=== PATIENT | female | born 1945 | race Caucasian/White ===

== ENCOUNTER 2019-12-31 14:57 | Emergency (ER) | payer OTHER ==
[2019-12-31 15:18] VITALS: BP 114/71; PULSE 73; TEMP 98.2; BMI 26.2
[2019-12-31] MEDS ORDERED: MAG HYDROX/AL HYDROX/SIMETH 30 ML UNIT-DOSE CUP PO ONE (15:51)
[2019-12-31] MEDS ORDERED: FAMOTIDINE 20 MG/50 ML IVPB 20 MG/50 ML MG IVPB ONE ×2 (15:51→16:06)
[2019-12-31] MEDS ORDERED: MAG HYDROX/AL HYDROX/SIMETH 30 ML UNIT-DOSE CUP ONE (16:06)
[2019-12-31 17:10] LABS: BASO % 0.2 % (0-2.0); EOS % 0.7 % (0-4.5); HEMATOCRIT 36.9 % (32.4-45.2); LYMPH % 34.3 % (8-40); MCH 27.1 pg (25.7-33.7); MCHC 32.4 g/dl (32.0-36.0); MEAN CELL VOLUME 83.6 fl (80-96); MEAN PLT VOLUME 8.2 fl (7.5-11.1); MONO % 8.8 % (3.8-10.2); PLATELET COUNT 232 K/MM3 (134-434); RBC 4.42 M/mm3 (3.60-5.2); RDW 13.8 % (11.6-15.6); WHITE BLOOD COUNT 9.6 K/mm3 (4.0-10.0)
[2019-12-31 17:47] LABS: ALBUMIN 3.8 g/dl (3.4-5.0); ALK PHOS 85 U/L (45-117); ANION GAP 8 MMOL/L (8-16); BILIRUBIN,TOTAL 0.5 mg/dL (0.2-1); BLOOD UREA NITROGEN 16.9 mg/dL (7-18); CALCIUM 8.9 mg/dL (8.5-10.1); CHLORIDE 105 mmol/L (98-107); CO2 28 mmol/L (21-32); CREATININE 1.1 mg/dL (0.55-1.3); GLUCOSE,RANDOM 91 mg/dL (74-106); LIPASE 315 U/L (73-393); POTASSIUM 3.8 mmol/L (3.5-5.1); SGOT/AST 19 U/L (15-37); SGPT/ALT 21 U/L (13-61); SODIUM 141 mmol/L (136-145); TOT PROT 7.2 g/dl (6.4-8.2)
[2019-12-31 19:26] LABS: ARTERIAL BLD GAS O2 SATURATION 95.5 mmHg (95-98); ARTERIAL BLOOD GAS PO2 75.3 mmHg (80-100); ARTERIAL BLOOD GAS pH 7.427 (7.350-7.450)
[2019-12-31 19:27] LABS: ALLENS TEST POSITIVE
[2019-12-31 22:47] LABS: URINE APPEARANCE Clear; URINE BILIRUBIN Negative (NEGATIVE); URINE COLOR Yellow; URINE GLUCOSE (UA) Negative (NEGATIVE); URINE KETONE Negative (NEGATIVE); URINE LEUK ESTERASE Negative (NEGATIVE); URINE NITRITE Negative (NEGATIVE); URINE PROTEIN Negative (NEGATIVE); URINE UROBILINOGEN 0.2 mg/dL (0.2-1.0)
[2019-12-31 22:58] LABS: EPI CELLS 10.2 /uL (0-25.1); HYALINE CASTS 0.77 /uL (0-3.1); URINE BACTERIA 38.1 /uL (0-1359); URINE RBC 15.6 /uL (0-23.9); URINE WBC 27.6 /uL (0-25.8)
== END 2019-12-31 23:18 | disposition home or self-care (01) ==
LOC: JER 14:57
PROC: 3E033GC Introduction of Other Therapeutic Substance into Peripheral Vein, Percutaneous Approach (ICD-10-PCS; principal; 2019-12-31)
DX: K21.9 Gastro-esophageal reflux disease without esophagitis (principal)
CPT/HCPCS: 36415; 36600; 71045-TC-FY; 74177-TC; 76705-TC; 80053; 81003; 82803; 83690; 84484; 85025; 87077; 87086; 93005; 93010; 99285-25; Q9967

== ENCOUNTER 2020-02-21 12:35 | Emergency (ER) | payer OTHER ==
[2020-02-21 12:48] VITALS: TEMP 98.2; BMI 26.3
--- NOTE | 2020-02-21 12:48 | PDOC ---
History of Present Illness - General Stated Complaint: ABDOMINAL PAIN - History of Present Illness Initial Comments: 02/21/20 12:53 74yo F with PMH of HTN, HLD, DM, CVA with residual left sided weakness, arthritis coming from [facility] who presents with 3 days of worsening epigastric abdominal pressure like pain worse after eating, nonradiating and associated with nausea. The patient reports that she has had ulcers in the past that normally are not as severe as her current pain. She denies F/C/vomiting/diarrhea/Constipation/dysuria/discharge/chest pain. She endorses nausea, increase frequency, and epigastric pain. ROS GENERAL/CONSTITUTIONAL: No fever or chills. No weakness. HEAD, EYES, EARS, NOSE AND THROAT: No change in vision. No ear pain or dischar ge. No sore throat. CARDIOVASCULAR: No chest pain or shortness of breath RESPIRATORY: No cough, wheezing, or hemoptysis. GASTROINTESTINAL: + nausea, No vomiting, diarrhea or constipation. GENITOURINARY: No dysuria, +frequency MUSCULOSKELETAL: No joint or muscle swelling or pain. No neck or back pain. SKIN: No rash NEUROLOGIC: No headache, vertigo, loss of consciousness, or change in strength/sensation. ENDOCRINE: No increased thirst. No abnormal weight change HEMATOLOGIC/LYMPHATIC: No anemia, easy bleeding, or history of blood clots. ALLERGIC/IMMUNOLOGIC: No hives or skin allergy. PE vital sign:WML GENERAL: Awake, alert, and fully oriented, in no acute distress HEAD: No signs of trauma, normocephalic, atraumatic EYES: EOMI, sclera anicteric, conjunctiva clear ENT: oropharynx clear without exudates. Moist mucosa NECK: Normal ROM, supple LUNGS: No distress, speaks full sentences, clear to auscultation bilaterally HEART: Regular rate and rhythm, normal S1 and S2, no murmurs, rubs or gallops, peripheral pulses normal and equal bilaterally. ABDOMEN: Soft, + epigastric ttp. negative ackerman, No guarding, no rebound. No masses EXTREMITIES : Normal inspection, Normal range of motion, no edema. No clubbing or cyanosis. NEUROLOGICAL: Cranial nerves II through XII grossly intact. Normal speech, no focal sensorimotor deficits SKIN: Warm, Dry, normal turgor, no rashes or lesions noted Assessment and Plan 74yo F with PMH of HTN, HLD, DM, CVA with residual left sided weakness, ar thritis coming from [facility] who presents with 3 days of worsening epigastric abdominal pressure like pain worse after eating, nonradiating and associated with nausea. Consider peptic ulcer vs GERD vs cholelithaisis vs pancreatitis - cbc,cmp, ekg, cxr, trop, lactate -U/S -UA Given GI cocktail 02/21/20 13:25 02/21/20 13:31 02/21/20 16:28 Lab came back showed unremarkable result. UA is negative for UTI. U/S showed no gallstone. CT scan was unremarkable for acute emergent GI problems. Possible hepatic stenosis. 02/21/20 16:46 Patient felt improvement after medication. Patient is safe to discharge home with prescription of pepsid, maalox. Encourage to follow up with PCP and GI. Past History - Medical History Allergies/Adverse Reactions: Allergies Allergy/AdvReac Type Severity Reaction Status Date / Time No Known Allergies Allergy Verified 02/21/20 15:52 Home Medications: Ambulatory Orders Acetaminophen 650 mg PO QID PRN 12/31/19 Ascorbic Acid [Vitamin C] 500 mg PO DAILY 12/31/19 Atorvastatin Ca [Lipitor] 80 mg PO HS 12/31/19 Cholecalciferol (Vitamin D3) [Vitamin D3 -] 50,000 unit PO WEEKLY 12/31/19 Cranberry 500 mg PO DAILY 12/31/19 Docusate Sodium [Colace] 200 mg PO HS 12/31/19 Donepezil HCl [Aricept] 10 mg PO DAILY 12/31/19 Famotidine [Pepcid -] 40 mg PO BID #14 tablet 12/31/19 Ferrous Sulfate [Feosol] 325 mg PO DAILY 12/31/19 Hctz 25Mg/Triamterene [Dyazide 25/37.5 -] 12.5 mg PO DAILY 12/31/19 Hydrochlorothiazide [Hctz -] 12.5 mg PO DAILY 12/31/19 Lisinopril 10 mg PO DAILY 12/31/19 Mag Hydrox/Al Hydrox/Simeth [Mylanta Suspension -] 30 ml PO Q6H #1 bottle 12/31/19 Melatonin 5 mg PO HS 12/31/19 Omeprazole 20 mg PO DAILY 12/31/19 Paroxetine HCl 40 mg PO DAILY 12/31/19 Quetiapine Fumarate [Seroquel -] 50 mg PO HS 12/31/19 Zolpidem Tartrate 10 mg PO BID 12/31/19 Calcium Carbonate/Simethicone [Maalox Advanced Tab Chew] 1 each PO PRN 10 Days #10 tab.chew 02/21/20 Famotidine [Pepcid] 20 mg PO PRN 10 Days #10 tablet 02/21/20 CVA: Yes (5YRS AGO) COPD: No Diabetes: Yes HTN: Yes Hypercholesterolemia: Yes Psychiatric Problems: Yes (DEPRESSION/ANXIETY) - Immunization History Immunization Up to Date: Yes - Psycho-Social/Smoking History Smoking History: Never smoked Have you smoked in the past 12 months: No ED Treatment Course - LABORATORY CBC & Chemistry Diagram: 02/21/20 13:41 02/21/20 13:41 Discharge - Discharge Information Problems reviewed: Yes Clinical Impression/Diagnosis: Peptic ulcer Condition: Good Disposition: HOME - Additional Discharge Information Prescriptions: Calcium Carbonate/Simethicone [Maalox Advanced Tab Chew] 1 each PO PRN 10 Days #10 tab.chew Famotidine [Pepcid] 20 mg PO PRN 10 Days #10 tablet - Follow up/Referral Referrals: Johnson Campo MD [Staff Physician] - - Patient Discharge Instructions Patient Printed Discharge Instructions: DI for Peptic Ulcer Additional Instructions: You were seen in the ED for complaints of upper abdominal pain. In the ED you were evaluated with labwork, ultrasound, CAT scan. Your results showed no abnormality. There does not appear to be an acute need for immediate hospitalization. You are advised to follow up with your Primary Care Physician within 1 week. You were given a referral to GI doctor, please follow up within 1 week. You were given a prescription for pepcid, and maalox, (antacid medication ) Return to the ED immediately if you experience worsening nausea, vomiting, abdominal pain, blood in stool, lightheadedness or any other concerning symptoms. - Post Discharge Activity
[2020-02-21] MEDS ORDERED: MAG HYDROX/AL HYDROX/SIMETH 30 ML UNIT-DOSE CUP PO ONE (12:49)
[2020-02-21] MEDS ORDERED: FAMOTIDINE 20 MG/50 ML IVPB 20 MG/50 ML MG IVPB ONE ×2 (12:49→14:01)
[2020-02-21] MEDS ORDERED: SODIUM CHLORIDE 0.9% 500 ML INFUS.BAG IV ONE (13:18)
[2020-02-21] MEDS ORDERED: ACETAMINOPHEN 325 MG TABLET (FP) PO ONE (13:43)
[2020-02-21 13:58] LABS: BASO % 0.3 % (0-2.0); EOS % 0.2 % (0-4.5); HEMATOCRIT 40.6 % (32.4-45.2); HEMOGLOBIN 13.2 GM/dL (10.7-15.3); LYMPH % 30.9 % (8-40); MCH 27.1 pg (25.7-33.7); MCHC 32.6 g/dl (32.0-36.0); MEAN CELL VOLUME 83.2 fl (80-96); MEAN PLT VOLUME 8.3 fl (7.5-11.1); MONO % 6.4 % (3.8-10.2); NEUT % 62.2 % (42.8-82.8); PLATELET COUNT 236 K/MM3 (134-434); RBC 4.88 M/mm3 (3.60-5.2); RDW 13.5 % (11.6-15.6); WHITE BLOOD COUNT 10.3 K/mm3 (4.0-10.0)
[2020-02-21] MEDS ORDERED: MAG HYDROX/AL HYDROX/SIMETH 30 ML UNIT-DOSE CUP ONE (14:01)
[2020-02-21] MEDS ORDERED: ACETAMINOPHEN 325 MG TABLET (FP) ONE (14:02)
[2020-02-21 14:17] LABS: ALBUMIN 4.1 g/dl (3.4-5.0); BILIRUBIN,TOTAL 0.6 mg/dL (0.2-1); BLOOD UREA NITROGEN 24.9 mg/dL (7-18); CALCIUM 10.1 mg/dL (8.5-10.1); CREATININE 1.2 mg/dL (0.55-1.3); POTASSIUM 3.7 mmol/L (3.5-5.1); TOT PROT 7.7 g/dl (6.4-8.2)
[2020-02-21 16:10] LABS: PH,URINE 8.5 (5.0-8.0); URINE APPEARANCE CLEAR; URINE BILIRUBIN NEGATIVE (NEGATIVE); URINE COLOR YELLOW; URINE GLUCOSE (UA) NEGATIVE (NEGATIVE); URINE KETONE TRACE (NEGATIVE); URINE LEUK ESTERASE NEGATIVE (NEGATIVE); URINE NITRITE NEGATIVE (NEGATIVE); URINE PROTEIN NEGATIVE (NEGATIVE)
[2020-02-21] MEDS ORDERED: LIDOCAINE VISCOUS 2% ORAL/TOP 20 ML UNIT-DOSE CUP MM ONE (16:29)
[2020-02-21] MEDS ORDERED: SUCRALFATE 1 GM TABLET (FP) PO ONE (16:30)
[2020-02-21] MEDS ORDERED: LIDOCAINE VISCOUS 2% ORAL/TOP 20 ML UNIT-DOSE CUP ONE (16:33)
[2020-02-21] MEDS ORDERED: SUCRALFATE 1 GM TABLET (FP) ONE (16:33)
[2020-02-21 16:48] VITALS: BP 143/91; PULSE 85
--- NOTE | 2020-02-21 16:56 | PDOC ---
Documentation entered by Muna Brown SCRIBE, acting as scribe for Jhonatan Connors MD. Jhonatan Connors MD: This documentation has been prepared by the Kevin harman Brenda, SCRIBE, under my direction and personally reviewed by me in its entirety. I confirm that the documentation accurately reflects all work, treatment, procedures, and medical decision making performed by me. Attending Attestation - Resident Resident Name: Khris Whitlock - ED Attending Attestation I have performed the following: I have examined & evaluated the patient, The case was reviewed & discussed with the resident, I agree w/resident's findings & plan, Exceptions are as noted - HPI HPI: 02/21/20 17:04 74yo F with PMH of HTN, HLD, DM, CVA with residual left sided weakness, arthritis coming from [facility] who presents with 3 days of worsening epigastric abdominal pressure like pain worse after eating, nonradiating and associated with nausea. - Physicial Exam PE: 02/21/20 17:06 Vitals: Triage Vital signs reviewed ultrasound General Appearance: No acute distress, well nourished well developed, Head: Atraumatic, Cardiac: Regular rate and rhythym, no murmurs, no rubs, no gallops, Lungs: Clear to auscultation bilateral, good air movement bilaterally, Abdomen: Soft, non distended, normal bowel sounds, non tender to palpation Extremities: Full range of motion to all extremities, no cyanosis, clubbing, or edema Psych: Normal mood, normal affect - Medical Decision Making 02/21/20 17:06 74yo F with PMH of HTN, HLD, DM, CVA with residual left sided weakness, arthritis coming from [facility] who presents with 3 days of worsening epigastric abdominal pressure like pain worse after eating, nonradiating and associated with nausea. No significant pain on abdominal exam but patient still complaining of persistent pain labs within normal limits ultrasound within normal limits CAT scan demonstrates no acute pathology patient feels better after GI cocktail Will recommend GI follow-up Findings, need for follow-up and strict return instructions discussed with patient. Discharge - Discharge Information Problems reviewed: Yes Clinical Impression/Diagnosis: Peptic ulcer Condition: Good Disposition: HOME - Additional Discharge Information Prescriptions: Calcium Carbonate/Simethicone [Maalox Advanced Tab Chew] 1 each PO PRN 10 Days #10 tab.chew Famotidine [Pepcid] 20 mg PO PRN 10 Days #10 tablet - Follow up/Referral Referrals: Johnson Campo MD [Staff Physician] - - Patient Discharge Instructions Patient Printed Discharge Instructions: DI for Peptic Ulcer Additional Instructions: You were seen in the ED for complaints of upper abdominal pain. In the ED you were evaluated with labwork, ultrasound, CAT scan. Your results showed no abnormality. There does not appear to be an acute need for immediate hospitalization. You are advised to follow up with your Primary Care Physician within 1 week. You were given a referral to GI doctor, please follow up within 1 week. You were given a prescription for pepcid, and maalox, (antacid medication ) Return to the ED immediately if you experience worsening nausea, vomiting, abdominal pain, blood in stool, lightheadedness or any other concerning symptoms. - Post Discharge Activity
[2020-02-21] MEDS ORDERED: SUCRALFATE 1 GM TABLET (FP) PO SCH (22:00)
--- NOTE | 2020-02-22 09:23 | EKG ---
Test Reason : Blood Pressure : / mmHG Vent. Rate : 080 BPM Atrial Rate : 080 BPM P-R Int : 184 ms QRS Dur : 084 ms QT Int : 424 ms P-R-T Axes : 028 -11 011 degrees QTc Int : 489 ms POOR DATA QUALITY, INTERPRETATION MAY BE ADVERSELY AFFECTED NORMAL SINUS RHYTHM WITH SINUS ARRHYTHMIA NORMAL ECG WHEN COMPARED WITH ECG OF 31-DEC-2019 16:41, NO SIGNIFICANT CHANGE WAS FOUND Confirmed by Larry Tijerina MD ([id number]) on 02/22/2020 9:23:11 AM Referred By: Confirmed By:Larry Tijerina MD
== END 2020-02-21 18:39 | disposition home or self-care (01) ==
LOC: JER 12:35
PROC: 3E033GC Introduction of Other Therapeutic Substance into Peripheral Vein, Percutaneous Approach (ICD-10-PCS; principal; 2020-02-21)
DX: K27.9 Peptic ulcer, site unspecified, unspecified as acute or chronic, without hemorrhage or perforation (principal)
CPT/HCPCS: 36415; 71046-TC-FY; 74177-TC; 76705-TC; 80053; 81003; 83605; 83690; 84484; 85025; 87086; 93005; 93010; 99285-25; Q9967

== ENCOUNTER 2020-04-04 11:03 | Day surgery (SDC) | payer OTHER ==
--- OUTSIDE RECORDS SUMMARY | 2020-03-21 09:32 | XMS ---
:1945 Author Organization [facility] Care Team Providers Name Role Phone Dano Dallas Unavailable Unavailable MD Kee Robb Unavailable Unavailable Mahdi NEVAEH Dos Santos Unavailable Unavailable Mahdi NEVAEH Dos Santos Unavailable Unavailable Mahdi NEVAEH Dos Santos Unavailable Unavailable Mahdi NEVAEH Dos Santos Unavailable Unavailable Mahdi NEVAEH Dos Santos Unavailable Unavailable Mahdi NEVAEH Dos Santos Unavailable Unavailable Mahdi NEVAEH Dos Santos Unavailable Unavailable MD Brennon Jack Unavailable Unavailable Bora Bourgeois Unavailable Unavailable Lufrano, Larisa Unavailable Unavailable Lufrano, Larisa Unavailable Unavailable Lufrano, Larisa Unavailable Unavailable Lufrano, Larisa Unavailable Unavailable Lufrano, Larisa Unavailable Unavailable Lufrano, Larisa Unavailable Unavailable Lufrano, Larisa Unavailable Unavailable Jez Tariq MD Unavailable Unavailable Amber Tariq MD Unavailable Unavailable Amber Tariq MD Unavailable Unavailable Amber Tariq MD Unavailable Unavailable MD Levon Unavailable Unavailable MD Levon Unavailable Unavailable MD Levon Unavailable Unavailable MD Levon Unavailable Unavailable MD Levon Unavailable Unavailable MD Levon Unavailable Unavailable MD Levon Unavailable Unavailable Unavailable Unavailable Re-disclosure Warning The records that you are about to access may contain information from federally- assisted alcohol or drug abuse programs. If such information is present, then the following federally mandated warning applies: This information has been disclosed to you from records protected by federal confidentiality rules (42 CFR part 2). The federal rules prohibit you from making any further disclosure of this information unless further disclosure is expressly permitted by the written consent of the person to whom it pertains or as otherwise permitted by 42 CFR part 2. A general authorization for the release of medical or other information is NOT sufficient for this purpose. The Federal rules restrict any use of the information to criminally investigate or prosecute any alcohol or drug abuse patient.The records that you are about to access may contain highly sensitive health information, the redisclosure of which is protected by Article 27-F of the [facility] Public Health law. If you continue you may haveaccess to information: Regarding HIV / AIDS; Provided by facilities licensed or operated by the [facility] Office of Mental Health; or Provided by the [facility] Office for People With Developmental Disabilities. If such information is present, then the following [facility] mandated warning applies: This information has been disclosed to you from confidential records which are protected by state law. State law prohibits you from making any further disclosure of this information without the specific written consent of the person to whom it pertains, or as otherwise permitted by law. Any unauthorized further disclosure in violation of state law may result in a fine or snf sentence or both. A general authorization for the release of medical or other information is NOT sufficient authorization for further disclosure. Advance Directives Directive Description Teacher Dancing Patient Financial Services Specialist Status Observation Data Description Source(s ) [facility] CPR S IGMACARE for Nursing and [facility] Re[facility]ita latrice n) [facility] CPR S IGMACARE for Nursing and ([facility] An [facility] Rehabilita latrice n) [facility] CPR S IGMACARE for Nursing and ([facility] Nursing An d Rehabilita latrice n) [facility] CPR S IGMACARE for Nursing and ([facility] An d Rehabilita latrice n) CPR [facility] CPR S IGMACARE for Nursing and ([facility] for Nursing An d Rehabilita latrice n) CPR [facility] CPR S IGMACARE for Nursing and ([facility] for Nursing An d Rehabilita latrice n) CPR [facility] CPR S IGMACARE for Nursing and ([facility] for Nursing An d Rehabilita latrice n) CPR [facility] CPR S IGMACARE for Nursing and ([facility] Nursing An d Rehabilita latrice n) CPR [facility] CPR S IGMACARE for Nursing and ([facility] for Nursing An d Rehabilita latrice n) CPR [facility] CPR S IGMACARE for Nursing and ([facility] for Nursing An d Rehabilita latrice n) Allergies and Adverse Reactions Type Description Substance Reaction Status Data Source(s ) 9 N/A N/A SIGMACARE ([facility] Encounters Encounter Providers Location Date Indications Data Source(s ) Attender: Larisa 03/19/2020 [facility] ([facility] 12:00:00 AM EDT Medical, ) Office Attender: Larisa Gómez 03/19/2020 12:00:00 AM EDT MEDGEN ([facility], ) Office Attender: Larisa Gómez 03/19/2020 12:00:00 AM EDT MEDGEN ([facility], ) Office Attender: Larisa Gómez 03/19/2020 12:00:00 AM EDT [facility]GEN ([facility], ) Office Attender: Larisa Gómez 03/19/2020 12:00:00 AM EDT MEDGEN ([facility], ) Office Attender: Larisa Gómez 03/19/2020 12:00:00 AM EDT MEDGEN ([facility], ) Office Emergency Attender: Maria G 5T-EMERG 04/14/2019 03:41:00 [facility] - [facility]14[facility] 09:00:00 AM EDT PSYCH EVAL Patient discharged. Emergency Attender: Bora 5T-EMERG 01/25/2019 01:27:00 SUICIDAL [facility] - Sophia Bourgeois PM EDT - 01/25/2019 [facility] 06:40:00 PM EDT SUICIDAL Patient discharged. S Attender: MD Sweet ICU-GI SUITE 01/04/2019 11:13:22 AM [facility] EDT - 01/11/2019 Hospital 01:04:00 PM EDT GASTRO S Attender: MD Sweet ICU-GI SUITE 12/22/2018 02:17:08 PM GA [facility] EDT Hospital GASTRO Admission cancelled. Disregard status an d admitted date. Emergency Attender: Jez ICU-EMERG 12/07/2018 ABD PAIN/ REF [facility] - Jermaine Chandni MDAttender: 01:26:00 PM EDT - [facility] 12/07/2018 Hospital 06:00:00 PM EDT ABD PAIN/ REF FROM CLINIC Patient discharged. Outpatient Attender: MD Willett ICU-OBGYN 12/07/2018 11:26:00 [facility] - [facility] AM EDT Hospital Admission cancelled. Disregard status an d admitted date. Inpatient Attender: Mahdi Unit 4-Unit 5 10/20/2018 [facility] (Syed Dos Santos MD 03:40:00 PM EDT - [facility]24[facility] ) 03:26:00 PM EST Patient discharged. Medications Medication Brand Start Product Dose Route Administrative Pharmacy [facility] Indications Reaction Description Data Name Date Form Instructions Instructions Source(s) Aluminum JAY-L 03/19/ complet JAY-LANT A [facility] (St Hydroxide ANTA:3 2019 ed [facility] 40 MG/ML / 47161 12:00: Medica l, Magnesium 00 AM PC) Hydroxide EDT 40 MG/ML / Simethicone 4 MG/ML Oral Suspension JAY-LANTA: [id number] CRANBERRY:6 03/19/ complet CRANBERR Y MED[facility] (St 79040 2019 ed [facility] 12:00: Medical, 00 AM PC) EDT Aspirin 81 ASPIRI 03/19/ complet ASPIRIN [facility] (St MG Delayed N:3084 2019 ed [facility] Release 16 12:00: Medical, Oral Tablet 00 AM PC) ASPIRIN:308 EDT 416 ferrous FERROU 03/19/ complet FERROUS ME DGEN (St sulfate 325 S 2019 ed SULFATE [facility] MG Oral SULFAT 12:00: Medical, Tablet E:3103 00 AM PC) FERROUS 25 EDT SULFATE:310 325 Docusate DOCUSA 03/19/ complet DOCUSATE MED[facility] (St Sodium 100 TE:109 2019 ed [facility] MG Oral 9279 12:00: Medical, Tablet 00 AM PC) DOCUSATE:10 EDT 24410 FLUTICASONE 03/19/ complet FLUTICAS ONE [facility] (St NASAL:33730 2019 ed NASAL [facility] 07 12:00: Medical, 00 AM PC) EDT Memantine NAMEND 03/19/ complet NAMENDA [facility] (St hydrochlori A:9965 2019 ed [facility] de 5 MG 74 12:00: Medical, Oral Tablet 00 AM PC) [Namenda] EDT NAMENDA:996 574 Lisinopril LISINO 03/19/ complet LISINOP RIL [facility] (St 10 MG Oral PRIL:3 2019 ed [facility] Tablet 27164 12:00: Medical, LISINOPRIL: 00 AM PC) 194185 EDT Melatonin 5 MELATO 03/19/ complet MELATO HESHAM [facility] (St MG Oral HESHAM:19 2019 ed [facility] Capsule 9647 12:00: Medical, MELATONIN:1 00 AM PC) 61367 EDT Hydrochloro HYDROC 03/19/ complet HYDROC HLOROT [facility] (St thiazide HLOROT 2019 ed HIAZIDE [facility] 12.5 MG HIAZID 12:00: Medical, Oral E:1998 00 AM PC) Capsule 03 EDT HYDROCHLORO THIAZIDE:19 9903 atorvastati LIPITO 03/19/ complet LIPITO R [facility] (St n 80 MG R:2620 2019 ed [facility] Oral Tablet 95 12:00: Medica l, [Lipitor] 00 AM PC) LIPITOR:262 EDT 095 Ergocalcife VITAMI 03/19/ complet VITAMI N D2 [facility] (St rol 58685 N 2019 ed [facility] UNT Oral D2:136 12:00: Medical , Capsule 7410 00 AM PC) VITAMIN EDT D2:[id number] Ascorbic VITAMI 03/19/ complet VITAMIN C [facility] (St Acid 500 MG N 2019 ed [facility] Oral C:1988 12:00: Medical, Capsule 96 00 AM PC) VITAMIN EDT C:[id number] quetiapine SEROQU 03/19/ complet SEROQUE L [facility] (St 50 MG Oral EL:616 2019 ed [facility] Tablet 489 12:00: Medical, [Seroquel] 00 AM PC) SEROQUEL:61 EDT 6489 pantoprazol PROTON 03/19/ DELAYED 60 complet PRO TONIX [facility] (St e 40 MG IX:284 2019 RELEASE ed [facility] Delayed 400 12:00: TABLET Medical, Release 00 AM PC) Oral Tablet EDT [Protonix] PROTONIX:28 4400 Paroxetine PAROXE 03/19/ complet PAROXET INE [facility] (St 40 MG HENRIK:1 2019 ed [facility] PAROXETINE: 178669 12:00: Medi adriano, [id number] 00 AM PC) EDT Omeprazole OMEPRA 03/19/ complet OMEPRAZ OLE [facility] (St 20 MG ZOLE:1 2019 ed [facility] Delayed 81173 12:00: Medical, Release 00 AM PC) Oral EDT Capsule OMEPRAZOLE: [id number] Zolpidem ZOLPID 03/19/ complet ZOLPIDEM [facility] (St tartrate 10 EM:854 2019 ed [facility] MG Oral 873 12:00: Medical, Tablet 00 AM PC) ZOLPIDEM:85 EDT 4873 ferrous FERROU 03/19/ complet FERROUS ME DGEN (St sulfate 325 S 2019 ed SULFATE [facility] MG Oral SULFAT 12:00: Medical, Tablet E:3103 00 AM PC) FERROUS 25 EDT SULFATE:310 325 Lisinopril LISINO 03/19/ complet LISINOP RIL [facility] (St 10 MG Oral PRIL:3 2019 ed [facility] Tablet 42329 12:00: Medical, LISINOPRIL: 00 AM PC) [id number] EDT atorvastati LIPITO 03/19/ complet LIPITO R [facility] (St n 80 MG R:2620 2019 ed [facility] Oral Tablet 95 12:00: Medica l, [Lipitor] 00 AM PC) LIPITOR:262 EDT 095 Hydrochloro HYDROC 03/19/ complet HYDROC HLOROT [facility] (St thiazide HLOROT 2019 ed HIAZIDE [facility] 12.5 MG HIAZID 12:00: Medical, Oral E:1999 00 AM PC) Capsule 03 EDT HYDROCHLORO THIAZIDE:9902 Aluminum JAY-L 03/19/ complet JAY-LANT A [facility] (St Hydroxide ANTA:3 2019 ed [facility] 40 MG/ML / 00022 12:00: Medica l, Magnesium 00 AM PC) Hydroxide EDT 40 MG/ML / Simethicone 4 MG/ML Oral Suspension JAY-LANTA: 936683 FLUTICASONE 03/19/ complet FLUTICAS ONE [facility] (St NASAL:05803 2019 ed NASAL [facility] 07 12:00: Medical, 00 AM PC) EDT Acetaminoph ACETAM 03/19/ complet ACETAM INOPHE [facility] (St en 325 MG INOPHE 2019 ed N [facility] Oral Tablet N:3137 12:00: Medi adriano, ACETAMINOPH 82 00 AM PC) EN:578346 EDT Donepezil ARICEP 03/19/ complet ARICEPT [facility] (St hydrochlori T:9972 2019 ed [facility] de 10 MG 24 12:00: Medical, Oral Tablet 00 AM PC) [Aricept] EDT ARICEPT:997 224 Memantine NAMEND 03/19/ complet NAMENDA [facility] (St hydrochlori A:9965 2019 ed [facility] de 5 MG 74 12:00: Medical, Oral Tablet 00 AM PC) [Namenda] EDT NAMENDA:996 574 Omeprazole OMEPRA 03/19/ complet OMEPRAZ OLE [facility] (St 20 MG ZOLE:1 2019 ed [facility] Delayed 28977 12:00: Medical, Release 00 AM PC) Oral EDT Capsule OMEPRAZOLE: 229221 Melatonin 5 MELATO 03/19/ complet MELATO HESHAM [facility] (St MG Oral HESHAM:2019 ed [facility] Capsule 9647 12:00: Medical, MELATONIN:1 00 AM PC) 05603 EDT Acetaminoph ACETAM 03/19/ complet ACETAM INOPHE [facility] (St en 325 MG INOPHE 2019 ed N [facility] Oral Tablet N:3137 12:00: Medi adriano, ACETAMINOPH 82 00 AM PC) EN:299870 EDT Donepezil ARICEP 03/19/ complet ARICEPT [facility] (St hydrochlori T:9972 2019 ed [facility] de 10 MG 24 12:00: Medical, Oral Tablet 00 AM PC) [Aricept] EDT ARICEPT:997 224 Aspirin 81 ASPIRI 03/19/ complet ASPIRIN [facility] (St MG Delayed N:3084 2019 ed [facility] Release 16 12:00: Medical, Oral Tablet 00 AM PC) ASPIRIN:308 EDT 416 CRANBERRY:6 complet CRANBERR Y MED[facility] (St 29255 2019 ed [facility] 12:00: Medical, 00 AM PC) EDT Docusate DOCUSA DOCUSATE MEDGEN (St Sodium 100 TE:109 2019 ed [facility] MG Oral 9279 12:00: Medical, Tablet 00 AM PC) DOCUSATE:10 EDT 63991 Aricept Donepe complet Aricept 10 SIGMACARE (donepezil) zil 2018 ed mg tablet ([place] 10 mg hydroc 11:00: [facility] tablet hlorid 00 AM Center for e 10 EST Nursing MG And Oral Rehabilita Tablet tion) [Arice pt] paroxetine Paroxe paroxet ine SIGMACARE 40 mg henrik 2018 ed 40 mg tablet (Sutto n tablet Hydroc 01:20: [facility] hlorid 29 AM Center for e 40 EST Nursing MG And Oral Rehabilita Tablet tion) nitrofurant NITROF complet nitrof uranto SIGMACARE oin URANTO 2019 ed in ([facility] macrocrysta [place], 07:08: macrocrysta l [facility] l 100 mg MACROC 41 AM 100 mg Center for capsule RYSTAL EST capsule Nursing S 100 And MG Rehabilita Oral tion) Capsul e nitrofurant NITROF complet nitrof uranto SIGMACARE oin URANTO 2018 ed in ([facility] macrocrysta [place], 02:00: macrocrysta l [facility] l 100 mg MACROC 00 PM 100 mg Center for capsule RYSTAL EST capsule Nursing S 100 And MG Rehabilita Oral tion) Capsul e Miralax POLYET complet Miralax 17 SIGMACARE (polyethyle HYLENE 2018 ed gram/dose ( [facility] ne glycol GLYCOL 08:00: oral powder [facility] 3350) 17 3350 12 AM Center for gram/dose 60983 EDT Nursing oral powder MG And Powder Rehabilita for tion) Oral Soluti on [Deidra ax] Miralax POLYET 05/05/ complet Miralax 17 SIGMACARE (polyethyle HYLENE 2019 ed gram/dose ( [facility] ne glycol GLYCOL 08:00: oral powder [facility] 3350) 17 3350 12 AM Center for gram/dose 31110 EDT Nursing oral powder MG And Powder Rehabilita for tion) Oral Soluti on [Deidra ax] Miralax POLYET 05/05/ complet Miralax 17 SIGMACARE (polyethyle HYLENE 2019 ed gram/dose ( [facility] ne glycol GLYCOL 08:00: oral powder [facility] 3350) 17 3350 12 AM Center for gram/dose 57466 EDT Nursing oral powder MG And Powder Rehabilita for tion) Oral Soluti on [Deidra ax] cranberry Cranbe 04/28/ complet cranberr y SIGMACARE 450 mg rry 2019 ed 450 mg ([facility] tablet prepar 10:37: tablet [facility] ation 41 AM Center for 450 MG EDT Nursing Oral And Tablet Rehabilita tion) cranberry Cranbe 04/28/ complet cranberr y SIGMACARE 450 mg rry 2019 ed 450 mg ([facility] tablet prepar 10:37: tablet [facility] ation 41 AM Center for 450 MG EDT Nursing Oral And Tablet Rehabilita tion) cranberry Cranbe 04/28/ complet cranberr y SIGMACARE 450 mg rry 2019 ed 450 mg ([facility] tablet prepar 10:37: tablet [facility] ation 41 AM Center for 450 MG EDT Nursing Oral And Tablet Rehabilita tion) Seroquel quetia complet Seroquel 25 SIGMACARE (quetiapine pine 2018 ed mg tablet (Freed tton ) 25 mg 25 MG 01:23: Park tablet Oral 09 AM Center for Tablet EDT Nursing [Seroq And uel] Rehabilita tion) Seroquel quetia complet Seroquel 25 SIGMACARE (quetiapine pine 2018 ed mg tablet (Freed tton ) 25 mg 25 MG 01:23: [facility] tablet Oral 09 AM Center for Tablet EDT Nursing [Seroq And uel] Rehabilita tion) Seroquel quetia complet Seroquel 25 SIGMACARE (quetiapine pine 2018 ed mg tablet (Freed tton ) 25 mg 25 MG 01:23: [facility] tablet Oral 09 AM Center for Tablet EDT Nursing [Seroq And uel] Rehabilita tion) Seroquel quetia 04/15/ complet Seroquel 25 SIGMACARE (quetiapine marylou 2018 ed mg tablet (Freed tton ) 25 mg 25 MG 01:16: [facility] tablet Oral 48 AM Center for Tablet EDT Nursing [Seroq And uel] Rehabilita tion) Seroquel quetia 04/15/ complet Seroquel 25 SIGMACARE (quetiapine marylou 2018 ed mg tablet (Freed tton ) 25 mg 25 MG 01:16: [facility] tablet Oral 48 AM Center for Tablet EDT Nursing [Seroq And uel] Rehabilita tion) Seroquel quetia complet Seroquel 25 SIGMACARE (quetiapine marylou 2018 ed mg tablet (Freed tton ) 25 mg 25 MG 01:16: [facility] tablet Oral 48 AM Center for Tablet EDT Nursing [Seroq And uel] Rehabilita tion) Bactrim DS Sulfam 04/14/ complet Bactrim DS SIGMACARE (sulfametho ethoxa 2019 ed 800 mg-160 ([facility] xazole-trim zole 09:00: mg tablet P ark ethoprim) 800 MG 00 AM Center for 800 mg-160 / EDT Nursing mg tablet Trimet And hoprim Rehabilita 160 MG tion) Oral Tablet [Bactr im] Sulfamethox Bactri [id number] active Bactr im DS [facility] azole 800 m DS 2019 {tab( Health MG / 800 06:56: s)} System Trimethopri mg-160 41 AM m 160 MG mg EDT Oral Tablet oral [Bactrim] tablet Bactrim DS 800 mg-160 mg oral tablet Seroquel quetia 04/14/ complet Seroquel 25 SIGMACARE (quetiapine pine 2018 ed mg tablet (Freed tton ) 25 mg 25 MG 05:42: Park tablet Oral 50 AM Center for Tablet EDT Nursing [Seroq And uel] Rehabilita tion) Ambien Zolpid 04/10/ complet Ambien 5 mg SIGMACARE (zolpidem) em 2019 ed tablet ([facility] 5 mg tablet tartra 07:49: Park te 5 30 AM Center for MG EDT Nursing Oral And Tablet Rehabilita [Ambie tion) n] Ambien Zolpid 04/10/ complet Ambien 5 mg SIGMACARE (zolpidem) em 2018 ed tablet ([facility] 5 mg tablet tartra 07:49: Park te 5 30 AM Center for MG EDT Nursing Oral And Tablet Rehabilita [Ambie tion) n] Ambien Zolpid 04/10/ complet Ambien 5 mg SIGMACARE (zolpidem) em 2018 ed tablet ([facility] 5 mg tablet tartra 07:49: Park te 5 30 AM Center for MG EDT Nursing Oral And Tablet Rehabilita [Ambie tion) n] Seroquel quetia 02/28/ complet Seroquel 25 SIGMACARE (quetiapine pine 2018 ed mg tablet (Freed tton ) 25 mg 25 MG 05:47: [facility] tablet Oral 34 AM Center for Tablet EDT Nursing [Seroq And uel] Rehabilita tion) Seroquel quetia 02/28/ complet Seroquel 25 SIGMACARE (quetiapine pine 2018 ed mg tablet (Freed tton ) 25 mg 25 MG 05:47: [facility] tablet Oral 34 AM Center for Tablet EDT Nursing [Seroq And uel] Rehabilita tion) Seroquel quetia 02/28/ complet Seroquel 25 SIGMACARE (quetiapine pine 2018 ed mg tablet (Freed tton ) 25 mg 25 MG 05:43: [facility] tablet Oral 05 AM Center for Tablet EDT Nursing [Seroq And uel] Rehabilita tion) Seroquel quetia 02/28/ complet Seroquel 25 SIGMACARE (quetiapine pine 2018 ed mg tablet (Freed tton ) 25 mg 25 MG 05:43: [facility] tablet Oral 05 AM Center for Tablet EDT Nursing [Seroq And uel] Rehabilita tion) Seroquel quetia 02/26/ complet Seroquel 25 SIGMACARE (quetiapine pine 2018 ed mg tablet (Freed tton ) 25 mg 25 MG 03:00: [facility] tablet Oral 00 PM Center for Tablet EDT Nursing [Seroq And uel] Rehabilita tion) Seroquel quetia 02/17/ complet Seroquel 25 SIGMACARE (quetiapine pine 2018 ed mg tablet (Freed tton ) 25 mg 25 MG 09:02: [facility] tablet Oral 06 AM Center for Tablet EDT Nursing [Seroq And uel] Rehabilita tion) hydrocortis Hydroc complet hydroc ortiso SIGMACARE one 1 % ortiso 2019 ed ne 1 % ([facility] topical ne 10 06:20: topical [facility] cream MG/ML 23 AM cream Center for Topica EDT Nursing l And Cream Rehabilita tion) hydrocortis Hydroc complet hydroc ortiso SIGMACARE one 1 % ortiso 2018 ed ne 1 % ([facility] topical ne 10 06:20: topical [facility] cream MG/ML 23 AM cream Center for Topica EDT Nursing l And Cream Rehabilita tion) hydrocortis Hydroc complet hydroc ortiso SIGMACARE one 1 % ortiso 2018 ed ne 1 % ([facility] topical ne 10 06:20: topical [facility] cream MG/ML 23 AM cream Center for Topica EDT Nursing l And Cream Rehabilita tion) hydrocortis Hydroc complet hydroc ortiso SIGMACARE one 1 % ortiso 2018 ed ne 1 % ([facility] topical ne 10 06:20: topical [facility] cream MG/ML 23 AM cream Center for Topica EDT Nursing l And Cream Rehabilita tion) Seroquel quetia 01/26/ complet Seroquel 25 SIGMACARE (quetiapine pine 2019 ed mg tablet (Freed tton ) 25 mg 25 MG 03:00: [facility] tablet Oral 00 PM Center for Tablet EDT Nursing [Seroq And uel] Rehabilita tion) Namenda Memant 01/25/ complet Namenda 5 mg SIGMACARE (memantine) ine 2019 ed tablet (Sutto n 5 mg tablet hydroc 03:54: [facility] hlorid 24 AM Center for e 5 MG EDT Nursing Oral And Tablet Rehabilita [Namen tion) da] Namenda Memant 01/25/ complet Namenda 5 mg SIGMACARE (memantine) ine 2019 ed tablet (Sutto n 5 mg tablet hydroc 03:54: [facility] hlorid 24 AM Center for e 5 MG EDT Nursing Oral And Tablet Rehabilita [Namen tion) da] Namenda Memant 01/25/ complet Namenda 5 mg SIGMACARE (memantine) ine 2019 ed tablet (Sutto n 5 mg tablet hydroc 03:54: [facility] hlorid 24 AM Center for e 5 MG EDT Nursing Oral And Tablet Rehabilita [Namen tion) da] Namenda Memant 01/25/ complet Namenda 5 mg SIGMACARE (memantine) ine 2019 ed tablet (Sutto n 5 mg tablet hydroc 03:54: [facility] orid 24 AM Center for e 5 MG EDT Nursing Oral And Tablet Rehabilita [Namen tion) da] Namenda Memant 01/25/ complet Namenda 5 mg SIGMACARE (memantine) ine 2019 ed tablet (Sutto n 5 mg tablet hydroc 03:54: [facility] orid 24 AM Center for e 5 MG EDT Nursing Oral And Tablet Rehabilita [Namen tion) da] Namenda Memant 01/25/ complet Namenda 5 mg SIGMACARE (memantine) ine 2019 ed tablet (Sutto n 5 mg tablet hydroc 03:54: [facility] orid 24 AM Center for e 5 MG EDT Nursing Oral And Tablet Rehabilita [Namen tion) da] Namenda Memant 01/25/ complet Namenda 5 mg SIGMACARE (memantine) ine 2019 ed tablet (Sutto n 5 mg tablet hydroc 03:54: [facility] orid 24 AM Center for e 5 MG EDT Nursing Oral And Tablet Rehabilita [Namen tion) da] pantoprazol pantop 01/11/ complet pantop razole SIGMACARE e 20 mg razole 2018 ed 20 mg ([facility] tablet,candice 20 MG 07:43: tablet,del margarita [facility] yed release Delaye 21 AM ed release Center for d EDT Nursing Releas And e Oral Rehabilita Tablet tion) pantoprazol pantop complet pantop razole SIGMACARE e 20 mg razole 2018 ed 20 mg ([facility] tablet,candice 20 MG 07:43: tablet,del ay [facility] yed release Delaye 21 AM ed release Center for d EDT Nursing Releas And e Oral Rehabilita Tablet tion) pantoprazol pantop complet pantop razole SIGMACARE e 20 mg razole 2018 ed 20 mg ([facility] tablet,candice 20 MG 07:43: tablet,del ay [facility] yed release Delaye 21 AM ed release Center for d EDT Nursing Releas And e Oral Rehabilita Tablet tion) pantoprazol pantop complet pantop razole SIGMACARE e 20 mg razole 2018 ed 20 mg ([facility] tablet,candice 20 MG 07:43: tablet,del ay [facility] yed release Delaye 21 AM ed release Center for d EDT Nursing Releas And e Oral Rehabilita Tablet tion) pantoprazol pantop complet pantop razole SIGMACARE e 20 mg razole 2018 ed 20 mg ([facility] tablet,candice 20 MG 07:43: tablet,del ay [facility] yed release Delaye 21 AM ed release Center for d EDT Nursing Releas And e Oral Rehabilita Tablet tion) pantoprazol pantop complet pantop razole SIGMACARE e 20 mg razole 2018 ed 20 mg ([facility] tablet,candice 20 MG 07:43: tablet,del ay [facility] yed release Delaye 21 AM ed release Center for d EDT Nursing Releas And e Oral Rehabilita Tablet tion) pantoprazol pantop complet pantop razole SIGMACARE e 20 mg razole 2018 ed 20 mg ([facility] tablet,candice 20 MG 07:43: tablet,del ay [facility] yed release Delaye 21 AM ed release Center for d EDT Nursing Releas And e Oral Rehabilita Tablet tion) Aspirin Aspiri 12/27/ complet Aspirin SI [facility] 81 2019 ed Childrens 81 (S [place] (aspirin) MG 06:15: mg chewable P ark 81 mg Chewab 17 AM tablet Center fo r chewable le EDT Nursing tablet Tablet And Rehabilita tion) Aspirin Aspiri 12/27/ complet [facility] 2019 ed Childrens 81 ([place] (aspirin) MG 06:15: mg chewable P ark 81 mg Chewab 17 AM tablet Center fo r chewable le EDT Nursing tablet Tablet And Rehabilita tion) Aspirin Aspiri 12/27/ complet [facility] 81 2018 ed Childrens 81 (S [place] (aspirin) MG 06:15: mg chewable P ark 81 mg Chewab 17 AM tablet Center fo r chewable le EDT Nursing tablet Tablet And Rehabilita tion) Aspirin Aspiri 12/27/ complet [facility] 2019 ed Childrens 81 (S [place] (aspirin) MG 06:15: mg chewable P ark 81 mg Chewab 17 AM tablet Center fo r chewable le EDT Nursing tablet Tablet And Rehabilita tion) Aspirin Aspiri 12/27/ complet Aspirin [facility] 81 2019 ed [facility] 81 ([place] (aspirin) MG 06:15: mg chewable [facility] 81 mg Chewab 17 AM tablet Center fo r chewable le EDT Nursing tablet Tablet And Rehabilita tion) Aspirin Aspiri 12/27/ complet Aspirin [facility] 81 2019 ed [facility] 81 ([place] (aspirin) MG 06:15: mg chewable [facility] 81 mg Chewab 17 AM tablet Center fo r chewable le EDT Nursing tablet Tablet And Rehabilita tion) Aspirin Aspiri 12/27/ complet Aspirin [facility] 81 2019 ed [facility] 81 ([place] (aspirin) MG 06:15: mg chewable [facility] 81 mg Chewab 17 AM tablet Center fo r chewable le EDT Nursing tablet Tablet And Rehabilita tion) Seroquel quetia complet Seroquel 25 [facility] (quetiapine pine 2018 ed mg tablet ([place] ) 25 mg 25 MG 12:38: [facility] tablet Oral 45 PM Center for Tablet EDT Nursing [Seroq And uel] Rehabilita tion) Seroquel quetia complet Seroquel 25 [facility] (quetiapine pine 2018 ed mg tablet ([place] ) 25 mg 25 MG 12:38: [facility] tablet Oral 45 PM Center for Tablet EDT Nursing [Seroq And uel] Rehabilita tion) Acidophilus [id number] complet Acidop hilus [facility] (lactobacil 47136 2018 ed capsule ([place] jan 12:46: [facility] acidophilus 35 PM Center for ) capsule EDT Nursing And Rehabilita tion) omeprazole Omepra complet omepraz ole [facility] 20 mg zole 2018 ed 20 mg ([facility] capsule,del 20 MG 12:46: capsule,de la Lisseth ayed Delaye 33 PM yed release Cente r for release d EDT Nursing Releas And e Oral Rehabilita Capsul tion) e Pepcid Famoti 12/06/ complet Pepcid 20 m g [facility] (famotidine dine 2018 ed tablet ([place] ) 20 mg 20 MG 01:53: [facility] tablet Oral 23 AM Center for Tablet EDT Nursing [Pepci And d] Rehabilita tion) acetaminoph Acetam 12/03/ complet acetam inophe [facility] en 325 mg inophe 2019 ed n 325 mg ([place] tablet n 325 07:19: tablet [facility] MG 05 AM Center for Oral EDT Nursing Tablet And Rehabilita tion) acetaminoph Acetam 12/03/ complet acetam inophe [facility] en 325 mg inophe 2019 ed n 325 mg ([place] tablet n 325 07:19: tablet [facility] MG 05 AM Center for Oral EDT Nursing Tablet And Rehabilita tion) acetaminoph Acetam 12/03/ complet acetam inophe [facility] en 325 mg inophe 2019 ed n 325 mg ([place] tablet n 325 07:19: tablet [facility] MG 05 AM Center for Oral EDT Nursing Tablet And Rehabilita tion) acetaminoph Acetam 12/03/ complet acetam inophe [facility] en 325 mg inophe 2019 ed n 325 mg ([place] tablet n 325 07:19: tablet [facility] MG 05 AM Center for Oral EDT Nursing Tablet And Rehabilita tion) acetaminoph Acetam 12/03/ complet acetam inophe [facility] en 325 mg inophe 2019 ed n 325 mg ([place] tablet n 325 07:19: tablet [facility] MG 05 AM Center for Oral EDT Nursing Tablet And Rehabilita tion) acetaminoph Acetam 12/03/ complet acetam inophe [facility] en 325 mg inophe 2019 ed n 325 mg ([place] tablet n 325 07:19: tablet [facility] MG 05 AM Center for Oral EDT Nursing Tablet And Rehabilita tion) acetaminoph Acetam 12/03/ complet acetam inophe [facility] en 325 mg inophe 2019 ed n 325 mg ([place] tablet n 325 07:19: tablet [facility] MG 05 AM Center for Oral EDT Nursing Tablet And Rehabilita tion) acetaminoph Acetam 12/03/ complet acetam inophe [facility] en 325 mg inophe 2019 ed n 325 mg ([place] tablet n 325 07:19: tablet [facility] MG 05 AM Center for Oral EDT Nursing Tablet And Rehabilita tion) acetaminoph Acetam 12/03/ complet acetam inophe [facility] en 325 mg inophe 2019 ed n 325 mg ([place] tablet n 325 07:19: tablet [facility] MG 05 AM Center for Oral EDT Nursing Tablet And Rehabilita tion) Andreia Zolpid 11/24/ complet Ambien 5 mg [facility] (zolpidem) em 2019 ed tablet ([facility] 5 mg tablet tartra 12:25: [facility] te 5 28 PM Center for MG EDT Nursing Oral And Tablet Rehabilita [Ambie tion) n] Ambien Zolpid 11/24/ complet Ambien 5 mg [facility] (zolpidem) em 2018 ed tablet ([facility] 5 mg tablet tartra 12:25: [facility] te 5 28 PM Center for MG EDT Nursing Oral And Tablet Rehabilita [Ambie tion) n] Ambien Zolpid 11/24/ complet Ambien 5 mg [facility] (zolpidem) em 2019 ed tablet ([facility] 5 mg tablet tartra 12:25: [facility] te 5 28 PM Center for MG EDT Nursing Oral And Tablet Rehabilita [Ambie tion) n] Ambien Zolpid 11/24/ complet Ambien 5 mg [facility] (zolpidem) em 2018 ed tablet ([facility] 5 mg tablet tartra 12:25: [facility] te 5 28 PM Center for MG EDT Nursing Oral And Tablet Rehabilita [Ambie tion) n] Ambien Zolpid 11/24/ complet Ambien 5 mg [facility] (zolpidem) em 2018 ed tablet ([facility] 5 mg tablet tartra 12:25: [facility] te 5 28 PM Center for MG EDT Nursing Oral And Tablet Rehabilita [Ambie tion) n] Ambien Zolpid 11/24/ complet Ambien 5 mg [facility] (zolpidem) em 2018 ed tablet ([facility] 5 mg tablet tartra 12:25: [facility] te 5 28 PM Center for MG EDT Nursing Oral And Tablet Rehabilita [Ambie tion) n] cyanocobala Vitami 11/11/ complet cyanoc obalam [facility] min (vit n B 2018 ed in (vit ([place] B-12) 1,000 1 03:00: B-12) 1,000 [facility] mcg/mL MG/ML 00 PM mcg/mL Center fo r injection Inject EDT injection Pippa sing solution able solution And Soluti Rehabilita on tion) cyanocobala Vitami 11/11/ complet cyanoc obalam [facility] min (vit n B 2018 ed in (vit ([place] B-12) 1,000 1 03:00: B-12) 1,000 [facility] mcg/mL MG/ML 00 PM mcg/mL Center fo r injection Inject EDT injection Pippa sing solution able solution And Soluti Rehabilita on tion) cyanocobala Vitami 11/11/ complet cyanoc obalam [facility] min (vit n B 2018 ed in (vit ([place] B-12) 1,000 1 03:00: B-12) 1,000 [facility] mcg/mL MG/ML 00 PM mcg/mL Center fo r injection Inject EDT injection Pippa sing solution able solution And Soluti Rehabilita on tion) cyanocobala Vitami 11/11/ complet cyanoc obalam [facility] min (vit n B 2018 ed in (vit ([place] B-12) 1,000 1 03:00: 12) 1,000 [facility] mcg/mL MG/ML 00 PM mcg/mL Center fo r injection Inject EDT injection Pippa sing solution able solution And Soluti Rehabilita on tion) cyanocobala Vitami 11/11/ complet cyanoc obalam [facility] min (vit n B 2018 ed in (vit ([place] B-12) 1,000 1 03:00: -12) 1,000 [facility] mcg/mL MG/ML 00 PM mcg/mL Center fo r injection Inject EDT injection Pippa sing solution able solution And Soluti Rehabilita on tion) cyanocobala Vitami 11/11/ complet cyanoc obalam [facility] min (vit n B 2018 ed in (vit ([place] B-12) 1,000 1 03:00: B-12) 1,000 [facility] mcg/mL MG/ML 00 PM mcg/mL Center fo r injection Inject EDT injection Pippa sing solution able solution And Soluti Rehabilita on tion) cyanocobala Vitami 11/11/ complet cyanoc obalam [facility] min (vit n B 2018 ed in (vit ([place] B-12) 1,000 1 03:00: B-12) 1,000 [facility] mcg/mL MG/ML 00 PM mcg/mL Center fo r injection Inject EDT injection Pippa sing solution able solution And Soluti Rehabilita on tion) cyanocobala Vitami 11/11/ complet cyanoc obalam [facility] min (vit n B 2018 ed in (vit ([place] B-12) 1,000 1 03:00: B-) 1,000 [facility] mcg/mL MG/ML 00 PM mcg/mL Center fo r injection Inject EDT injection Pippa sing solution able solution And Soluti Rehabilita on tion) cyanocobala Vitami 11/11/ complet cyanoc obalam [facility] min (vit n B 2018 ed in (vit ([place] B-12) 1,000 1 03:00: B) 1,000 [facility] mcg/mL MG/ML 00 PM mcg/mL Center fo r injection Inject EDT injection Pippa sing solution able solution And Soluti Rehabilita on tion) cyanocobala Vitami 11/11/ complet cyanoc obalam [facility] min (vit n B 2018 ed in (vit ([place] B-12) 1,000 1 03:00: B) 1,000 [facility] mcg/mL MG/ML 00 PM mcg/mL Center fo r injection Inject EDT injection Pippa sing solution able solution And Soluti Rehabilita on tion) lorazepam 1 Loraze complet loraze alexx 1 [facility] mg tablet alexx 1 2019 ed mg tablet ([place] MG 04:35: [facility] Oral 00 AM Center for Tablet EDT Nursing And Rehabilita tion) Namenda Memant complet Namenda 5 mg [facility] (memantine) ine 2019 ed tablet ([place] 5 mg tablet hydroc 11:56: [facility] hlorid 32 AM Center for e 5 MG EDT Nursing Oral And Tablet Rehabilita [Namen tion) da] Namenda Memant complet Namenda 5 mg [facility] (memantine) ine 2019 ed tablet ([place] 5 mg tablet hydroc 11:56: [facility] hlorid 32 AM Center for e 5 MG EDT Nursing Oral And Tablet Rehabilita [Namen tion) da] trazodone Trazod 11/01/ complet trazodon e 50 [facility] 50 mg one 2019 ed mg tablet ([facility] tablet Hydroc 06:44: [facility] hlorid 43 AM Center for e 50 EDT Nursing MG And Oral Rehabilita Tablet tion) ferrous ferrou 10/25/ complet ferrous [facility] sulfate 325 s 2019 ed sulfate 325 ( [facility] mg (65 mg sulfat 07:30: mg (65 mg [facility] iron) e 325 25 AM iron) tablet Cent er for tablet MG EDT Nursing Oral And Tablet Rehabilita tion) ferrous ferrou complet ferrous [facility] sulfate 325 s 2019 ed sulfate 325 ( [facility] mg (65 mg sulfat 07:30: mg (65 mg [facility] iron) e 325 25 AM iron) tablet Cent er for tablet MG EDT Nursing Oral And Tablet Rehabilita tion) ferrous ferrou complet ferrous [facility] sulfate 325 s 2019 ed sulfate 325 ( [facility] mg (65 mg sulfat 07:30: mg (65 mg [facility] iron) e 325 25 AM iron) tablet Cent er for tablet MG EDT Nursing Oral And Tablet Rehabilita tion) ferrous ferrou complet ferrous [facility] sulfate 325 s 2018 ed sulfate 325 ( [facility] mg (65 mg sulfat 07:30: mg (65 mg [facility] iron) e 325 25 AM iron) tablet Cent er for tablet MG EDT Nursing Oral And Tablet Rehabilita tion) ferrous ferrou complet ferrous [facility] sulfate 325 s 2019 ed sulfate 325 ( [facility] mg (65 mg sulfat 07:30: mg (65 mg [facility] iron) e 325 25 AM iron) tablet Cent er for tablet MG EDT Nursing Oral And Tablet Rehabilita tion) ferrous ferrou complet ferrous [facility] sulfate 325 s 2019 ed sulfate 325 ( [facility] mg (65 mg sulfat 07:30: mg (65 mg [facility] iron) e 325 25 AM iron) tablet Cent er for tablet MG EDT Nursing Oral And Tablet Rehabilita tion) ferrous ferrou complet ferrous [facility] sulfate 325 s 2019 ed sulfate 325 ( [facility] mg (65 mg sulfat 07:30: mg (65 mg [facility] iron) e 325 25 AM iron) tablet Cent er for tablet MG EDT Nursing Oral And Tablet Rehabilita tion) ferrous ferrou complet ferrous [facility] sulfate 325 s 2019 ed sulfate 325 ( [facility] mg (65 mg sulfat 07:30: mg (65 mg [facility] iron) e 325 25 AM iron) tablet Cent er for tablet MG EDT Nursing Oral And Tablet Rehabilita tion) ferrous ferrou complet ferrous [facility] sulfate 325 s 2019 ed sulfate 325 ( [facility] mg (65 mg sulfat 07:30: mg (65 mg [facility] iron) e 325 25 AM iron) tablet Cent er for tablet MG EDT Nursing Oral And Tablet Rehabilita tion) ferrous ferrou complet ferrous [facility] sulfate 325 s 2019 ed sulfate 325 ( [facility] mg (65 mg sulfat 07:30: mg (65 mg [facility] iron) e 325 25 AM iron) tablet Cent er for tablet MG EDT Nursing Oral And Tablet Rehabilita tion) atorvastati atorva complet atorva statin [facility] n 80 mg statin 2019 ed 80 mg tablet ([place] tablet 80 MG 03:00: [facility] Oral 00 PM Center for Tablet EDT Nursing And Rehabilita tion) atorvastati atorva complet atorva statin [facility] n 80 mg statin 2019 ed 80 mg tablet ([place] tablet 80 MG 03:00: [facility] Oral 00 PM Center for Tablet EDT Nursing And Rehabilita tion) Rozerem ramelt complet Rozerem 8 mg [facility] (ramelteon) chari 8 2018 ed tablet ([place] 8 mg tablet MG 03:00: [facility] Oral 00 PM Center for Tablet EDT Nursing [Rozer And em] Rehabilita tion) atorvastati atorva complet atorva statin [facility] n 80 mg statin 2019 ed 80 mg tablet ([place] tablet 80 MG 03:00: [facility] Oral 00 PM Center for Tablet EDT Nursing And Rehabilita tion) atorvastati atorva complet atorva statin [facility] n 80 mg statin 2019 ed 80 mg tablet ([place] tablet 80 MG 03:00: [facility] Oral 00 PM Center for Tablet EDT Nursing And Rehabilita tion) atorvastati atorva complet atorva statin [facility] n 80 mg statin 2019 ed 80 mg tablet ([place] tablet 80 MG 03:00: [facility] Oral 00 PM Center for Tablet EDT Nursing And Rehabilita tion) atorvastati atorva complet atorva statin [facility] n 80 mg statin 2019 ed 80 mg tablet ([place] tablet 80 MG 03:00: [facility] Oral 00 PM Center for Tablet EDT Nursing And Rehabilita tion) atorvastati atorva atorva statin [facility] n 80 mg statin 2019 ed 80 mg tablet ([place] tablet 80 MG 03:00: [facility] Oral 00 PM Center for Tablet EDT Nursing And Rehabilita tion) Rozerem ramelt Rozerem 8 mg [facility] (ramelteon) chari 8 2018 ed tablet ([place] 8 mg tablet MG 03:00: [facility] Oral 00 PM Center for Tablet EDT Nursing [Rozer And em] Rehabilita tion) atorvastati atorva atorva statin [facility] n 80 mg statin 2019 ed 80 mg tablet ([place] tablet 80 MG 03:00: [facility] Oral 00 PM Center for Tablet EDT Nursing And Rehabilita tion) atorvastati atorva atorva statin [facility] n 80 mg statin 2018 ed 80 mg tablet ([place] tablet 80 MG 03:00: [facility] Oral 00 PM Center for Tablet EDT Nursing And Rehabilita tion) atorvastati atorva atorva statin [facility] n 80 mg statin 2018 ed 80 mg tablet ([place] tablet 80 MG 03:00: [facility] Oral 00 PM Center for Tablet EDT Nursing And Rehabilita tion) Estrace Estrad Estrace [facility] (estradiol) iol 2019 ed 0.01% (0.1 ([place] 0.01% (0.1 0.1 09:53: mg/gram) Par k mg/gram) MG/ML 11 AM vaginal Center for vaginal Vagina EDT cream Nursing cream l And Cream Rehabilita [Estra tion) ce] hydrochloro Hydroc hydroc hlorot [facility] thiazide hlorot 2019 ed hiazide 12.5 ( [facility] 12.5 mg hiazid 07:58: mg tablet Par k tablet e 12.5 15 AM Center for MG EDT Nursing Oral And Tablet Rehabilita tion) lisinopril Lisino lisinop ril [facility] 10 mg pril 2019 ed 10 mg tablet ([place] tablet 10 MG 07:58: [facility] Oral 15 AM Center for Tablet EDT Nursing And Rehabilita tion) paroxetine Paroxe paroxet ine [facility] 40 mg henrik 2018 ed 40 mg tablet ([place] tablet Hydroc 07:58: [facility] hlorid 15 AM Center for e 40 EDT Nursing MG And Oral Rehabilita Tablet tion) lisinopril Lisino lisinop ril [facility] 10 mg pril 2019 ed 10 mg tablet ([place] tablet 10 MG 07:58: [facility] Oral 15 AM Center for Tablet EDT Nursing And Rehabilita tion) hydrochloro Hydroc complet hydroc hlorot [facility] thiazide hlorot 2019 ed hiazide 12.5 ( [facility] 12.5 mg hiazid 07:58: mg tablet Par k tablet e 12.5 15 AM Center for MG EDT Nursing Oral And Tablet Rehabilita tion) polyethylen POLYET polyet hylene [facility] e glycol HYLENE 2018 ed glycol 3350 ([place] 3350 17 GLYCOL 07:58: 17 gram/dose [facility] gram/dose 3350 15 AM oral powder Ce nter for oral powder [id number] EDT Nursing MG And Powder Rehabilita for tion) Oral Soluti on lisinopril Lisino lisinop ril [facility] 10 mg pril 2018 ed 10 mg tablet ([place] tablet 10 MG 07:58: [facility] Oral 15 AM Center for Tablet EDT Nursing And Rehabilita tion) paroxetine Paroxe paroxet ine [facility] 40 mg henrik 2018 ed 40 mg tablet ([place] tablet Hydroc 07:58: [facility] hlorid 15 AM Center for e 40 EDT Nursing MG And Oral Rehabilita Tablet tion) hydrochloro Hydroc hydroc hlorot [facility] thiazide hlorot 2018 ed hiazide 12.5 ( [facility] 12.5 mg hiazid 07:58: mg tablet Par k tablet e 12.5 15 AM Center for MG EDT Nursing Oral And Tablet Rehabilita tion) polyethylen POLYET polyet hylene [facility] e glycol HYLENE 2018 ed glycol 3350 ([place] 3350 17 GLYCOL 07:58: 17 gram/dose [facility] gram/dose 3350 15 AM oral powder Ce nter for oral powder [id number] EDT Nursing MG And Powder Rehabilita for tion) Oral Soluti on donepezil 5 Donepe donepe zil 5 [facility] mg tablet zil 2019 ed mg tablet ([place] hydroc 07:58: [facility] hlorid 15 AM Center for e 5 MG EDT Nursing Oral And Tablet Rehabilita tion) paroxetine Paroxe paroxet ine [facility] 40 mg henrik 2019 ed 40 mg tablet ([place] tablet Hydroc 07:58: [facility] hlorid 15 AM Center for e 40 EDT Nursing MG And Oral Rehabilita Tablet tion) lisinopril Lisino lisinop ril [facility] 10 mg pril 2019 ed 10 mg tablet ([place] tablet 10 MG 07:58: [facility] Oral 15 AM Center for Tablet EDT Nursing And Rehabilita tion) paroxetine Paroxe paroxet ine [facility] 40 mg henrik 2019 ed 40 mg tablet ([place] tablet Hydroc 07:58: [facility] hlorid 15 AM Center for e 40 EDT Nursing MG And Oral Rehabilita Tablet tion) hydrochloro Hydroc hydroc hlorot [facility] thiazide hlorot 2019 ed hiazide 12.5 ( [facility] 12.5 mg hiazid 07:58: mg tablet Par k tablet e 12.5 15 AM Center for MG EDT Nursing Oral And Tablet Rehabilita tion) polyethylen POLYET polyet hylene [facility] e glycol HYLENE 2019 ed glycol 3350 ([place] 3350 17 GLYCOL 07:58: 17 gram/dose [place] gram/dose 3350 15 AM oral powder Ce nter for oral powder [id number] EDT Nursing MG And Powder Rehabilita for tion) Oral Soluti on hydrochloro Hydroc hydroc hlorot [facility] thiazide hlorot 2019 ed hiazide 12.5 ( [facility] 12.5 mg hiazid 07:58: mg tablet Par k tablet e 12.5 15 AM Center for MG EDT Nursing Oral And Tablet Rehabilita tion) lisinopril Lisino lisinop ril [facility] 10 mg pril 2019 ed 10 mg tablet ([place] tablet 10 MG 07:58: [facility] Oral 15 AM Center for Tablet EDT Nursing And Rehabilita tion) lorazepam 1 [place] loraze alexx 1 [facility] mg tablet alexx 1 2019 ed mg tablet ([place] MG 07:58: [facility] Oral 15 AM Center for Tablet EDT Nursing And Rehabilita tion) hydrochloro Hydroc 10/20/ complet hydroc hlorot [facility] thiazide hlorot 2019 ed hiazide 12.5 ( [facility] 12.5 mg hiazid 07:58: mg tablet Par k tablet e 12.5 15 AM Center for MG EDT Nursing Oral And Tablet Rehabilita tion) polyethylen POLYET polyet hylene [facility] e glycol HYLENE 2019 ed glycol 3350 ([place] 3350 17 GLYCOL 07:58: 17 gram/dose [facility] gram/dose 3350 15 AM oral powder Ce nter for oral powder [id number] EDT Nursing MG And Powder Rehabilita for tion) Oral Soluti on lisinopril Lisino complet lisinop ril [facility] 10 mg pril 2019 ed 10 mg tablet ([place] tablet 10 MG 07:58: [facility] Oral 15 AM Center for Tablet EDT Nursing And Rehabilita tion) paroxetine Paroxe paroxet ine [facility] 40 mg henrik 2019 ed 40 mg tablet ([place] tablet Hydroc 07:58: [facility] hlorid 15 AM Center for e 40 EDT Nursing MG And Oral Rehabilita Tablet tion) polyethylen POLYET polyet hylene [facility] e glycol HYLENE 2018 ed glycol 3350 ([place] 3350 17 GLYCOL 07:58: 17 gram/dose [facility] gram/dose 3350 15 AM oral powder Ce nter for oral powder [id number] EDT Nursing MG And Powder Rehabilita for tion) Oral Soluti on paroxetine Paroxe paroxet ine [facility] 40 mg henrik 2019 ed 40 mg tablet ([place] tablet Hydroc 07:58: [facility] hlorid 15 AM Center for e 40 EDT Nursing MG And Oral Rehabilita Tablet tion) hydrochloro Hydroc complet hydroc hlorot [facility] thiazide hlorot 2019 ed hiazide 12.5 ( [facility] 12.5 mg hiazid 07:58: mg tablet Par k tablet e 12.5 15 AM Center for MG EDT Nursing Oral And Tablet Rehabilita tion) lisinopril Lisino complet lisinop ril [facility] 10 mg pril 2019 ed 10 mg tablet ([place] tablet 10 MG 07:58: [facility] Oral 15 AM Center for Tablet EDT Nursing And Rehabilita tion) polyethylen POLYET complet polyet hylene [facility] e glycol HYLENE 2018 ed glycol 3350 ([place] 3350 17 GLYCOL 07:58: 17 gram/dose [facility] gram/dose 3350 15 AM oral powder Ce nter for oral powder [id number] EDT Nursing MG And Powder Rehabilita for tion) Oral Soluti on hydrochloro Hydroc complet hydroc hlorot [facility] thiazide hlorot 2019 ed hiazide 12.5 ( [facility] 12.5 mg hiazid 07:58: mg tablet Par k tablet e 12.5 15 AM Center for MG EDT Nursing Oral And Tablet Rehabilita tion) paroxetine Paroxe paroxet ine [facility] 40 mg henrik 2019 ed 40 mg tablet ([place] tablet Hydroc 07:58: [facility] hlorid 15 AM Center for e 40 EDT Nursing MG And Oral Rehabilita Tablet tion) lisinopril Lisino lisinop ril [facility] 10 mg pril 2019 ed 10 mg tablet ([place] tablet 10 MG 07:58: [facility] Oral 15 AM Center for Tablet EDT Nursing And Rehabilita tion) polyethylen POLYET complet polyet hylene [facility] e glycol HYLENE 2018 ed glycol 3350 ([place] 3350 17 GLYCOL 07:58: 17 gram/dose [facility] gram/dose 3350 15 AM oral powder Ce nter for oral powder [id number] EDT Nursing MG And Powder Rehabilita for tion) Oral Soluti on lisinopril Lisino lisinop ril [facility] 10 mg pril 2019 ed 10 mg tablet ([place] tablet 10 MG 07:58: [facility] Oral 15 AM Center for Tablet EDT Nursing And Rehabilita tion) paroxetine Paroxe complet paroxet ine [facility] 40 mg henrik 2019 ed 40 mg tablet ([place] tablet Hydroc 07:58: [facility] hlorid 15 AM Center for e 40 EDT Nursing MG And Oral Rehabilita Tablet tion) hydrochloro Hydroc complet hydroc hlorot [facility] thiazide hlorot 2019 ed hiazide 12.5 ( [facility] 12.5 mg hiazid 07:58: mg tablet Par k tablet e 12.5 15 AM Center for MG EDT Nursing Oral And Tablet Rehabilita tion) paroxetine Paroxe paroxet ine [facility] 40 mg henrik 2019 ed 40 mg tablet ([place] tablet Hydroc 07:58: [facility] hlorid 15 AM Center for e 40 EDT Nursing MG And Oral Rehabilita Tablet tion) lisinopril Lisino lisinop ril [facility] 10 mg pril 2019 ed 10 mg tablet ([place] tablet 10 MG 07:58: [facility] Oral 15 AM Center for Tablet EDT Nursing And Rehabilita tion) paroxetine Paroxe paroxet ine [facility] 40 mg henrik 2019 ed 40 mg tablet ([place] tablet Hydroc 07:58: [facility] hlorid 15 AM Center for e 40 EDT Nursing MG And Oral Rehabilita Tablet tion) polyethylen POLYET polyet hylene [facility] e glycol HYLENE 2018 ed glycol 3350 ([place] 3350 17 GLYCOL 07:58: 17 gram/dose [facility] gram/dose 3350 15 AM oral powder Ce nter for oral powder [id number] EDT Nursing MG And Powder Rehabilita for tion) Oral Soluti on hydrochloro Hydroc hydroc hlorot [facility] thiazide hlorot 2019 ed hiazide 12.5 ( [facility] 12.5 mg hiazid 07:58: mg tablet Par k tablet e 12.5 15 AM Center for MG EDT Nursing Oral And Tablet Rehabilita tion) Vitamin D2 Ergoca Vitamin D2 [facility] (ergocalcif lcifer 2019 ed 50,000 unit ([facility] kenny ol 07:58: capsule [facility] (vitamin 74581 14 AM Center fo r d2)) 50,000 UNT EDT Nursing unit Oral And capsule Capsul Rehabilita e tion) Vitamin D2 Ergoca Vitamin D2 [facility] (ergocalcif lcifer 2019 ed 50,000 unit ([facility] kenny ol 07:58: capsule [facility] (vitamin 13448 14 AM Center fo r d2)) 50,000 UNT EDT Nursing unit Oral And capsule Capsul Rehabilita e tion) trazodone Trazod complet trazodon e 50 [facility] 50 mg one 2019 ed mg tablet ([facility] tablet Hydroc 07:58: [facility] hlorid 14 AM Center for e 50 EDT Nursing MG And Oral Rehabilita Tablet tion) quetiapine quetia 10/20/ complet quetiap ine [facility] 50 mg quinhagak 2019 ed 50 mg tablet ([place] tablet 50 MG 07:58: [facility] Oral 14 AM Center for Tablet EDT Nursing And Rehabilita tion) Vitamin D2 Ergoca 10/20/ complet Vitamin D2 [facility] (ergocalcif lcifer 2019 ed 50,000 unit ([facility] kenny ol 07:58: capsule [facility] (vitamin 79649 14 AM Center fo r d2)) 50,000 UNT EDT Nursing unit Oral And capsule Capsul Rehabilita e tion) Vitamin D2 Ergoca 10/20/ complet Vitamin D2 [facility] (ergocalcif lcifer 2019 ed 50,000 unit ([facility] kenny ol 07:58: capsule [facility] (vitamin 04869 14 AM Center fo r d2)) 50,000 UNT EDT Nursing unit Oral And capsule Capsul Rehabilita e tion) Vitamin D2 Ergoca 10/20/ complet Vitamin D2 [facility] (ergocalcif lcifer 2019 ed 50,000 unit ([facility] kenny ol 07:58: capsule [facility] (vitamin 19055 14 AM Center fo r d2)) 50,000 UNT EDT Nursing unit Oral And capsule Capsul Rehabilita e tion) Vitamin D2 Ergoca 10/20/ complet Vitamin D2 [facility] (ergocalcif lcifer 2019 ed 1,250 mcg ( [facility] kenny ol 07:58: (50,000 [facility] (vitamin 12574 14 AM unit) Center f or d2)) 1,250 UNT EDT capsule Nursin g mcg (50,000 Oral And unit) Capsul Rehabilita capsule e tion) Vitamin D2 Ergoca 10/20/ complet Vitamin D2 [facility] (ergocalcif lcifer 2019 ed 50,000 unit ([facility] kenny ol 07:58: capsule [facility] (vitamin 83852 14 AM Center fo r d2)) 50,000 UNT EDT Nursing unit Oral And capsule Capsul Rehabilita e tion) Vitamin D2 Ergoca 10/20/ complet Vitamin D2 [facility] (ergocalcif lcifer 2019 ed 50,000 unit ([facility] kenny ol 07:58: capsule [facility] (vitamin 35023 14 AM Center fo r d2)) 50,000 UNT EDT Nursing unit Oral And capsule Capsul Rehabilita e tion) Vitamin D2 Ergoca 10/20/ complet Vitamin D2 [facility] (ergocalcif lcifer 2019 ed 50,000 unit ([facility] kenny ol 07:58: capsule [facility] (vitamin 81435 14 AM Center fo r d2)) 50,000 UNT EDT Nursing unit Oral And capsule Capsul Rehabilita e tion) quetiapine quetia complet quetiap ine [facility] 50 mg pine 2019 ed 50 mg tablet ([place] tablet 50 MG 07:58: [facility] Oral 14 AM Center for Tablet EDT Nursing And Rehabilita tion) Vitamin D2 Ergoca complet Vitamin D2 [facility] (ergocalcif lcifer 2019 ed 50,000 unit ([facility] kenny ol 07:58: capsule [facility] (vitamin 24668 14 AM Center fo r d2)) 50,000 UNT EDT Nursing unit Oral And capsule Capsul Rehabilita e tion) Tubersol Purifi complet Tubersol 5 [facility] (tuberculin ed 2019 ed tub. ([facility] ppd) 5 tub. Protei 07:43: unit/0.1 mL [facility] unit/0.1 mL n 07 AM intradermal Center for intradermal Deriva EDT injection N ursing injection tive solution And solution of Rehabilita Tuberc tion) ulin 50 UNT/ML Inject able Soluti on [Tuber katarzyna] Tubersol Purifi complet Tubersol 5 SIGMACARE (tuberculin ed 2019 ed tub. (Lynch ppd) 5 tub. Protei 07:43: unit/0.1 mL [place] unit/0.1 mL n 07 AM intradermal Center for intradermal Deriva EDT injection N ursing injection tive solution And solution of Rehabilita Tuberc tion) ulin 50 UNT/ML Inject able Soluti on [Tuber katarzyna] Enema [id number] complet Enema SIGMAC ARE (mineral [id number] 2019 ed ([place]ch oil) 07:41: [place] 55 AM Center for EDT Nursing And Rehabilita tion) Milk of Magnes Milk of SI GMACARE Magnesia iu 2019 ed Magnesia 400 (Freed tton (magnesium Hydrox 07:41: mg/5 mL or al [place] hydroxide) devonte 80 55 AM suspension Center for 400 mg/5 mL MG/ML EDT Nursing oral Oral And suspension Suspen Rehabil maurice sami tion) Milk of Magnes Milk of SI GMACARE Magnesia iu 2019 ed Magnesia 400 ([place] t[place] (magnesium Hydrox 07:41: mg/5 mL or al [place] hydroxide) devonte 80 55 AM suspension Center for 400 mg/5 mL MG/ML EDT Nursing oral Oral And suspension Suspen Rehabil maurice sami tion) Enema [id number] Enema SIGMAC ARE (mineral 2018 ed (Lynch oil) 07:41: [place] 55 AM Center for EDT Nursing And Rehabilita tion) Enema Enema SIGMAC ARE (mineral 2018 ed (Lynch oil) 07:41: [place] 55 AM Center for EDT Nursing And Rehabilita tion) Milk of Magnes Milk of SI GM[facility] Magnesia iu2018 ed Magnesia 400 ([place]reed t[place] (magnesium Hydrox 07:41: mg/5 mL or al [place] hydroxide) devonte 80 55 AM suspension Center for 400 mg/5 mL MG/ML EDT Nursing oral Oral And suspension Suspen Rehabil maurice sami tion) Milk of Magnes Milk of SI [facility]AC[facility] Magnesia iu2018 ed Magnesia 400 ([place]reed t[place] (magnesium Hydrox 07:41: mg/5 mL or al [place] hydroxide) devonte 80 55 AM suspension Center for 400 mg/5 mL MG/ML EDT Nursing oral Oral And suspension Suspen Rehabil maurice sami tion) Enema Enema SIGMAC ARE (mineral 2018 ed (Lynch oil) 07:41: [place] 55 AM Center for EDT Nursing And Rehabilita tion) Enema Enema SIGMAC ARE (mineral 2018 ed ([place] oil) 07:41: [place] 55 AM Center for EDT Nursing And Rehabilita tion) Milk of Magnes Milk of SI GMAC[facility] Magnesia ium 2019 ed Magnesia 400 ([place]reed t[place] (magnesium Hydrox 07:41: mg/5 mL or al [place] hydroxide) devonte 80 55 AM suspension Center for 400 mg/5 mL MG/ML EDT Nursing oral Oral And suspension Suspen Rehabil maurice sami tion) Milk of Magnes Milk of SI GMAC[facility] Magnesia ium 2019 ed Magnesia 400 ([place]reed t[place] (magnesium Hydrox 07:41: mg/5 mL or al [place] hydroxide) devonte 80 55 AM suspension Center for 400 mg/5 mL MG/ML EDT Nursing oral Oral And suspension Suspen Rehabil maurice sami tion) Enema [id number] Enema SIGMAC ARE (mineral [id number] ed (Lynch oil) 07:41: [place] 55 AM Center for EDT Nursing And Rehabilita tion) Milk of Magnes Milk of SI [facility] Magnesia iu 2019 ed Magnesia 400 ([place]reed t[place] (magnesium Hydrox 07:41: mg/5 mL or al [place] hydroxide) devonte 80 55 AM suspension Center for 400 mg/5 mL MG/ML EDT Nursing oral Oral And suspension Suspen Rehabil maurice sami tion) Enema [id number] Enema SIGMAC ARE (mineral 2018 ed (Lynch oil) 07:41: [place] 55 AM Center for EDT Nursing And Rehabilita tion) Enema [id number] Enema SIGMAC ARE (mineral 2018 ed ([place] oil) 07:41: [place] 55 AM Center for EDT Nursing And Rehabilita tion) Milk of Magnes Milk of SI GMAC[facility] Magnesia ium 2019 ed Magnesia 400 ([place]reed t[place] (magnesium Hydrox 07:41: mg/5 mL or al [place] hydroxide) devonte 80 55 AM suspension Center for 400 mg/5 mL MG/ML EDT Nursing oral Oral And suspension Suspen Rehabil maurice sami tion) Milk of Magnes Milk of SI GMAC[facility] Magnesia iu 2019 ed Magnesia 400 ([place] t[place] (magnesium Hydrox 07:41: mg/5 mL or al [place] hydroxide) devonte 80 55 AM suspension Center for 400 mg/5 mL MG/ML EDT Nursing oral Oral And suspension Suspen Rehabil maurice sami tion) Enema [id number] Enema SIGMAC ARE (mineral [id number] ed (Lynch oil) 07:41: [place] 55 AM [facility] for EDT Nursing And Rehabilita tion) Enema [id number] Enema SIGMAC ARE (mineral [id number] ed ([place] oil) 07:41: [place] 55 AM Center for EDT Nursing And Rehabilita tion) Milk of Magnes Milk of SI GM[facility] Magnesia iu 2019 ed Magnesia 400 ([place] t[place] (magnesium Hydrox 07:41: mg/5 mL or al [place] hydroxide) devonte 80 55 AM suspension Center for 400 mg/5 mL MG/ML EDT Nursing oral Oral And suspension Suspen Rehabil maurice sami tion) Aspirin aspirin 81 0 [id number] active aspirin 81 mg oral delayed release capsule Ordered: 11-Jan-2019 [facility] aspirin 81 mg oral Quantity: 0 Radha, [facility] mg oral delayed Refills: 0 System delayed release release capsule capsule Lisinopril 10 lisinopril 10 1 [id number] active Lisinopril [facility] MG Oral Tablet mg oral tablet {tab(s)} Health lisinopril 10 System mg oral tablet Zolpidem Ambien 5 mg 1 [id number] active Ambie n [facility] tartrate 5 MG oral tablet {tab(s)} Health Oral Tablet System [Ambien] Ambien 5 mg oral tablet PARoxetine 40 [id number] 1 [id number] active PARoxetine [facility] mg oral tablet {tab(s)} Hydroc hloride Health System ferrous sulfate ferrous sulfate 0 [id number] active Ferrous Sulfate [facility] 325 MG Oral 325 mg (65 mg Health Tablet ferrous elemental iron) System sulfate 325 mg oral tablet (65 mg elemental iron) oral tablet Hydrochlorothia hydroCHLOROthia 1 [id number] active Hydrochlorothia [facility] zide 12.5 MG zide 12.5 mg {tab(s)} zide Health Oral Tablet oral tablet S ystem hydroCHLOROthia zide 12.5 mg oral tablet atorvastatin 80 atorvastatin 80 1 [id number] active Lipitor [facility] MG Oral Tablet mg oral tablet {tab(s)} Health atorvastatin 80 Syst em mg oral tablet SEROquel 12.5 mg [id number] active S EROquel; 12.5 milligram(s) orally 2 times a day Ordered: 11-Jan-2019 [facility] Quantity: 0 Radha, [facility] Refills: 0 System Insurance Providers Payer name Policy type Policy ID Covered Covered green party's Policy P srinivasa / Coverage green party ID relationship to Espinoza Inf ormation type espinoza MEDICAID OF [id number] 1 [id number] [place] [id number] 1 [id number] PART B [facility] MED[facility] [id number] SP [id number] MEDICARE [id number] SP [id number] Medicare Part Medicare [id number] 1 [id number] Medicare Part Medicare [id number] 1 [id number] B Outpatient Medicaid Medicaid [id number] Healthfirst Medicare [id number] Self [id number] Part A Medicare Part Medicare [id number] Self [id number] A Part A Medicaid Medicaid [id number] Self [id number] Medicare Part Medicare [id number] Self [id number] B Part B Medicare Part Medicare [id number] Self [id number] A Part A Healthfirst Medicare [id number] Self [id number] Part A Medicaid 3 [id number] Self [id number] Medicare Part 2 [id number] Self [id number] B Medicare Part 18 [id number] Self [id number] A Healthfirst 18 [id number] Self [id number] Medicare Part Medicare [id number] 1 [id number] B Outpatient Medicare Part Medicare [id number] 1 [id number] B Outpatient Medicaid Medicaid [id number] Medicare Part Medicare [id number] 1 [id number] B Outpatient Medicaid Medicaid [id number] Self [id number] Medicaid Medicaid [id number] Self [id number] Managed Medicaid 3 [id number] Self [id number] Medicaid 3 [id number] Self [id number] Managed Problems, Conditions, and Diagnoses Code Display Name Description Problem Type Effective Data Dates Source(s) K30 Functional dyspepsia FUNCTIONAL Problem 03/19/2020 MEDG EN (St DYSPEPSIA 12:00:00 AM [facility], ) R10.13 Epigastric pain EPIGASTRIC PAIN Problem 03/19/2020 MEDG EN (St 12:00:00 AM [facility], ) R19.4 Change in bowel CHANGE IN BOWEL Problem 03/19/2020 MEDG EN (St habit HABIT 12:00:00 AM [facility], ) K30 Functional dyspepsia FUNCTIONAL Problem 03/19/2020 MEDG EN (St DYSPEPSIA 12:00:00 AM [facility]) R10.13 Epigastric pain EPIGASTRIC PAIN Problem 03/19/2020 MEDG EN (St 12:00:00 AM [facility]) R19.4 Change in bowel CHANGE IN BOWEL Problem 03/19/2020 MEDG EN (St habit HABIT 12:00:00 AM [facility], ) N39.0 UTI (urinary tract UTI (urinary tract 96578-6 9 [facility] infection) infection) 12:00:00 AM Health System EDT N39.0 UTI (urinary tract UTI (urinary tract 80253-2 9 [facility] infection) infection) 12:00:00 AM [facility] System EDT R52 Pain, unspecified Pain, unspecified Diagnosis 2019 SIGMACARE 12:00:00 AM (Syed Montanez [facility] Z23 Encounter for Encounter for Diagnosis 2019 SIGMACAR E immunization immunization 12:00:00 AM [facility] K59.00 Constipation, Constipation, Diagnosis 05/05/2019 SIGMACAR E unspecified unspecified 12:00:00 AM (Syed mendoza [facility]) R30.0 Dysuria Dysuria Diagnosis 04/28/2019 SIGMACARE 12:00:00 AM (Syed Montanez [facility] N39.0 Urinary tract UTI (urinary tract Diagnosis 04/14/2019 [facility] infection, site not infection) 03:41:00 AM César on specified T Hospital F03.90 Unspecified dementia Dementia without Diagnosis 9 [facility] [place] without behavioral behavioral 03:41:00 AM Vern[place] n disturbance disturbance T [facility] R45.1 Restlessness and Restlessness and Diagnosis 04/14/2019 [facility] agitation agitation 03:41:00 AM [facility] PSYCH EVAL PSYCH EVAL Diagnosis 04/14/2019 [facility] [place] 03:41:00 AM [facility] F32.9 Major depressive Major depressive Diagnosis 04/14/2019 [facility] disorder, single disorder with 03:41:00 AM César on episode, unspecified single episode T [facility] I10 Essential (primary) Essential Diagnosis 04/14/2019 [facility] hypertension hypertension 03:41:00 AM [facility] L20.9 Atopic dermatitis, Atopic dermatitis, Diagnosis 9 [facility]ARE unspecified unspecified 12:00:00 AM (Syed mendoza [facility]) M19.90 Unspecified Osteoarthritis Diagnosis 01/25/2019 [facility] nt osteoarthritis, 01:27:00 PM [facility] E11.9 Type 2 diabetes Type 2 diabetes Diagnosis 01/25/2019 [facility] mellitus without mellitus without 01:27:00 PM V ernon complications complication T [facility] SUICIDAL SUICIDAL Diagnosis 01/25/2019 [facility] 01:27:00 PM [facility] Z86.73 Personal history of History of TIA Diagnosis 01/25/2019 [facility] transient ischemic (transient ischemic 01:27:00 PM [place] attack (TIA), and attack) and stroke EDT Hospital cerebral infarction without residual deficits E78.5 Hyperlipidemia, Hyperlipidemia Diagnosis 01/25/2019 [facility] unspecified 01:27:00 PM [facility] F43.20 Adjustment disorder, Adjustment disorder Diagnosis 2018 [facility] unspecified 01:27:00 PM [facility] K29.60 Other gastritis Other gastritis Diagnosis 01/11/2019 [facility] without bleeding without hemorrhage 09:23:00 AM [facility] GASTRO GASTRO Diagnosis 01/11/2019 [facility] 09:23:00 AM [facility] [id number] Upper Upper Diagnosis 01/11/2019 [facility] gastrointestinal gastrointestinal 09:23:[address] [facility]oscopy endoscopy [facility] Hospital K44.9 Diaphragmatic hernia Diaphragmatic Diagnosis 01/11/2019 [facility] without obstruction hernia without 09:23:00 AM [place] or gangrene obstruction and [facility] Hospital without gangrene K44.9 Diaphragmatic hernia Diaphragmatic Diagnosis 01/11/2019 S [facility] without obstruction hernia without 12:00:00 AM (Syed Montanez or gangrene obstruction or EDT Center fo r gangrene Nursing And Rehabilitatio n) K29.00 Acute gastritis Acute gastritis Diagnosis 01/11/2019 SIGM ACARE without bleeding without bleeding 12:00:00 AM ( Syed Montanez [facility]) ABD PAIN/ REF FROM ABD PAIN/ REF FROM Diagnosis 9 [facility] CLINIC CLINIC 01:26:00 PM [facility] ABD PAIN/CLINIC ABD PAIN/CLINIC Diagnosis 12/07/2018 [facility] 01:26:00 PM [facility] N39.0 Urinary tract Urinary tract Diagnosis 12/07/2018 S - Ne w infection, site not infection 01:26:00 PM [facility] R10.9 Unspecified Abdominal pain Diagnosis 12/07/2018 [facility] abdominal pain 01:26:00 PM [facility] N39.0 Urinary tract Urinary tract Diagnosis 12/07/2018 SIGMACAR E infection, site not infection, site not 12:00:0 0 AM ([facility] specified specified [facility] Nursing And Rehabilitatio n) Z79.2 retirement (current) retirement (current) Diagnosis 019 SIGMACARE use of antibiotics use of antibiotics 12:00:00 AM ([facility] n) R10.10 Upper abdominal Upper abdominal Diagnosis 12/06/2018 [facility] pain, unspecified pain, unspecified 12:00:00 AM ([facility]) E87.6 Hypokalemia Hypokalemia Diagnosis 12/04/2018 [facility] 12:00:00 AM ([facility]) G89.29 Other chronic pain Other chronic pain Diagnosis 9 [facility]MACARE 12:00:00 AM ([facility]) R12 Heartburn Heartburn Diagnosis 12/03/2018 [facility] 12:00:00 AM ([facility]) W19.XXXA Unspecified fall, Unspecified fall, Diagnosis 11/30/2018 [facility] initial encounter initial encounter 12:00:00 AM ([facility]) G30.9 Alzheimer's disease, Alzheimer's Diagnosis 11/10/2018 SIG MAC[facility] unspecified disease, 12:00:00 AM ([facility] unspecified [facility]) D50.9 Iron deficiency Iron deficiency Diagnosis 10/25/2018 [facility] anemia, unspecified anemia, unspecified 12:00:0 0 AM ([facility] for Nursing And Rehabilitatio n) Z41.8 Encounter for other Encntr for oth proc Diagnosis SIGMACARE procedures for for purpose oth 12:00:00 AM ([facility] purposes other than than remedy health [place] for remedying health state Nursing And state Rehabilitatio n) I10 Essential (primary) Essential (primary) Diagnosis SIG[facility]ARE hypertension hypertension 12:00:00 AM (Syed teek [facility]) D51.9 Vitamin B12 Vitamin B12 Diagnosis 10/20/2018 SIG[facility]ARE deficiency anemia, deficiency anemia, 12:00:00 AM ([facility] unspecified unspecified [facility]) N95.2 Postmenopausal Postmenopausal Diagnosis 10/20/2018 SIGMAC ARE atrophic vaginitis atrophic vaginitis 12:00:00 AM ([facility] for Nursing And Rehabilitatio n) E55.9 Vitamin D Vitamin D Diagnosis 10/20/2018 SIGMACARE deficiency, deficiency, 12:00:00 AM ([facility] unspecified unspecified [facility]) G47.00 Insomnia, Insomnia, Diagnosis 10/20/2018 SIGMACARE unspecified unspecified 12:00:00 AM ([facility] for Nursing And Rehabilitatio n) F20.89 Other schizophrenia Other schizophrenia Diagnosis 019 SIGMACARE 12:00:00 AM ([facility] for Nursing And Rehabilitatio n) Z11.1 Encounter for Encounter for Diagnosis 10/20/2018 SIGMACAR E screening for screening for 12:00:00 AM ([facility] respiratory respiratory EDT Center for tuberculosis tuberculosis Nursing An d Rehabilitatio n) K59.09 Other constipation Other constipation Diagnosis 9 SIGMACARE 12:00:00 AM (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 12:00:00 AM (S debby Montanez disorder EDT Center for Nursing And Rehabilitatio n) F32.9 Major depressive Major depressive Diagnosis 10/20/2018 [facility] disorder, single disorder, single 12:00:00 AM ( Syed Montanez episode, unspecified episode, EDT Cent er for unspecified Nursing And Rehabilitatio n) K40.90 Unilateral inguinal Unil inguinal Diagnosis 10/20/2018 [facility] hernia, without hernia, w/o obst or 12:00:00 AM (Syed Montanez obstruction or gangr, not spcf as EDT Ce nter for gangrene, not recur Nursing And specified as Rehabilitati o recurrent n) M19.90 Unspecified Unspecified Diagnosis 10/20/2018 [facility] osteoarthritis, osteoarthritis, 12:00:00 AM (Freed terry Lisseth unspecified site unspecified site EDT Ce nter for Nursing And Rehabilitatio n) Z86.73 Personal history of Prsnl hx of TIA Diagnosis 10/20/2018 [facility] transient ischemic (TIA), and cereb 12:00:00 AM (Syed Montanez attack (TIA), and infrc w/o resid EDT Ce nter for cerebral infarction deficits Nursi ng And without residual Rehabili tatio deficits n) E78.5 Hyperlipidemia, Hyperlipidemia, Diagnosis 10/20/2018 [facility] unspecified unspecified 12:00:00 AM (Syed Par k EDT Center for Nursing And Rehabilitatio n) E11.9 Type 2 diabetes Type 2 diabetes Diagnosis 10/20/2018 [facility] mellitus without mellitus without 12:00:00 AM ( Syed Montanez complications complications EDT Center f or Nursing And Rehabilitatio n) I27.20 Pulmonary Pulmonary Diagnosis 10/20/2018 [facility] hypertension, hypertension, 12:00:00 AM (Syed Montanez unspecified unspecified EDT Center for Nursing And Rehabilitatio n) F02.80 Dementia in other Dementia in oth Diagnosis 10/20/2018 [facility] diseases classified diseases classd 12:00:00 AM (Syed Montanez elsewhere without elswhr w/o behavrl EDT Center for behavioral disturb Nursing And disturbance Rehabilitatio n) K29.70 Gastritis, Gastritis, Diagnosis 10/20/2018 [facility] unspecified, without unspecified, 12:00:00 AM ( Syed Montanez bleeding without bleeding EDT Center f or Nursing And Rehabilitatio n) Z87.440 Personal history of Personal history of Diagnosis 019 SIGMACARE urinary (tract) urinary (tract) 12:00:00 AM ([place] stewart Lisseth infections infections EDT Center for Nursing And Rehabilitatio n) Surgeries/Procedures Procedure Description Date Indications Data Source(s) Documentation of current 03/19/2020 MED GEN (Baltazar's medications (procedure) 12:00:00 AM [facility] ) EDT Documentation of current 03/19/2020 MED GEN (Baltazar's medications (procedure) 12:00:00 AM [facility] ) EDT OFFICE CONSULTATION NEW/ESTAB 03/19/2020 MEDGEN ([facility] PATIENT 40 MIN 12:00:00 AM [facility], ) EDT Documentation of current 03/19/2020 MED GEN (Baltazar's medications (procedure) 12:00:00 AM [facility] ) EDT OFFICE CONSULTATION NEW/ESTAB 03/19/2020 MEDGEN ([facility] PATIENT 40 MIN 12:00:00 AM [facility], ) EDT Electrocardiographic 01/25/2019 [facility] procedure (procedure) 02:32:57 PM System EDT - 01/25/2019 02:50:00 PM EDT Tissue Exam 01/11/2019 [facility] 11:17:00 AM System EDT - 01/11/2019 11:17:00 AM EDT XR Chest Single AP view XR 12/07/2018 [facility] Chest Single AP view 02:57:00 PM System EDT - 12/07/2018 02:57:00 PM EDT Computed tomography of 12/07/2018 [facility] abdomen (procedure) 02:24:00 PM System EDT - 12/07/2018 02:24:00 PM EDT Electrocardiographic 12/07/2018 [facility] procedure (procedure) 01:46:56 PM System EDT - 12/07/2018 01:59:00 PM EDT Results ID Date Data Source [id number] 01/30/2020 12:00:00 AM EDT [facility] Name Value Range Interpretation Code Description Data Elsie rce(s) Supporting Document(s ) SARS-CoV-2 [facility] RNA Resp Ql LUPILLO+probe This lab was ordered by [facility] and reported by [facility]. ID Date Data Source [id number] 12/07/2018 01:46:00 PM EDT [facility] Name Value Range Interpretation Description Data Sup porting Code Source(s) Document(s ) Deprecated Micro Result Normal (applies Aerobic [facility] Bacteria to non-numeric Culture, Health identified in results) Urine System Urine by Aerobe culture XXX Coagulase-negat Organism [facility] microorganism melchor Health serotype Staphylococcus System [Identifier] species in Isolate by Agglutination ColonyCount > 100,000 [place] Count [facility] CFU/ML Health System ID Date Data Source [id number] 12/07/2018 02:57:00 PM EDT [facility] Name Value Range Interpretation Description Data Sup porting Code Source(s) Document(s ) D Ab [Titer] in Negative Normal (applies Rh [facility] Serum or Plasma to non-numeric Health results) System Type O Normal (applies Type [facility] to non-numeric Health results) System AntibodyScreen Negative Normal (applies Antibody [facility] to non-numeric Screen Health results) System new pt ID Date Data Source [id number] 12/07/2018 02:57:00 PM EDT [facility] Name Value Range Interpretation Description Data Sup porting Code Source(s) Document(s ) Poikilocytosis Slight Normal (applies Poikilocytosis [facility] [Presence] in to non-numeric Health Blood by results) System Automated count Anisocytosis Slight Normal (applies Anisocytosis [facility] [Presence] in to non-numeric Health Blood by results) System Automated count Lymphocyte%. 35 % Normal (applies Lymphocyte %. [facility] to non-numeric Health results) System Polys 58 % Normal (applies Polys [facility] to non-numeric Health results) System Monocyte%. 6 % Normal (applies Monocyte %. [facility] to non-numeric Health results) System Platelets Adequate Normal (applies Platelet Count [facility] [#/volume] in to non-numeric Estimate Health Blood by results) System Estimate BURRCells/Echino Few Normal (applies REBECA Cells/ Parrish liam cytes to non-numeric Echinocytes Health results) System Variant 1 % Normal (applies Atypical [facility] lymphocytes to non-numeric Lymphocyte Health [Presence] in results) Count System Blood by Automated count OVAL Few Normal (applies OVAL [facility] to non-numeric Health results) System ID Date Data Source [id number] 12/07/2018 02:57:00 PM EDT [facility] Name Value Range Interpretation Description Data Sup porting Code Source(s) Document(s ) Leukocytes 11.6 Above high WBC Count [facility] [#/volume] in {10^3_uL normal Health Unspecified } System specimen by Automated count Hematocrit 35.8 % Below low normal Hematocrit [facility] [Volume Health Fraction] of System Blood Erythrocyte mean 82.3 fl Normal (applies MCV [facility] corpuscular to non-numeric Health volume [Entitic results) System volume] by Automated count Hemoglobin 11.6 Below low normal Hemoglobin [facility] [Mass/volume] in {gm/dL} Health Blood System Erythrocytes 4.35 Normal (applies RBC Count [facility] [#/volume] in {10^6_uL to non-numeric Health Blood by } results) System Automated count Erythrocyte mean 26.7 pg Below low normal MCH [facility] corpuscular Health hemoglobin System [Entitic mass] by Automated count Platelets 223 Normal (applies Platelet Count [facility] [#/volume] in {10^3_uL to non-numeric Health Plasma by } results) System Automated count Erythrocyte 13.2 % Normal (applies RDW-CV [facility] distribution to non-numeric Health width [Entitic results) System volume] by Automated count Erythrocyte mean 32.4 Normal (applies MCHC [facility] corpuscular {gm/dL} to non-numeric Health hemoglobin results) System concentration [Mass/volume] by Automated count Platelet mean 9.8 fl Normal (applies MPV [facility] volume [Entitic to non-numeric Health volume] in Blood results) System by Automated count NRBC# 0.00 Normal (applies NRBC # [facility] {10^3_uL to non-numeric Health } results) System Neutrophils/100 40.8 % Below low normal Neutrophil % [facility] leukocytes in Health Blood by System Automated count Nucleated 0.0 Normal (applies NRBC % [facility] erythrocytes {/100_WB to non-numeric Health [#/volume] in C} results) System Body fluid Neutrophils 4.8 Normal (applies Neutrophil # [facility] [#/volume] in {10^3_uL to non-numeric Health Body fluid } results) System Monocytes/100 7.0 % Normal (applies Monocyte % [facility] leukocytes in to non-numeric Health Blood results) System Lymphocyte 6.0 Above high Lymphocyte # [facility] percent {10^3_uL normal Health differential } System count (procedure) Lymphocytes 51.2 % Above high Lymphocyte % [facility] [#/volume] in normal Health Blood by System Automated count Eosinophils/100 0.5 % Normal (applies Eosinophil % [facility] leukocytes in to non-numeric Health Unspecified results) System specimen Monocytes 0.8 Normal (applies Monocyte # [facility] [#/volume] in {10^3_uL to non-numeric Health Blood by Manual } results) System count Basophils 0.04 Normal (applies Basophil # [facility] [#/volume] in {10^3_uL to non-numeric Health Blood by } results) System Automated count ImmatureGranuloc 0.02 Normal (applies Immature [facility] ytes# {10^3_uL to non-numeric Granulocytes # Health } results) System Eosinophils 0.06 Normal (applies Eosinophil # [facility] [#/volume] in {10^3_uL to non-numeric Health Blood } results) System Basophils/100 0.3 % Normal (applies Basophil % [facility] leukocytes in to non-numeric Health Unspecified results) System specimen by Manual count ImmatureGranuloc 0.2 % Normal (applies Immature [facility] ytes% to non-numeric Granulocytes % Health results) System ID Date Data Source [id number] 12/07/2018 02:57:00 PM EDT [facility] System Name Value Range Interpretation Description Data Sup porting Code Source(s) Document(s ) Potassium 3.0 Below low normal Potassium, [facility] [Mass/volume] in mmol/L Serum Health Serum or Plasma System Sodium 139 Normal (applies Sodium, Serum [facility] [Moles/volume] in mmol/L to non-numeric Health Serum or Plasma results) System Carbon dioxide, 23.2 Normal (applies CO2, Serum [facility] total mmol/L to non-numeric Health [Moles/volume] in results) System Serum or Plasma Chloride 105 Normal (applies Chloride, [facility] [Moles/volume] in mmol/L to non-numeric Serum Health Serum or Plasma results) System Glucose 88 Normal (applies Glucose, [facility] [Mass/volume] in mg/dL to non-numeric Serum Health Serum or Plasma results) System TotalProtein 6.8 Normal (applies Total Protein [facility] mg/dl to non-numeric Health results) System Alkaline 54 Normal (applies Alkaline [facility] phosphatase {IU/L} to non-numeric Phosphatase, Health isoenzymes results) Serum System [Enzymatic activity/volume] in Serum or Plasma by Heat stability Creatinine 1.19 Normal (applies Creatinine, [facility] [Mass/volume] in mg/dl to non-numeric Serum Health Serum or Plasma results) System Urea nitrogen 27 Above high Blood Urea [facility] [Mass/volume] in mg/dl normal Nitrogen, Health Serum or Plasma Serum System Bilirubin.total 0.9 Normal (applies Bilirubin, [facility] [Mass/volume] in mg/dl to non-numeric Serum Total Health Serum or Plasma results) System Albumin 4.2 Normal (applies Albumin, [facility] [Mass/volume] in {gm/dl} to non-numeric Serum Health Serum or Plasma results) System DirectBilirubin 0.2 Normal (applies Direct [facility] mg/dl to non-numeric Bilirubin Health results) System Aspartate 15 Normal (applies Aspartate [facility] aminotransferase {IU/L} to non-numeric Transaminase, Heal th [Enzymatic results) Serum System activity/volume] in Serum or Plasma by With P-5'-P Calcium 10.0 Normal (applies Calcium, [facility] [Mass/volume] in mg/dl to non-numeric Total Serum Health Serum or Plasma results) System I.Phosphorus 1.8 Below low normal I. Phosphorus [facility] mg/dl [facility] System Alanine 13 Normal (applies Alanine [facility] aminotransferase {IU/L} to non-numeric Aminotransfer Heal th [Enzymatic results) ase, Serum System activity/volume] in Serum or Plasma Glomerular 44.39 Normal (applies GFR [facility] filtration to non-numeric Health rate/1.73 sq results) System M.predicted [Volume Rate/Area] in Serum or Plasma by Creatinine-based formula (CKD-EPI) eGFR will provide clinicians with a more accurate indicator of renal function then the serum creatinine. The eGFR is automa tically calculated from an empiric formula (endorsed by the National [employer] ion) which incorporates age, sex, and race.Clinicians may notice surprisingly low GFR's with serum creatinine valueswithin normal range- particularly in elderly wo men (with low muscle mass).In the hospital setting, the eGFR should add an element of safety in drug dosing, in assessing the risk of IV contrast administration, and in assessing vascular risk.The NKF staging system is as follows:Normal: eGFR >90 with no kidney markersStage 1: eGFR >90 with kidney markers*Stage 2: eGFR 60- 89Stage 3: eGFR 30-59Stage 4: eGFR 15-29Stage 5: eGFR <15 (usually requir ing dialysis)*Markers include: Proteinuria, Hematuria, abnormal imaging-studies, or other blood or urine test abnormalities Urate [Mass/volume] 7.0 mg/dl Normal (applies to Uric Acid, [facility] in Serum or Plasma non-numeric Serum System results) A/GRatio 1.62 Normal (applies to A/G Ratio reBounces non-numeric System results) Anion gap in Serum or 10.80 mmol/L Normal (applies to Anio n Gap reBounces Plasma non-numeric System results) ID Date Data Source [id number] 12/07/2018 02:57:00 PM EDT [facility] System Name Value Range Interpretation Description Data Sup porting Code Source(s) Document(s ) Prothrombintim 12.20 Normal (applies Prothrombin [facility](PT) {seconds to non-numeric time (PT) Health System } results) INR in Blood 1.07 Normal (applies INR Result [facility] by Coagulation {Ratio} to non-numeric Health Sys tem assay results) Normal = 0.7-1.1Therapeutic = 2.0-3.0Mec hanical Heart = 3.0-4.5 ID Date Data Source [id number] 12/07/2018 02:57:00 PM EDT [facility] System Name Value Range Interpretation Description Data Sup porting Code Source(s) Document(s ) aPTT in Blood 30.3 Normal (applies Activated [facility] by Coagulation {Seconds to non-numeric Partial Health assay } results) Thromboplastin System Time ID Date Data Source [id number] 12/07/2018 03:01:00 PM EDT [facility] System Name Value Range Interpretation Description Data Sup porting Code Source(s) Document(s ) Appearance of HAZY Normal (applies Urine [facility] Urine to non-numeric Appearance Health results) System Specific gravity 1.019 Normal (applies Urine Specific [facility] of Urine to non-numeric [facility] results) System Color Yellow Normal (applies Color [facility] to non-numeric Health results) System Protein NEG Normal (applies Protein [facility] [Mass/volume] in to non-numeric Health Serum or Plasma results) System pH.. 7.0 Normal (applies pH.. [facility] {pH_unit to non-numeric Health s} results) System Glucose,UA NEG Normal (applies Glucose, UA [facility] to non-numeric Health results) System BilirubinUrine NEG Normal (applies Bilirubin [facility] to non-numeric Urine Health results) System Ketones NEG Normal (applies Ketones UA [facility] [Mass/volume] in to non-numeric Health Urine results) System Urobilinogen < 2.0 Normal (applies Urobilinogen [facility] [Mass/volume] in to non-numeric UA Health Urine results) System Reference Range: Negative or <=2.0 Leukocytes 77 {/HPF} Normal (applies White Blood Cells [facility] [#/volume] in to non-numeric Health Syst em Unspecified results) specimen by Automated count Nitrate+Nitrite Positive Abnormal (applies Nitrite [facility] [Mass/volume] in to non-numeric Health S ystem Unspecified results) specimen Leukocyte esterase Moderate Abnormal (applies Leukocyte Est erase [facility] [Units/volume] in to non-numeric Concentration Hea lt System Urine results) Epithelial cells 5 {/HPF} Normal (applies Epithelial Cells [facility] [Presence] in to non-numeric Health Syst em Unspecified results) specimen by Wet preparation RedBloodCells 24 {/HPF} Normal (applies Red Blood Cells [facility] to non-numeric Health System results) UrineBlood SM(1+) Abnormal (applies Urine Blood [facility] to non-numeric Health System results) Bacteria [Presence] FEW Normal (applies Bacteria [facility] in Unspecified to non-numeric Health Sys tem specimen results) Mucus MOD Normal (applies Mucus [facility] to non-numeric Health System results) ID Date Data Source [id number] 01/11/2019 11:17:00 AM EDFunmi [facility] System Name Value Range Interpretation Description Data Sup porting Code Source(s) Document(s ) TissueExam Results for case # Normal (applies Tissue Exam [facility] [id number] to non-numeric Health SURGICAL PATHOLOGY results) System REPORTCLINICAL INFORMATION: Abdominal pain. PREOPERATIVE DIAGNOSIS: Same.POSTOPERATIVE DIAGNOSIS: Gastritis, hiatal hernia.FINAL DIAGNOSIS: Stomach, biopsy:Gastric antral and fundic/body type mucosa with no diagnostic abnormality.Negati ve for Helicobacter pylori on Giemsa stain.BANDAR/Lucio DOZIER MDElectronically Signed By: GROSS DESCRIPTION: In formalin, labeled "gastric biopsy", the specimen consists of 3 fragments of yo-pink soft tissue averaging 0.3cm in greatest dimension. The specimen is submitted in toto in one cassette.DJ/stPage 1 of 1 ID Date Data Source [id number] 01/25/2019 02:30:00 PM EDT [facility] System Name Value Range Interpretation Description Data Sup porting Code Source(s) Document(s ) Amphetamine Negative Normal (applies Amphetamine [facility] [Mass/volume] to non-numeric Level, Urine Health in Urine results) System Cut-off = 1000 ng/mL Barbiturates Negative Normal (applies to Barbiturate [facility] [Mass/volume] in non-numeric Screen, Urine Health System Urine by Screen results) method Cut-off = 200 ng/mL Methadone Negative Normal (applies to Methadone Level, [facility] [Mass/volume] in non-numeric Urine System Urine results) Cut-off = 300 ng/mL Cocaine Negative Normal (applies Cocaine [facility] metabolites.other to non-numeric Metabolite Health System [Mass/volume] in Urine results) Screen, Urine Cut-off = 300 ng/mL Benzodiazepines Negative Normal (applies Benzodiazepines, [facility] [Mass/volume] in to non-numeric Urine Health S ystem Urine results) Cut-off = 200 ng/mL [id number],Urine Negative Normal (applies to Opiate 300, [facility] non-numeric results) Urine System Cut-off = 300 ng/mL Phencyclidine Negative Normal (applies Phencyclidine, Urine [facility] [Mass/volume] in to non-numeric Health S ystem Urine results) Cut-off = 25 ng/mL Cannabinoid(THC) Negative Normal (applies to Cannabinoid (THC) [facility] non-numeric System results) Cutt-off = 50These results are for medic al treatment only. The positive findings are unconfirmed. Request confirmatory/quanti tative test if needed. ID Date Data Source [id number] 01/25/2019 02:30:00 PM EDT [facility] System Name Value Range Interpretation Description Data Sup porting Code Source(s) Document(s ) Color YELLOW Normal (applies Color [facility] to non-numeric Health results) System Appearance of CLEAR Normal (applies Urine [facility] Urine to non-numeric Appearance Health results) System Specific gravity 1.015 Normal (applies Urine Specific [facility] of Urine to non-numeric [facility] results) System pH.. 6.5 Normal (applies pH.. [facility] {pH_units} to non-numeric Health results) System Protein NEGATIVE Normal (applies Protein [facility] [Mass/volume] in to non-numeric Health Serum or Plasma results) System Glucose,UA NEGATIVE Normal (applies Glucose, UA [facility] to non-numeric Health results) System BilirubinUrine NEGATIVE Normal (applies Bilirubin [facility] to non-numeric Urine Health results) System Ketones NEGATIVE Normal (applies Ketones UA [facility] [Mass/volume] in to non-numeric Health Urine results) System Urobilinogen 0.2 mg/dL Normal (applies Urobilinogen [facility] [Mass/volume] in to non-numeric UA Health Urine results) System Leukocyte SMALL Abnormal Leukocyte [facility] esterase (applies to Esterase Health [Units/volume] non-numeric Concentration System in Urine results) Nitrate+Nitrite NEGATIVE Normal (applies Nitrite [facility] [Mass/volume] in to non-numeric Health Unspecified results) System specimen Epithelial cells 5 {/HPF} Normal (applies Epithelial [facility] [Presence] in to non-numeric Cells Health Unspecified results) System specimen by Wet preparation Leukocytes 8 {/HPF} Normal (applies White Blood [facility] [#/volume] in to non-numeric Cells Health Unspecified results) System specimen by Automated count RedBloodCells 4 {/HPF} Normal (applies Red Blood [facility] to non-numeric Cells Health results) System UrineBlood NEGATIVE Normal (applies Urine Blood [facility] to non-numeric Health results) System Bacteria 1+ Abnormal Bacteria [facility] [Presence] in (applies to Health Unspecified non-numeric System specimen results) ID Date Data Source [id number] 01/25/2019 02:30:00 PM EDT [facility] System Name Value Range Interpretation Description Data Sup porting Code Source(s) Document(s ) Leukocytes 8.3 Normal (applies WBC Count [facility] [#/volume] in {10^3_uL to non-numeric Health Unspecified } results) System specimen by Automated count Erythrocytes 4.63 Normal (applies RBC Count [facility] [#/volume] in {10^6_uL to non-numeric Health Blood by } results) System Automated count Hemoglobin 12.3 Normal (applies Hemoglobin [facility] [Mass/volume] in {gm/dL} to non-numeric Health Blood results) System Erythrocyte mean 85.5 fl Normal (applies MCV [facility] corpuscular to non-numeric Health volume [Entitic results) System volume] by Automated count Hematocrit 39.6 % Normal (applies Hematocrit [facility] [Volume to non-numeric Health Fraction] of results) System Blood Erythrocyte mean 26.6 pg Normal (applies MCH [facility] corpuscular to non-numeric Health hemoglobin results) System [Entitic mass] by Automated count Erythrocyte mean 31.1 Below low normal MCHC [facility] corpuscular {gm/dL} Health hemoglobin System concentration [Mass/volume] by Automated count Erythrocyte 13.3 % Normal (applies RDW-CV [facility] distribution to non-numeric Health width [Entitic results) System volume] by Automated count Platelet mean 9.4 fl Normal (applies MPV [facility] volume [Entitic to non-numeric Health volume] in Blood results) System by Automated count Platelets 238 Normal (applies Platelet Count [facility] [#/volume] in {10^3_uL to non-numeric Health Plasma by } results) System Automated count Monocytes 0.6 Normal (applies Monocyte # [facility] [#/volume] in {10^3_uL to non-numeric Health Blood by Manual } results) System count Eosinophils 0.10 Normal (applies Eosinophil # [facility] [#/volume] in {10^3_uL to non-numeric Health Blood } results) System Neutrophils 3.3 Normal (applies Neutrophil # [facility] [#/volume] in {10^3_uL to non-numeric Health Body fluid } results) System Basophils 0.03 Normal (applies Basophil # [facility] [#/volume] in {10^3_uL to non-numeric Health Blood by } results) System Automated count Monocytes/100 7.6 % Normal (applies Monocyte % [facility] leukocytes in to non-numeric Health Blood results) System Neutrophils/100 39.6 % Below low normal Neutrophil % [facility] leukocytes in Health Blood by System Automated count Lymphocyte 4.2 Normal (applies Lymphocyte # [facility] percent {10^3_uL to non-numeric Health differential } results) System count (procedure) Basophils/100 0.4 % Normal (applies Basophil % [facility] leukocytes in to non-numeric Health Unspecified results) System specimen by Manual count Eosinophils/100 1.2 % Normal (applies Eosinophil % [facility] leukocytes in to non-numeric Health Unspecified results) System specimen Nucleated 0.0 Normal (applies NRBC % [facility] erythrocytes {/100_WB to non-numeric Health [#/volume] in C} results) System Body fluid Lymphocytes 51.0 % Normal (applies Lymphocyte % [facility] [#/volume] in to non-numeric Health Blood by results) System Automated count ImmatureGranuloc 0.2 % Normal (applies Immature [facility] ytes% to non-numeric Granulocytes % Health results) System ImmatureGranuloc 0.02 Normal (applies Immature [facility] ytes# {10^3_uL to non-numeric Granulocytes # Health } results) System NRBC# 0.00 Below low normal NRBC # [facility] {10^3_uL Health } System ID Date Data Source [id number] 01/25/2019 02:30:00 PM EDT [facility] System Name Value Range Interpretation Description Data Sup porting Code Source(s) Document(s ) AlcoholE NOT DETECTED Normal (applies to Alcohol Ethyl, [facility] thyl,Blo None non-numeric Blood Health System od Detected results) ID Date Data Source [id number] 01/25/2019 02:30:00 PM EDT [facility] System Name Value Range Interpretation Description Data Sup porting Code Source(s) Document(s ) Sodium 142 Normal (applies Sodium, Serum [facility] [Moles/volume] in mmol/L to non-numeric Health Serum or Plasma results) System Potassium 3.6 Normal (applies Potassium, [facility] [Mass/volume] in mmol/L to non-numeric Serum Health Serum or Plasma results) System TotalProtein 7.6 Normal (applies Total Protein [facility] mg/dl to non-numeric Health results) System Chloride 107 Normal (applies Chloride, [facility] [Moles/volume] in mmol/L to non-numeric Serum Health Serum or Plasma results) System Carbon dioxide, 23.0 Normal (applies CO2, Serum [facility] total mmol/L to non-numeric Health [Moles/volume] in results) System Serum or Plasma Urea nitrogen 19 Above high Blood Urea [facility] [Mass/volume] in mg/dl normal Nitrogen, Health Serum or Plasma Serum System Glucose 115 Above high Glucose, [facility] [Mass/volume] in mg/dL normal Serum Health Serum or Plasma System Creatinine 1.20 Normal (applies Creatinine, [facility] [Mass/volume] in mg/dl to non-numeric Serum Health Serum or Plasma results) System Alkaline 85 Normal (applies Alkaline [facility] phosphatase {IU/L} to non-numeric Phosphatase, Health isoenzymes results) Serum System [Enzymatic activity/volume] in Serum or Plasma by Heat stability DirectBilirubin 0.2 Normal (applies Direct [facility] mg/dl to non-numeric Bilirubin Health results) System Bilirubin direct 0.5 Normal (applies Bilirubin, [facility] and total panel mg/dl to non-numeric Serum Total Health [Mass/volume] - results) System Serum or Plasma Aspartate 16 Normal (applies Aspartate [facility] aminotransferase {IU/L} to non-numeric Transaminase, Heal th [Enzymatic results) Serum System activity/volume] in Serum or Plasma by With P-5'-P Albumin 4.5 Normal (applies Albumin, [facility] [Mass/volume] in {gm/dl} to non-numeric Serum Health Serum or Plasma results) System I.Phosphorus 2.3 Below low normal I. Phosphorus [facility] mg/dl Health System Alanine 9 Normal (applies Alanine [facility] aminotransferase {IU/L} to non-numeric Aminotransfer Heal th [Enzymatic results) ase, Serum System activity/volume] in Serum or Plasma Calcium 10.0 Normal (applies Calcium, [facility] [Mass/volume] in mg/dl to non-numeric Total Serum Health Serum or Plasma results) System A/GRatio 1.45 Normal (applies A/G Ratio [facility] to non-numeric Health results) System Urate 8.2 Above high Uric Acid, [facility] [Mass/volume] in mg/dl normal Serum Health Serum or Plasma System Anion gap in Serum 12.00 Normal (applies Anion Gap [facility] or Plasma mmol/L to non-numeric Health results) System Glomerular 43.94 Normal (applies GFR [facility] filtration to non-numeric Health rate/1.73 sq results) System M.predicted [Volume Rate/Area] in Serum or Plasma by Creatinine-based formula (CKD-EPI) eGFR will provide clinicians with a more accurate indicator of renal function then the serum creatinine. The eGFR is automa tically calculated from an empiric formula (endorsed by the National Kidney [employer] ion) which incorporates age, sex, and race.Clinicians may notice surprisingly low GFR's with serum creatinine valueswithin normal range- particularly in elderly wo men (with low muscle mass).In the hospital setting, the eGFR should add an element of safety in drug dosing, in assessing the risk of IV contrast administration, and in assessing vascular risk.The NKF staging system is as follows:Normal: eGFR >90 with no kidney markersStage 1: eGFR >90 with kidney markers*Stage 2: eGFR 60- 89Stage 3: eGFR 30-59Stage 4: eGFR 15-29Stage 5: eGFR <15 (usually requir ing dialysis)*Markers include: Proteinuria, Hematuria, abnormal imaging-studies, or other blood or urine test abnormalities ID Date Data Source [id number] 01/25/2019 02:30:00 PM EDT [facility] System Name Value Range Interpretation Description Data Source(s ) Supporting Code Document(s ) Troponin 0.00 Normal (applies to Troponin I [facility] IQuantit ng/mL non-numeric Quantitative - Health System ative-MV results) MV Only Only ID Date Data Source [id number] 04/15/2019 11:54:08 AM EDFunmi [facility] System Name Value Range Interpretation Description Data Sup porting Code Source(s) Document(s ) Leukocytes 11.0 Above high WBC Count [facility] [#/volume] in {10^3_uL normal Health Unspecified } System specimen by Automated count Erythrocytes 4.20 Normal (applies RBC Count [facility] [#/volume] in {10^6_uL to non-numeric Health Blood by } results) System Automated count Hematocrit 36.0 % Normal (applies Hematocrit [facility] [Volume to non-numeric Health Fraction] of results) System Blood Hemoglobin 11.3 Below low normal Hemoglobin [facility] [Mass/volume] in {gm/dL} Health Blood System Erythrocyte mean 26.9 pg Normal (applies MCH [facility] corpuscular to non-numeric Health hemoglobin results) System [Entitic mass] by Automated count Erythrocyte mean 31.4 Below low normal [facility] corpuscular {gm/dL} Health hemoglobin System concentration [Mass/volume] by Automated count Erythrocyte mean 85.7 fl Normal (applies MCV [facility] corpuscular to non-numeric Health volume [Entitic results) System volume] by Automated count Platelets 229 Normal (applies Platelet Count [facility] [#/volume] in {10^3_uL to non-numeric Health Plasma by } results) System Automated count Erythrocyte 12.8 % Normal (applies RDW-CV [facility] distribution to non-numeric Health width [Entitic results) System volume] by Automated count Platelet mean 9.2 fl Normal (applies MPV [facility] volume [Entitic to non-numeric Health volume] in Blood results) System by Automated count Monocytes 0.9 Normal (applies Monocyte # [facility] [#/volume] in {10^3_uL to non-numeric Health Blood by Manual } results) System count Eosinophils 0.08 Normal (applies Eosinophil # [facility] [#/volume] in {10^3_uL to non-numeric Health Blood } results) System Neutrophils 6.2 Normal (applies Neutrophil # [facility] [#/volume] in {10^3_uL to non-numeric Health Body fluid } results) System Basophils 0.04 Normal (applies Basophil # [facility] [#/volume] in {10^3_uL to non-numeric Health Blood by } results) System Automated count Lymphocyte 3.8 Normal (applies Lymphocyte # [facility] percent {10^3_uL to non-numeric Health differential } results) System count (procedure) Monocytes/100 8.1 % Normal (applies Monocyte % [facility] leukocytes in to non-numeric Health Blood results) System Neutrophils/100 56.2 % Normal (applies Neutrophil % [facility] leukocytes in to non-numeric Health Blood by results) System Automated count Eosinophils/100 0.7 % Normal (applies Eosinophil % [facility] leukocytes in to non-numeric Health Unspecified results) System specimen Basophils/100 0.4 % Normal (applies Basophil % [facility] leukocytes in to non-numeric Health Unspecified results) System specimen by Manual count Lymphocytes 34.3 % Normal (applies Lymphocyte % [facility] [#/volume] in to non-numeric Health Blood by results) System Automated count ImmatureGranuloc 0.3 % Normal (applies Immature [facility] ytes% to non-numeric Granulocytes % Health results) System Nucleated 0.0 Normal (applies NRBC % [facility] erythrocytes {/100_WB to non-numeric Health [#/volume] in C} results) System Body fluid NRBC# 0.00 Below low normal NRBC # [facility] {10^3_uL Health } System ImmatureGranuloc 0.03 Normal (applies Immature [facility] ytes# {10^3_uL to non-numeric Granulocytes # Health } results) System ID Date Data Source [id number] 04/15/2019 11:54:08 AM EDT [facility] System Name Value Range Interpretation Description Data Sup porting Code Source(s) Document(s ) Sodium 144 Normal (applies Sodium, Serum [facility] [Moles/volume] in mmol/L to non-numeric Health Serum or Plasma results) System Potassium 3.9 Normal (applies Potassium, [facility] [Mass/volume] in mmol/L to non-numeric Serum Health Serum or Plasma results) System Chloride 106 Normal (applies Chloride, [facility] [Moles/volume] in mmol/L to non-numeric Serum Health Serum or Plasma results) System TotalProtein 7.2 Normal (applies Total Protein [facility] mg/dl to non-numeric Health results) System Carbon dioxide, 27.0 Normal (applies CO2, Serum [facility] total mmol/L to non-numeric Health [Moles/volume] in results) System Serum or Plasma Urea nitrogen 29 Above high Blood Urea [facility] [Mass/volume] in mg/dl normal Nitrogen, Health Serum or Plasma Serum System Glucose 114 Above high Glucose, [facility] [Mass/volume] in mg/dL normal Serum Health Serum or Plasma System Bilirubin.total 0.5 Normal (applies Bilirubin, [facility] [Mass/volume] in mg/dl to non-numeric Serum Total Health Serum or Plasma results) System Creatinine 1.30 Above high Creatinine, [facility] [Mass/volume] in mg/dl normal Serum Health Serum or Plasma System Alkaline 80 Normal (applies Alkaline [facility] phosphatase {IU/L} to non-numeric Phosphatase, Health isoenzymes results) Serum System [Enzymatic activity/volume] in Serum or Plasma by Heat stability DirectBilirubin 0.2 Normal (applies Direct [facility] mg/dl to non-numeric Bilirubin Health results) System Aspartate 16 Normal (applies Aspartate [facility] aminotransferase {IU/L} to non-numeric Transaminase, Heal th [Enzymatic results) Serum System activity/volume] in Serum or Plasma by With P-5'-P I.Phosphorus 3.8 Normal (applies I. Phosphorus [facility] mg/dl to non-numeric Health results) System Albumin 4.3 Normal (applies Albumin, [facility] [Mass/volume] in {gm/dl} to non-numeric Serum Health Serum or Plasma results) System Alanine 13 Normal (applies Alanine [facility] aminotransferase {IU/L} to non-numeric Aminotransfer Heal th [Enzymatic results) ase, Serum System activity/volume] in Serum or Plasma Calcium 9.9 Normal (applies Calcium, [facility] [Mass/volume] in mg/dl to non-numeric Total Serum Health Serum or Plasma results) System Urate 7.9 Above high Uric Acid, [facility] [Mass/volume] in mg/dl normal Serum Health Serum or Plasma System A/GRatio 1.48 Normal (applies A/G Ratio [facility] to non-numeric Health results) System Anion gap in Serum 11.00 Normal (applies Anion Gap Parrish liam or Plasma mmol/L to non-numeric Health results) System Glomerular 40.04 Normal (applies GFR [facility] filtration to non-numeric Health rate/1.73 sq results) System M.predicted [Volume Rate/Area] in Serum or Plasma by Creatinine-based formula (CKD-EPI) eGFR will provide clinicians with a more accurate indicator of renal function then the serum creatinine. The eGFR is automa tically calculated from an empiric formula (endorsed by the National [employer] ion) which incorporates age, sex, and race.Clinicians may notice surprisingly low GFR's with serum creatinine valueswithin normal range- particularly in elderly wo men (with low muscle mass).In the hospital setting, the eGFR should add an element of safety in drug dosing, in assessing the risk of IV contrast administration, and in assessing vascular risk.The NKF staging system is as follows:Normal: eGFR >90 with no kidney markersStage 1: eGFR >90 with kidney markers*Stage 2: eGFR 60- 89Stage 3: eGFR 30-59Stage 4: eGFR 15-29Stage 5: eGFR <15 (usually requir ing dialysis)*Markers include: Proteinuria, Hematuria, abnormal imaging-studies, or other blood or urine test abnormalities ID Date Data Source [id number] 04/15/2019 11:54:08 AM EDT [facility] Name Value Range Interpretation Description Data Source(s ) Supporting Code Document(s ) Troponin 0.01 Normal (applies to Troponin I [facility] IQuantit ng/mL non-numeric Quantitative - Health System ative-MV results) MV Only Only ID Date Data Source [id number] 04/15/2019 11:54:08 AM EDT [facility] Name Value Range Interpretation Description Data Sup porting Code Source(s) Document(s ) Color YELLOW Normal (applies Color [facility] to non-numeric Health results) System Appearance of CLEAR Normal (applies Urine [facility] Urine to non-numeric Appearance Health results) System pH.. 6.0 Normal (applies pH.. [facility] {pH_units} to non-numeric Health results) System Specific gravity 1.020 Normal (applies Urine Specific Mo [facility] of Urine to non-numeric [place] [facility] results) System Glucose,UA NEGATIVE Normal (applies Glucose, UA [facility] to non-numeric Health results) System Protein NEGATIVE Normal (applies Protein [facility] [Mass/volume] in to non-numeric Health Serum or Plasma results) System BilirubinUrine NEGATIVE Normal (applies Bilirubin [facility] to non-numeric Urine Health results) System Urobilinogen 0.2 mg/dL Normal (applies Urobilinogen [facility] [Mass/volume] in to non-numeric UA Health Urine results) System Ketones NEGATIVE Normal (applies Ketones UA [facility] [Mass/volume] in to non-numeric Health Urine results) System Nitrate+Nitrite NEGATIVE Normal (applies Nitrite [facility] [Mass/volume] in to non-numeric Health Unspecified results) System specimen Leukocyte MODERATE Abnormal Leukocyte [facility] esterase (applies to Esterase Health [Units/volume] non-numeric Concentration System in Urine results) Leukocytes 40 {/HPF} Normal (applies White Blood [facility] [#/volume] in to non-numeric Cells Health Unspecified results) System specimen by Automated count UrineBlood TRACE-INTA Abnormal Urine Blood [facility] (applies to Health non-numeric System results) RedBloodCells 2 {/HPF} Normal (applies Red Blood [facility] to non-numeric Cells Health results) System ID Date Data Source [id number] 01/03/2019 03:00:00 PM EDT [facility] ([facility]) Name Value Range Interpretation Description Data Sup porting Code Source(s) Document(s ) XR .ACCESSION <td [facility] CHEST NUMBER: ID="Observation- (Lynch AP 1 [id number] NOTE: [id number] Park C enter VIEW CHESTCLINICAL [id number] for Pippa sing (STAT00 INDICATION: I10 [id number]">(STAT And 44) HTN Essential 0044) XR CHEST Rehabilitat (primary) I10 AP 1 VIEW ion) Essential ([id number])</td>< (primary) td hypertensionTech ID="Observation- nique: Chest, [id number] single [id number] view.Comparison: [id number]">.ACC 10/30/2018.Findin ESSION NUMBER: gs: The [id number] NOTE: cardiovascular CHESTCLINICAL contours are INDICATION: I10 mildly HTN Essential prominent. Right (primary) I10 sided calcified Essential aortic arch, (primary) normal hypertensionTech variation. nique: Chest, Pulmonary single vascularity is view.Comparison: unremarkable. 10/30/2018.Findin There are no gs: The focal cardiovascular infiltrates. contours are Bilateral mildly costophrenic prominent. Right angles are sided calcified sharp. No aortic arch, pleural effusion normal noted. The bony variation. mineralization Pulmonary is mildly vascularity is decreased. Mild unremarkable. degenerative There are no changes are focal noted in the infiltrates. gleno-humeral Bilateral joints.Impressio costophrenic n: 1. No acute angles are cardiac or sharp. No pulmonary pleural effusion pathology. In noted. The bony comparison with mineralization prior exam, is mildly findings are decreased. Mild stable.2. degenerative Cardiac size changes are mildly noted in the prominent.3. gleno-humeral Mild degree of joints.Impressio osteoporosis.4. n: 1. No acute Mild cardiac or osteoarthritis.. pulmonary ....Electronical pathology. In ly SignedImam comparison with Naiyer prior exam, findings are stable.2. Cardiac size mildly prominent.3. Mild degree of osteoporosis.4. Mild osteoarthritis.. ....Electronical ly SignedImam [facility]</td><td ID="Observation- [id number]"></td> <td ID="Observation- RefRange-[id number] -[id number]">< /td><td ID="Observation- Abnormal-[id number] -[id number]">< /td><td ID="Observation- [id number]">Fin al</td> ID Date Data Source [id number] 12/07/2018 02:24:00 PM EDT [facility] CAT scan of the abdomen and pelvisHistor y: Visit reason: Abd pain;Findings:Contiguous axial 5 mm imag es were obtained from a single helical acquisition through the abdomen and pelv is. The examination extends from the lower portion of the chest superiorly to the s ymphysis pubis inferiorly. This scan was performed using automatic exposure contr ol (radiation dose reduction software) to obtain a diagnostic image quality scan w ith patient dose as low as reasonably achievable.Reconstruction views were obt ained.DOSE INFORMATION: Estimated radiation dose for this examination in total is DL P of 360 mGy-cm. The descending thoracic aorta is on the right.The liver is galo l in size and shows no evidence of space-occupying lesions.It contains juan ral calcified granuloma.Multiple calcified granuloma are seen within the spleen.The stomach appears grossly unremarkable.Probable calcified granulom a adjacent to the distal esophagus.The pancreas outlines normally without evide nce of mass.The gallbladder is grossly unremarkable.The adrenal glands show no evidence of mass.The kidneys show no evidence of mass, hydronephrosis, or abnormal adriano cifications. There is a tiny parapelvic cyst on the left.No evidence of bowel obstruc tion.The presacral space is clear.The urinary bladder shows no evidence of mass or sto sameer.The patient is status post hysterectomy.There is a fat containing r ight inguinal hernia.There appears to be a degenerative bulging L5-S1 disc space.Im pression: Old granulomatous disease.Right-sided descending thoracic aorta.The patient is status post hysterectomy. Name Value Range Interpretation Code Description Data Elsie rce(s) Supporting Document(s ) ID Date Data Source [id number] 12/07/2018 02:57:00 PM EDT [facility] [place] chest x-rayHistory: Visit reason: Ab d pain; Findings: Heart size is normal.There is a right-sided aortic arch.There is no evidence of congestive heart failure.No acute infiltrates are present. The cost ophrenic angles are sharp.The trachea is midline. Catarina structures outline normal ly.Impression:Right-sided aortic arch.No acute disease. Name Value Range Interpretation Code Description Data Elsie rce(s) Supporting Document(s ) ID Date Data Source [id number] 12/05/2018 03:00:00 PM EDT [facility] ([facility]) Name Value Range Interpretation Description Data Sup porting Code Source(s) Document(s ) US .ACCESSION <td [facility] ABDOMINAL NUMBER: ID="Observation-T (Lynch ([id number]) [id number] [place] NOTE: -[id number] [place] for ABDCLINICAL [id number]">([id number] Nursing INDICATION: ) US ABDOMINAL And R10.10 Upper ([id number])</td><t Rehabilit a abdominal pain, d tion) unspecified ID="Observation-V R10.10 Upper [id number]-[id number] abdominal pain, [id number] unspecified.Blanca [id number]">.ACCESSI hnique: ON NUMBER: Real-time [id number] NOTE: high-resolution ABDCLINICAL ultrasound INDICATION: evaluation of R10.10 Upper the upper abdominal pain, abdomen was unspecified performed.Findi R10.10 Upper ngs: The spleen abdominal pain, was not unspecified.Techn well-seen but ique: Real-time has grossly high-resolution normal uniform ultrasound echotexture. evaluation of the Both kidneys upper abdomen was demonstrate performed.Finding excellent s: The spleen was corticomedullar not well-seen but y has grossly differentiation normal uniform . There is no echotexture. Both evidence for kidneys renal mass, demonstrate renal cyst, excellent shadowing corticomedullary calculus, differentiation. hydronephrosis There is no or abnormal evidence for perinephric renal mass, renal fluid cyst, shadowing collection. The calculus, left kidney hydronephrosis or measures 8.8 x abnormal 5.2 x 4.1 cm, perinephric fluid and the right collection. The kidney measures left kidney 9.6 x 5.0 x 4.3 measures 8.8 x cm.The liver 5.2 x 4.1 cm, and parenchyma is the right kidney normal and measures 9.6 x uniform without 5.0 x 4.3 cm.The hepatic mass, liver parenchyma cyst or biliary is normal and ductal uniform without dilatation. The hepatic mass, common bile cyst or biliary duct measures ductal 2.8 mm in dilatation. The diameter. The common bile duct gallbladder is measures 2.8 mm clear without in diameter. The stones, sludge, gallbladder is or clear without pericholecystic stones, sludge, fluid. or Visualized pericholecystic portions of the fluid. Visualized aorta and IVC portions of the have normal aorta and IVC caliber. The have normal pancreas was caliber. The not well-seen. pancreas was not No abnormal well-seen. No fluid abnormal fluid collections or collections or masses are seen masses are seen in the upper in the upper abdomen.Impress abdomen.Impressio ion: Negative n: Negative abdominal abdominal ultrasound....E ultrasound....Gail lectronically ctronically SignedGlaser SignedGlaser [facility] Cardona</td><td ID="Observation-U [id number]"></td><td ID="Observation-R [id number]"></td> <td ID="Observation-A bnormal-[id number]"></td> <td ID="Observation-S [id number]">Final</ td> ID Date Data Source [id number] 11/29/2018 03:00:00 PM EDT [facility] ([facility]) Name Value Range Interpretation Description Data Sup porting Code Source(s) Document(s ) XR RIGHT .ACCESSION <td [facility] KNEE 2 NUMBER: ID="Observation (Lynch VIEWS [id number] NOTE: -[id number]- Park Ce nter ([id number] Right Knee 3 [id number]- for Nursi ng 4) viewsCLINICAL [id number]">( And INDICATION: [id number]) XR [facility]habil[facility] M25.561 Pain in RIGHT KNEE 2 ion) right knee R52 VIEWS Pain, ([id number])</td> unspecified.Find <td ings: 3 views of ID="Observation the right knee -Value-[id number] were obtained. -[id number] There is medial -n87szn367lrx"> compartment .ACCESSION joint space NUMBER: narrowing. [id number] Osteophytic NOTE: Right changes are seen Knee 3 around the joint viewsCLINICAL space. The INDICATION: osseous M25.561 Pain in structures are right knee R52 intact, without Pain, evidence of unspecified.Fin fracture or dings: 3 views dislocation. The of the right soft tissues are knee were within normal obtained. There limits..Impressi is medial on: No acute compartment findings. joint space Moderate narrowing. osteoarthritis.. Osteophytic Patient: JANNA, changes are ROBERTO..Electroni seen around the sumit joint space. SignedShanker The osseous Pradheep structures are intact, without evidence of fracture or dislocation. The soft tissues are within normal limits..Impress ion: No acute findings. Moderate osteoarthritis. .Patient: ROBERTO SALDIVAR..Electron lissa Miller</td><t d ID="Observation -[id number]">< /td><td ID="Observation -RefRange-cc50c [id number] f"></td><td ID="Observation -Abnormal-cc50c [id number] f"></td><td ID="Observation -Status-[id number]" >Final</td> ID Date Data Source [id number] 10/28/2018 03:00:00 PM EDT [facility] ([facility]) Name Value Range Interpretation Description Data Sup porting Code Source(s) Document(s ) XR .ACCESSION NUMBER: <td [facility] CHEST [id number] NOTE: ID="Observation-Te (Freed tton AP 1 CHEST 1 [id number] Park VIEW ViewCLINICAL [id number] Center f or (STAT0 INDICATION: Z11.1 9f4">([id number]) XR Pippa sing 044) Encounter for CHEST AP 1 VIEW And screening for ([id number])</td><td Rehabil maurice respiratory ID="Observation-Va tion) tuberculosis Z11.1 [id number]- Encounter for [id number] screening for 39f4">.ACCESSION respiratory NUMBER: tuberculosisTechni [id number] NOTE: que: Chest, single CHEST 1 viewComparison: ViewCLINICAL None.Findings: The INDICATION: Z11.1 cardiomediastinal Encounter for silhouette is screening for normal. Pulmonary respiratory vascularity is tuberculosis Z11.1 unremarkable. Encounter for Right sided aortic screening for arch, normal respiratory variation. There tuberculosisTechni are no focal que: Chest, single infiltrates. The viewComparison: costophrenic None.Findings: The angles are sharp cardiomediastinal with no pleural silhouette is effusion. The bony normal. Pulmonary mineralization is vascularity is normal. Mild unremarkable. degenerative Right sided aortic changes are noted arch, normal in the variation. There gleno-humeral are no focal joints.Impression: infiltrates. The 1. No radiographic costophrenic evidence of acute angles are sharp cardiopulmonary with no pleural disease.2. effusion. The bony Specifically, no mineralization is radiographic normal. Mild evidence of active degenerative TB.3. Right sided changes are noted aortic arch, in the normal gleno-humeral variation.4. Mild joints.Impression: osteoarthritis 1. No radiographic demonstrated...... evidence of acute Electronically cardiopulmonary SignedImam Naiyer disease.2. Specifically, no radiographic evidence of active TB.3. Right sided aortic arch, normal variation.4. Mild osteoarthritis demonstrated...... Electronically SignedImam Naiyer</td><td ID="Observation-Un [id number] 9f4"></td><td ID="Observation-Re [id number]"></td><td ID="Observation-Ab [id number]"></td><td ID="Observation-St [id number]">Final</td> Procedure Social History Code Duration Value Status Description Data Source(s ) Smoking 03/19/2020 Born in [facility] Born in [place] Barrie RUSHING ([facility] 12:00:00 AM EDT rico Non Non Smoker Medical, ) Smoker Non Non Drinker No Drug Drinker No Drug use use Smoking 03/19/2020 Unknown if ever completed Unknown if ever MEDG EN ([facility] 12:00:00 AM EDT smoked smoked Medical, ) Smoking 03/19/2020 [place] Barrie RUSH[place] ([facility] 12:00:00 AM EDT [place] Non Non Smoker [facility], ) Smoker Non Non Drinker No Drug Drinker No Drug use use Smoking 03/19/2020 Unknown if ever completed Unknown if ever MEDG EN ([facility] 12:00:00 AM EDT smoked smoked [facility]) Vital Signs ID Date Data Source UNK Name Value Range Interpretation Code Description Data Source(s) Heart rate 77 /min 77 /min [facility] ([facility]) Inhaled oxygen 98 % 98 % [facility] ([facility]) Body mass index 29.8 kg/m2 29.8 kg/m2 [facility] (S t (BMI) [Ratio] [facility]) Diastolic blood 74 mm[Hg] 74 mm[Hg] [facility] (S t pressure [facility]) Systolic blood 122 mm[Hg] 122 mm[Hg] [facility] ([facility]) Body weight 164 lb 164 lb [facility] ([facility]) Body height 62.25 in 62.25 in [facility] ([facility]) Heart rate 77 /min 77 /min [facility] ([facility]) Inhaled oxygen 98 % 98 % [facility] ([facility]) Body mass index 29.8 kg/m2 29.8 kg/m2 [facility] (S t (BMI) [Ratio] [facility]) Diastolic blood 74 mm[Hg] 74 mm[Hg] [facility] (S t pressure [facility]) Systolic blood 122 mm[Hg] 122 mm[Hg] [facility] ([facility]) Body weight 164 lb 164 lb [facility] Body height 62.25 in 62.25 in [facility]) Body temperature 37 [place] 0 - 99.9 Normal (applies to 37 [place] [facility] non-numeric [facility] System results) Body temperature 98.6 [degF] 0 - 200 Normal (applies to 98.6 [degF ] [facility] non-numeric [facility] System results) Diastolic blood 80 mm[Hg] 0 - 999 Normal (applies to 80 mm[Hg] [facility] pressure non-numeric Health System results) Systolic blood 140 mm[Hg] 0 - 999 Above high normal 140 mm[Hg] [facility] Oxygen saturation 100 % 0 - 999 Normal (applies to 100 % [facility] in Arterial blood non-[facility] Health System by Pulse oximetry results) Respiratory rate 17 0 - 999 Normal (applies to 17 [facility] non-numeric Health System results) Heart rate 80 0 - 999 Normal (applies to 80 [facility] non-numeric [facility] results) Body surface area 1.8 m2 1.8 m2 [facility] Derived from Moxtrae m formula Body mass index 26.3 kg/m2 26.3 kg/m2 [facility] (BMI) [Ratio] Health Syst em Body weight 76.2 kg 76.2 kg [facility] Health System Body height 170.18 cm 170.18 cm [facility] System Diastolic blood 89 mm[Hg] 0 - 999 Above high normal 89 mm[Hg] [facility] pressure [facility] System Systolic blood 146 mm[Hg] 0 - 999 Above high normal 146 mm[Hg] [facility] pressure Health System Deprecated Oxygen 98 % 0 - 999 Normal (applies to 98 % [facility] non-numeric Health Sys tem Capillary blood by results) Oximetry Respiratory rate 16 0 - 999 Normal (applies to 16 [facility] non-numeric Health System results) Heart rate 90 0 - 999 Normal (applies to 90 [facility] non-numeric Health System results) Body temperature 37 [place] 0 - 99.9 Normal (applies to 37 [place] [facility] non-numeric Health System results) Body temperature 98.6 [degF] 0 - 200 Normal (applies to 98.6 [degF ] [facility] non-numeric Health System results) Body surface area 1.8 m2 1.8 m2 [facility] Derived from Moxt[employer] m formula Body mass index 25.3 kg/m2 25.3 kg/m2 [facility] (BMI) [Ratio] Health Syst em Body weight 71.21 kg 71.21 kg [facility] Measured Health System Body height 167.64 cm 167.64 cm [facility] Health System Diastolic blood 68 mm[Hg] 0 - 999 Normal (applies to 68 mm[Hg] [facility] pressure non-numeric Health System results) Systolic blood 118 mm[Hg] 0 - 999 Normal (applies to 118 mm[Hg] [facility] pressure non-numeric Health System results) Deprecated Oxygen 96 % 0 - 999 Normal (applies to 96 % [facility] saturation in non-numeric Health Sys tem Capillary blood by results) Oximetry Respiratory rate 16 0 - 999 Normal (applies to 16 [facility] non-numeric Health System results) Heart rate 83 0 - 999 Normal (applies to 83 [facility] non-numeric [facility] results) Body temperature 97.3 [degF] 0 - 200 Normal (applies to 97.3 [degF ] [facility] non-numeric Health System results) Body temperature 36.2 [place] 0 - 99.9 Below low normal 36.2 [place] [facility] Body surface area 1.7 m2 1.7 m2 [facility] ore Derived from Health Syste m formula Body mass index 26.6 kg/m2 26.6 [facility] Body weight 70.3 kg 70.3 kg [facility] Body height 162.56 cm 162.56 cm [facility] Patient Treatment Plan of Care Planned Activity Planned Date Details Description Data Source (s) Sulfamethoxazole 800 MG / 04/14/2019 [facility] Trimethoprim 160 MG Oral 06:56:41 AM EDT System Tablet [Bactrim] SEROquel [facility] Zolpidem tartrate 5 MG Oral [facility] Tablet [Ambien] System ferrous sulfate 325 MG Oral [facility] Tablet System PARoxetine 40 mg oral tablet [facility] Hydrochlorothiazide 12.5 MG [facility] Oral Tablet System atorvastatin 80 MG Oral [facility] Tablet System Aspirin [facility] Lisinopril 10 MG Oral Tablet [facility]
[2020-04-02 18:03] VITALS: BMI 27.4
[2020-04-04 14:07] VITALS: BP 118/71; PULSE 80; TEMP 98
--- NOTE | 2020-04-06 16:04 | PATH ---
Surgical Pathology Report Patient Name: ROBERTO SALDIVAR [facility]. Rec. #: [id number] /Age/Gender: 1945 (Age: 74) / F Account: [id number] Location: [facility] Taken: 04/04/2020 Received: 04/04/2020 Reported: 04/06/2020 Physicians: Larisa Gómez M.D. Specimen(s) Received A: BIOPSY SECOND PORTION DUODENUM B: BIOPSY GASTRIC ANTRUM C: BIOPSY GE JUNCTION Clinical History Abdominal pain Postoperative diagnosis: Gastritis Final Diagnosis A. DUODENUM, SECOND PORTION, BIOPSY: DUODENAL MUCOSA WITH MILD CHRONIC DUODENITIS AND PRESERVED VILLOUS ARCHITECTURE. B. GASTRIC ANTRUM, BIOPSY: GASTRIC ANTRAL MUCOSA WITH MILD CHRONIC GASTRITIS. IMMUNOHISTOCHEMICAL STAIN FOR H. PYLORI IS NEGATIVE. C. GE JUNCTION, BIOPSY: SQUAMOCOLUMNAR MUCOSA WITH MODERATE CHRONIC INFLAMMATION AND CHANGES OF MILD REFLUX ESOPHAGITIS. NO INTESTINAL METAPLASIA OR DYSPLASIA IDENTIFIED. Positive and negative controls (internal if applicable) show appropriate results. Electronically Signed Larisa Leonard M.D. Gross Description A. Received in formalin, labeled "biopsy second portion of duodenum" is a yo, irregular portion of soft tissue measuring 0.4 cm. in greatest dimension. The specimen is submitted in toto in one cassette. B. Received in formalin, labeled "biopsy gastric antrum" is a yo, irregular portion of soft tissue measuring 0.5 cm. in greatest dimension. The specimen is submitted in toto in one cassette. C. Received in formalin, labeled "biopsy GE junction" is a yo, irregular portion of soft tissue measuring 0.2 cm. in greatest dimension. The specimen is submitted in toto in one cassette. /04/05/2020 saudi04/05/2020
== END 2020-04-04 13:20 ==
LOC: FASU-ENDO 11:03
PROVIDERS: ATTEND Internal Medicine Gastroenterology
PROC: 0DB68ZX Excision of Stomach, Via Natural or Artificial Opening Endoscopic, Diagnostic (ICD-10-PCS; 2020-04-04)
PROC: 0DB48ZX Excision of Esophagogastric Junction, Via Natural or Artificial Opening Endoscopic, Diagnostic (ICD-10-PCS; 2020-04-04)
PROC: 0DB98ZX Excision of Duodenum, Via Natural or Artificial Opening Endoscopic, Diagnostic (ICD-10-PCS; principal; 2020-04-04 12:02)
DX: K29.80 Duodenitis without bleeding (principal); K29.50 Unspecified chronic gastritis without bleeding; K21.0 Gastro-esophageal reflux disease with esophagitis; I10 Essential (primary) hypertension; E11.9 Type 2 diabetes mellitus without complications; E78.5 Hyperlipidemia, unspecified; M19.90 Unspecified osteoarthritis, unspecified site; Z86.73 Personal history of transient ischemic attack (TIA), and cerebral infarction without residual deficits; G30.9 Alzheimer's disease, unspecified; F02.80 Dementia in other diseases classified elsewhere, unspecified severity, without behavioral disturbance, psychotic disturbance, mood disturbance, and anxiety; F32.9 Major depressive disorder, single episode, unspecified; F20.9 Schizophrenia, unspecified; F43.10 Post-traumatic stress disorder, unspecified
CPT/HCPCS: 88305-TC; 88342-TC

== ENCOUNTER 2020-05-23 09:34 | Day surgery (SDC) | payer OTHER ==
[2020-05-21 16:04] VITALS: BMI 27.4
[2020-05-23 11:54] VITALS: TEMP 97.8
[2020-05-23 12:15] VITALS: BP 105/68; PULSE 71
== END 2020-05-23 12:40 | disposition home or self-care (01) ==
LOC: FASU-ENDO 09:34
PROVIDERS: ATTEND Internal Medicine Gastroenterology
PROC: 0DBK8ZX Excision of Ascending Colon, Via Natural or Artificial Opening Endoscopic, Diagnostic (ICD-10-PCS; principal; 2020-05-23 11:16)
DX: Z12.11 Encounter for screening for malignant neoplasm of colon (principal); D12.2 Benign neoplasm of ascending colon; K64.1 Second degree hemorrhoids
CPT/HCPCS: 88305-TC

== ENCOUNTER 2020-08-21 16:14 | Inpatient (IN) | payer OTHER ==
[2020-08-21 16:37] VITALS: BMI 27.9
[2020-08-21] MEDS ORDERED: SODIUM CHLORIDE 0.9% 500 ML INFUS.BAG IV ONE (16:47)
[2020-08-21] MEDS ORDERED: FAMOTIDINE 20 MG/50 ML IVPB 20 MG/50 ML MG IVPB ONE ×2 (16:47→18:47)
[2020-08-21] MEDS ORDERED: MAG HYDROX/AL HYDROX/SIMETH -MYLANTA- ORAL SUSPENSION PO ONE (16:47)
[2020-08-21] MEDS ORDERED: MAG HYDROX/AL HYDROX/SIMETH 30 ML UNIT-DOSE CUP ONE (18:47)
[2020-08-21 18:49] LABS: BASO % 0.3 % (0-2.0); EOS % 0.4 % (0-4.5); HEMATOCRIT 37.5 % (32.4-45.2); HEMOGLOBIN 12.3 GM/dL (10.7-15.3); LYMPH % 35.5 % (8-40); MCH 27.2 pg (25.7-33.7); MCHC 32.8 g/dl (32.0-36.0); MEAN CELL VOLUME 82.7 fl (80-96); MEAN PLT VOLUME 7.9 fl (7.5-11.1); MONO % 6.1 % (3.8-10.2); NEUT % 57.7 % (42.8-82.8); PLATELET COUNT 251 K/MM3 (134-434); RBC 4.54 M/mm3 (3.60-5.2); WHITE BLOOD COUNT 10.9 K/mm3 (4.0-10.0)
[2020-08-21 19:23] LABS: CHLORIDE 104 mmol/L (98-107); POTASSIUM 3.9 mmol/L (3.5-5.1); SODIUM 140 mmol/L (136-145)
[2020-08-21 19:25] LABS: CALCIUM 9.8 mg/dL (8.5-10.1)
[2020-08-21 19:26] LABS: ANION GAP 5 MMOL/L (8-16); BLOOD UREA NITROGEN 24.8 mg/dL (7-18); CO2 31 mmol/L (21-32); GLUCOSE,RANDOM 86 mg/dL (74-106); LIPASE 173 U/L (73-393)
[2020-08-21 19:28] LABS: SGPT/ALT 25 U/L (13-61)
[2020-08-21 19:29] LABS: CREATININE 1.4 mg/dL (0.55-1.3); SGOT/AST 20 U/L (15-37)
[2020-08-21 19:30] LABS: BILIRUBIN,TOTAL 0.6 mg/dL (0.2-1)
[2020-08-21 19:31] LABS: ALK PHOS 78 U/L (45-117)
[2020-08-21] MEDS ORDERED: SUCRALFATE 1 GM/10 ML UNIT DOSE CUPS PO ONE (21:12)
[2020-08-21] MEDS ORDERED: ACETAMINOPHEN 500 MG TABLET (FP) PO ONE (21:12)
[2020-08-21] MEDS ORDERED: ASPIRIN 325 MG TABLET PO ONE (21:12)
[2020-08-21] MEDS ORDERED: ACETAMINOPHEN 325 MG TABLET (FP) ONE (22:32)
[2020-08-21] MEDS ORDERED: SUCRALFATE 1 GM TABLET (FP) ONE (22:32)
[2020-08-21] MEDS ORDERED: ASPIRIN 325 MG ENTERIC COATED TABLET (FP) ONE (22:32)
[2020-08-22] MEDS ORDERED: SODIUM CHLORIDE 1,000 ML IV SCH (00:30)
[2020-08-22] MEDS ORDERED: HEPARIN NA (PORCINE) 5,000 UNITS/ML 1ML VIAL ONE (05:27)
[2020-08-22] MEDS: HEPARIN NA (PORCINE) 5,000 UNITS/ML 1ML VIAL SQ SCH ×2 (06:02→12:40)
[2020-08-22 09:03] LABS: BASO % 0.3 % (0-2.0); EOS % 0.9 % (0-4.5); HEMATOCRIT 35.9 % (32.4-45.2); HEMOGLOBIN 11.9 GM/dL (10.7-15.3); LYMPH % 46.4 % (8-40); MCH 27.7 pg (25.7-33.7); MCHC 33.2 g/dl (32.0-36.0); MEAN CELL VOLUME 83.4 fl (80-96); MEAN PLT VOLUME 8.1 fl (7.5-11.1); MONO % 8.8 % (3.8-10.2); NEUT % 43.6 % (42.8-82.8); PLATELET COUNT 227 K/MM3 (134-434); RDW 13.2 % (11.6-15.6); WHITE BLOOD COUNT 9.3 K/mm3 (4.0-10.0)
[2020-08-22 09:13] LABS: POTASSIUM 3.8 mmol/L (3.5-5.1)
[2020-08-22 09:21] LABS: CALCIUM 9.4 mg/dL (8.5-10.1)
[2020-08-22 09:22] LABS: ALBUMIN 3.9 g/dl (3.4-5.0); BLOOD UREA NITROGEN 25.2 mg/dL (7-18); MAGNESIUM 2.7 mg/dL (1.8-2.4)
[2020-08-22 09:25] LABS: CREATININE 1.3 mg/dL (0.55-1.3); PHOSPHOROUS 3.8 mg/dL (2.5-4.9)
[2020-08-22 09:26] LABS: TOT PROT 7.5 g/dl (6.4-8.2)
[2020-08-22] MEDS: INSULIN SLIDING SCALE (NOVOLOG) 1 VIAL SQ SCH ×2 (09:39→12:39)
[2020-08-22] MEDS ORDERED: PANTOPRAZOLE SODIUM 40 MG VIAL IVPUSH SCH (10:00)
[2020-08-22] MEDS ORDERED: MAG HYDROX/AL HYDROX/SIMETH 30 ML UNIT-DOSE CUP PO PRN (10:50)
[2020-08-22] MEDS ORDERED: PANTOPRAZOLE SODIUM 40 MG VIAL ONE (11:36)
[2020-08-22] MEDS ORDERED: HEPARIN NA (PORCINE) 5,000 UNITS/ML 1ML VIAL SQ SCH (14:00)
[2020-08-22 17:01] VITALS: BP 141/82; PULSE 85; TEMP 98.2
[2020-08-22] MEDS ORDERED: MELATONIN 5 MG TABLETS PO SCH (22:00)
[2020-08-22] MEDS ORDERED: QUEtiapine FUMARATE 50 MG TABLET PO SCH (22:00)
[2020-08-22] MEDS ORDERED: MEMANTINE HCL 5 MG TABLET (UD) PO SCH (22:00)
[2020-08-22] MEDS ORDERED: ATORVASTATIN CA 80 MG TABLET (FP) PO SCH (22:00)
[2020-08-22] MEDS ORDERED: DOCUSATE SODIUM 100 MG CAPSULE (FP) PO SCH (22:00)
[2020-08-22] MEDS ORDERED: ZOLPIDEM TARTRATE 5 MG TABLET PO PRN (22:00)
[2020-08-23] MEDS ORDERED: FLUTICASONE PROP 0.05% 16 GM NASAL SPRAY NS SCH (10:00)
[2020-08-23] MEDS ORDERED: LISINOPRIL 10 MG TABLET PO SCH (10:00)
[2020-08-23] MEDS ORDERED: DONEPEZIL HCL 10 MG TABLET (FP) PO SCH (10:00)
[2020-08-23] MEDS ORDERED: PARoxetine HCL 20 MG TABLET PO SCH (10:00)
== END 2020-08-22 16:00 | disposition home or self-care (01) | DRG 384 ==
LOC: JER 16:14 → JERBED 21:13 → OBSVTOIN 23:30
PROVIDERS: ADMIT Internal Medicine; ATTEND Internal Medicine
DX: K27.9 Peptic ulcer, site unspecified, unspecified as acute or chronic, without hemorrhage or perforation (principal); I69.354 Hemiplegia and hemiparesis following cerebral infarction affecting left non-dominant side; N17.9 Acute kidney failure, unspecified; R10.13 Epigastric pain; E11.9 Type 2 diabetes mellitus without complications; I10 Essential (primary) hypertension; E78.5 Hyperlipidemia, unspecified; K21.9 Gastro-esophageal reflux disease without esophagitis; F41.8 Other specified anxiety disorders; F03.90 Unspecified dementia, unspecified severity, without behavioral disturbance, psychotic disturbance, mood disturbance, and anxiety; K76.0 Fatty (change of) liver, not elsewhere classified; Z87.11 Personal history of peptic ulcer disease; M81.0 Age-related osteoporosis without current pathological fracture
CPT/HCPCS: 36415; 74177-TC; 76705-TC; 80053; 82550; 82553; 82962; 83036; 83605; 83690; 83735; 84100; 84436; 84443; 84484; 85025; 93005; 93010; 99285-25; C9803; G0378; J1644; Q9967; U0003

== ENCOUNTER 2020-10-24 08:45 | Day surgery (SDC) | payer OTHER ==
[2020-10-23 10:15] VITALS: BMI 27.4
[2020-10-24 15:19] VITALS: BP 130/84; PULSE 77; TEMP 96.9
== END 2020-10-24 12:00 | disposition home or self-care (01) ==
LOC: FASU-ENDO 08:45
PROVIDERS: ATTEND Internal Medicine Gastroenterology
PROC: 0DB78ZX Excision of Stomach, Pylorus, Via Natural or Artificial Opening Endoscopic, Diagnostic (ICD-10-PCS; 2020-10-24)
PROC: 0DB48ZX Excision of Esophagogastric Junction, Via Natural or Artificial Opening Endoscopic, Diagnostic (ICD-10-PCS; 2020-10-24)
PROC: 0DB98ZX Excision of Duodenum, Via Natural or Artificial Opening Endoscopic, Diagnostic (ICD-10-PCS; principal; 2020-10-24 10:24)
DX: K31.89 Other diseases of stomach and duodenum (principal); K22.8 Other specified diseases of esophagus; R10.13 Epigastric pain
CPT/HCPCS: 88305-TC; 88342-TC

== ENCOUNTER 2021-01-10 13:40 | Emergency (ER) | payer OTHER ==
[2021-01-10 13:50] VITALS: BP 117/76; PULSE 77; TEMP 98.1; BMI 29.0
[2021-01-10 16:49] LABS: BASO % 0.3 % (0-2.0); EOS % 0.6 % (0-4.5); HEMATOCRIT 39.1 % (32.4-45.2); HEMOGLOBIN 12.7 GM/dL (10.7-15.3); LYMPH % 31.3 % (8-40); MCH 26.7 pg (25.7-33.7); MCHC 32.5 g/dl (32.0-36.0); MEAN CELL VOLUME 81.9 fl (80-96); MEAN PLT VOLUME 8.1 fl (7.5-11.1); MONO % 6.2 % (3.8-10.2); NEUT % 61.6 % (42.8-82.8); PLATELET COUNT 222 10^3/uL (134-434); RBC 4.77 M/mm3 (3.60-5.2); RDW 13.9 % (11.6-15.6); WHITE BLOOD COUNT 10.6 K/mm3 (4.0-10.0)
[2021-01-10 16:53] LABS: EPI CELLS 21 /uL (0-25.1); HYALINE CASTS 5 /uL (0-3.1); PH,URINE 7.5 (5.0-8.0); URINE APPEARANCE CLEAR; URINE BACTERIA 95 /uL (0-1359); URINE BILIRUBIN NEGATIVE (NEGATIVE); URINE COLOR DK YELLOW; URINE GLUCOSE (UA) NEGATIVE (NEGATIVE); URINE KETONE TRACE (NEGATIVE); URINE LEUK ESTERASE 1+ (NEGATIVE); URINE NITRITE NEGATIVE (NEGATIVE); URINE PROTEIN TRACE (NEGATIVE); URINE RBC 27 /uL (0-23.9); URINE UROBILINOGEN 0.2 mg/dL (0.2-1.0); URINE WBC 49 /uL (0-25.8)
[2021-01-10 17:07] LABS: CHLORIDE 106 mmol/L (98-107); SODIUM 141 mmol/L (136-145)
[2021-01-10 17:08] LABS: CALCIUM 9.7 mg/dL (8.5-10.1)
[2021-01-10 17:09] LABS: ALBUMIN 4.1 g/dl (3.4-5.0); ANION GAP 6 MMOL/L (8-16); BLOOD UREA NITROGEN 21.3 mg/dL (7-18); CO2 29 mmol/L (21-32)
[2021-01-10 17:10] LABS: GLUCOSE,RANDOM 78 mg/dL (74-106); LIPASE 125 U/L (73-393)
[2021-01-10 17:12] LABS: CREATININE 1.3 mg/dL (0.55-1.3); SGOT/AST 53 U/L (15-37); SGPT/ALT 26 U/L (13-61)
[2021-01-10 17:14] LABS: BILIRUBIN,TOTAL 0.6 mg/dL (0.2-1)
[2021-01-10 17:15] LABS: ALK PHOS 75 U/L (45-117)
[2021-01-10] MEDS ORDERED: CEPHALEXIN MONOHYDRATE 250 MG CAPSULE (FP) PO ONE (17:52)
[2021-01-10] MEDS ORDERED: CEPHALEXIN MONOHYDRATE 250 MG CAPSULE (FP) ONE (17:54)
== END 2021-01-10 18:59 | disposition home or self-care (01) ==
LOC: JER 13:40
DX: R10.30 Lower abdominal pain, unspecified (principal)
CPT/HCPCS: 36415; 71046-TC-FY; 80053; 81003; 83690; 84484; 85025; 87086; 87186; 93005; 93010; 99284-25

== ENCOUNTER 2021-04-10 10:02 | Day surgery (SDC) | payer OTHER ==
[2021-04-08 15:48] VITALS: BMI 28.1
[2021-04-10] MEDS ORDERED: ETOMIDATE 20 MG/10 ML AMPUL IVPUSH ONE (11:33)
[2021-04-10] MEDS ORDERED: PROPOFOL 20 ML ONE ×2 (11:33→11:34)
[2021-04-10] MEDS ORDERED: LIDOCAINE HCL/PF 2% SDV 5ML VIAL ONE (11:34)
[2021-04-10 12:46] VITALS: PULSE 70
[2021-04-10 13:49] VITALS: BP 148/84; TEMP 97.8
== END 2021-04-10 13:41 | disposition home or self-care (01) ==
LOC: FASU-ENDO 10:02
PROVIDERS: ATTEND Internal Medicine Gastroenterology
PROC: 0DBL8ZX Excision of Transverse Colon, Via Natural or Artificial Opening Endoscopic, Diagnostic (ICD-10-PCS; 2021-04-10)
PROC: 0DBM8ZX Excision of Descending Colon, Via Natural or Artificial Opening Endoscopic, Diagnostic (ICD-10-PCS; 2021-04-10)
PROC: 0DBK8ZX Excision of Ascending Colon, Via Natural or Artificial Opening Endoscopic, Diagnostic (ICD-10-PCS; principal; 2021-04-10 11:55)
DX: R19.7 Diarrhea, unspecified (principal); K64.1 Second degree hemorrhoids; K57.30 Diverticulosis of large intestine without perforation or abscess without bleeding

== ENCOUNTER 2021-07-29 15:36 | Inpatient (IN) | payer OTHER ==
[2021-07-29] MEDS ORDERED: FAMOTIDINE 20 MG/50 ML IVPB 20 MG/50 ML MG IVPB ONE ×2 (17:45→17:58)
[2021-07-29] MEDS ORDERED: MAG HYDROX/AL HYDROX/SIMETH 30 ML UNIT-DOSE CUP PO ONE (17:45)
[2021-07-29] MEDS ORDERED: METOCLOPRAMIDE HCL INJECTION 10 MG/2 ML VIAL IVPB ONE (17:45)
[2021-07-29] MEDS ORDERED: MAG HYDROX/AL HYDROX/SIMETH 30 ML UNIT-DOSE CUP ONE (17:58)
[2021-07-29 18:10] LABS: BASO % 0.5 % (0-2.0); EOS % 0.6 % (0-4.5); HEMATOCRIT 36.3 % (32.4-45.2); LYMPH % 38.1 % (8-40); MCH 27.2 pg (25.7-33.7); MCHC 33.2 g/dl (32.0-36.0); MEAN CELL VOLUME 81.9 fl (80-96); MEAN PLT VOLUME 8.1 fl (7.5-11.1); MONO % 6.6 % (3.8-10.2); NEUT % 54.2 % (42.8-82.8); PLATELET COUNT 240 10^3/uL (134-434); RBC 4.43 M/mm3 (3.60-5.2); RDW 13.1 % (11.6-15.6); WHITE BLOOD COUNT 11.6 K/mm3 (4.0-10.0)
[2021-07-29] MEDS ORDERED: METOCLOPRAMIDE HCL INJECTION 10 MG/2 ML VIAL ONE (18:15)
[2021-07-29 18:16] LABS: INR 1.06 (0.83-1.09); PROTHROMBIN TIME (PATIENT) 12.2 SEC (9.7-13.0)
[2021-07-29 18:19] LABS: ACTIVATED PTT 30.9 SECONDS (25.2-36.5)
[2021-07-29 18:30] LABS: CHLORIDE 107 mmol/L (98-107); SODIUM 142 mmol/L (136-145)
[2021-07-29 18:32] LABS: ANION GAP 10 MMOL/L (8-16); CALCIUM 10.2 mg/dL (8.5-10.1); CO2 25 mmol/L (21-32); GLUCOSE,RANDOM 86 mg/dL (74-106)
[2021-07-29 18:33] LABS: BLOOD UREA NITROGEN 24.1 mg/dL (7-18)
[2021-07-29 18:35] LABS: SGPT/ALT 18 U/L (13-61)
[2021-07-29 18:36] LABS: CREATININE 1.3 mg/dL (0.55-1.3); SGOT/AST 16 U/L (15-37)
[2021-07-29 18:37] LABS: BILIRUBIN,TOTAL 0.4 mg/dL (0.2-1); TOT PROT 7.3 g/dl (6.4-8.2)
[2021-07-29 18:38] LABS: ALK PHOS 68 U/L (45-117)
[2021-07-29] MEDS ORDERED: SUCRALFATE 1 GM TABLET (FP) PO ONE (19:14)
[2021-07-29] MEDS ORDERED: SUCRALFATE 1 GM TABLET (FP) ONE (19:27)
[2021-07-29 19:34] LABS: EPI CELLS 7 /uL (0-25.1); HYALINE CASTS 0 /uL (0-3.1); PH,URINE >= 9.0 (5.0-8.0); URINE APPEARANCE CLEAR; URINE BACTERIA 18 /uL (0-1359); URINE BILIRUBIN NEGATIVE (NEGATIVE); URINE COLOR YELLOW; URINE GLUCOSE (UA) NEGATIVE (NEGATIVE); URINE KETONE NEGATIVE (NEGATIVE); URINE LEUK ESTERASE 1+ (NEGATIVE); URINE NITRITE NEGATIVE (NEGATIVE); URINE PROTEIN NEGATIVE (NEGATIVE); URINE RBC 9 /uL (0-23.9); URINE UROBILINOGEN 0.2 mg/dL (0.2-1.0); URINE WBC 43 /uL (0-25.8)
[2021-07-29 19:56] LABS: LIPASE 161 U/L (73-393)
[2021-07-29] MEDS ORDERED: TRIMETHOBENZAMIDE HCL 300 MG CAPSULE PO PRN (22:54)
[2021-07-29] MEDS ORDERED: PATIENT'S OWN MEDICATION (NON-FORMULARY) (Trazodone Hcl [Trazodone Hcl] 150 MG Tablet) PO SCH (23:15)
[2021-07-30] MEDS ORDERED: ACETAMINOPHEN 325 MG TABLET (FP) ONE (00:26)
[2021-07-30] MEDS: AMPICILLIN NA/SULBACTAM NA 3 GM in SODIUM CHLORIDE 100 ML IVPB SCH ×5 (00:32→18:38)
[2021-07-30] MEDS: SODIUM CHLORIDE 1,000 ML IV SCH ×3 (00:32→22:50)
[2021-07-30] MEDS: ACETAMINOPHEN 325 MG TABLET (FP) PO PRN ×2 (00:33→22:26)
[2021-07-30] MEDS: traZODone HCL 50 MG TABLET (FP) PO SCH ×2 (00:33→22:10)
[2021-07-30] MEDS ORDERED: ZOLPIDEM TARTRATE 5 MG TABLET ONE (01:41)
[2021-07-30] MEDS: INSULIN SLIDING SCALE (NOVOLOG) 1 VIAL SQ SCH ×4 (07:55→22:20)
[2021-07-30 08:56] LABS: HEMATOCRIT 36.3 % (32.4-45.2); HEMOGLOBIN 11.6 GM/dL (10.7-15.3); MEAN CELL VOLUME 84.3 fl (80-96); MEAN PLT VOLUME 7.8 fl (7.5-11.1); PLATELET COUNT 217 10^3/uL (134-434); RBC 4.31 M/mm3 (3.60-5.2); RDW 13.1 % (11.6-15.6); WHITE BLOOD COUNT 6.7 K/mm3 (4.0-10.0)
[2021-07-30 09:01] LABS: ALBUMIN 3.5 g/dl (3.4-5.0); BLOOD UREA NITROGEN 19.2 mg/dL (7-18); MAGNESIUM 2.1 mg/dL (1.8-2.4)
[2021-07-30 09:02] LABS: CREATININE 1.1 mg/dL (0.55-1.3); PHOSPHOROUS 4.3 mg/dL (2.5-4.9)
[2021-07-30 09:03] LABS: TOT PROT 6.4 g/dl (6.4-8.2)
[2021-07-30 09:04] LABS: BILIRUBIN,TOTAL 0.5 mg/dL (0.2-1)
[2021-07-30] MEDS: PARoxetine HCL 20 MG TABLET PO SCH (09:52)
[2021-07-30] MEDS: LISINOPRIL 10 MG TABLET PO SCH (09:52)
[2021-07-30] MEDS: ASPIRIN 81 MG CHEWABLE TABLETS PO SCH (09:52)
[2021-07-30] MEDS: MEMANTINE HCL 5 MG TABLET (UD) PO SCH ×2 (09:52→22:14)
[2021-07-30] MEDS: ASCORBIC ACID 500 MG TABLET (FP) PO SCH (09:52)
[2021-07-30] MEDS: ENOXAPARIN NA (PORCINE) 40 MG/0.4 ML DISP.SYRIN SQ SCH (09:52)
[2021-07-30] MEDS: FERROUS SO4 325 MG TABLET (FP) PO SCH (09:52)
[2021-07-30] MEDS ORDERED: PANTOPRAZOLE SODIUM 40 MG VIAL IVPUSH SCH (10:00)
[2021-07-30] MEDS ORDERED: CRANBERRY 500 MG PO SCH (10:00)
[2021-07-30] MEDS ORDERED: PATIENT'S OWN MEDICATION (NON-FORMULARY) (Mirabegron [Myrbetriq] 25 MG Tab.Er.24h) PO SCH (10:00)
[2021-07-30] MEDS: ARTIFICIAL TEARS (POLYVINYL ALCOHOL) OPTH DROPS OU SCH (13:05)
[2021-07-30] MEDS: FLUTICASONE PROP 0.05% 16 GM NASAL SPRAY NS SCH (13:06)
[2021-07-30] MEDS: DICYCLOMINE HCL 10 MG CAPSULE PO SCH ×2 (13:06→22:51)
[2021-07-30] MEDS: PANTOPRAZOLE 40 MG TABLET PO SCH (13:14)
[2021-07-30] MEDS ORDERED: SODIUM CHLORIDE 100 ML IVPB ONE ×2 (13:42→18:36)
[2021-07-30] MEDS ORDERED: AMPICILLIN NA/SULBACTAM NA 3 GM VIAL ONE ×2 (13:42→18:35)
[2021-07-30] MEDS ORDERED: ZOLPIDEM TARTRATE 5 MG TABLET PO PRN (22:00)
[2021-07-30] MEDS: POLYETHYLENE GLYCOL (HEALTHYLAX) 3350 17 GM PACKET PO SCH (22:10)
[2021-07-30] MEDS: MELATONIN 5 MG TABLETS PO SCH (22:14)
[2021-07-30] MEDS: ATORVASTATIN CA 80 MG TABLET (FP) PO SCH (22:14)
[2021-07-30] MEDS: DONEPEZIL HCL 10 MG TABLET (FP) PO SCH (22:23)
[2021-07-31] MEDS: AMPICILLIN NA/SULBACTAM NA 3 GM in SODIUM CHLORIDE 100 ML IVPB SCH ×4 (01:45→21:08)
[2021-07-31] MEDS ORDERED: AMPICILLIN NA/SULBACTAM NA 3 GM VIAL ONE ×5 (02:11→20:53)
[2021-07-31] MEDS ORDERED: SODIUM CHLORIDE 100 ML IVPB ONE ×4 (02:12→20:53)
[2021-07-31] MEDS: ACETAMINOPHEN 1000 MG/100 ML BAG IVPB ONE ×2 (02:46→04:26)
[2021-07-31] MEDS ORDERED: ACETAMINOPHEN INJECTION 100 ML IVPB ONE (03:34)
[2021-07-31] MEDS ORDERED: traMADol HCL 50 MG TABLET PO ONE (05:34)
[2021-07-31] MEDS: INSULIN SLIDING SCALE (NOVOLOG) 1 VIAL SQ SCH ×4 (06:50→21:24)
[2021-07-31] MEDS: ASCORBIC ACID 500 MG TABLET (FP) PO SCH (09:29)
[2021-07-31] MEDS: POLYETHYLENE GLYCOL (HEALTHYLAX) 3350 17 GM PACKET PO SCH ×2 (09:29→21:09)
[2021-07-31] MEDS: PARoxetine HCL 20 MG TABLET PO SCH (09:29)
[2021-07-31] MEDS: ENOXAPARIN NA (PORCINE) 40 MG/0.4 ML DISP.SYRIN SQ SCH (09:29)
[2021-07-31] MEDS: ASPIRIN 81 MG CHEWABLE TABLETS PO SCH (09:29)
[2021-07-31] MEDS: FERROUS SO4 325 MG TABLET (FP) PO SCH (09:29)
[2021-07-31] MEDS: MEMANTINE HCL 5 MG TABLET (UD) PO SCH ×2 (09:29→21:07)
[2021-07-31] MEDS: PANTOPRAZOLE 40 MG TABLET PO SCH (09:29)
[2021-07-31] MEDS: DICYCLOMINE HCL 10 MG CAPSULE PO SCH ×2 (09:30→21:08)
[2021-07-31] MEDS: FLUTICASONE PROP 0.05% 16 GM NASAL SPRAY NS SCH (09:31)
[2021-07-31] MEDS: ARTIFICIAL TEARS (POLYVINYL ALCOHOL) OPTH DROPS OU SCH (09:31)
[2021-07-31] MEDS: LISINOPRIL 10 MG TABLET PO SCH (09:31)
[2021-07-31 09:44] LABS: BASO % 0.5 % (0-2.0); EOS % 0.1 % (0-4.5); HEMATOCRIT 35.9 % (32.4-45.2); HEMOGLOBIN 11.4 GM/dL (10.7-15.3); LYMPH % 34.8 % (8-40); MCH 26.7 pg (25.7-33.7); MCHC 31.8 g/dl (32.0-36.0); MEAN PLT VOLUME 7.8 fl (7.5-11.1); MONO % 4.8 % (3.8-10.2); NEUT % 59.8 % (42.8-82.8); PLATELET COUNT 225 10^3/uL (134-434); RBC 4.27 M/mm3 (3.60-5.2); RDW 13.3 % (11.6-15.6); WHITE BLOOD COUNT 7.1 K/mm3 (4.0-10.0)
[2021-07-31 10:00] LABS: CHLORIDE 109 mmol/L (98-107); SODIUM 141 mmol/L (136-145)
[2021-07-31 10:06] LABS: ANION GAP 8 MMOL/L (8-16); CO2 25 mmol/L (21-32); GLUCOSE,RANDOM 142 mg/dL (74-106)
[2021-07-31 10:07] LABS: BLOOD UREA NITROGEN 16.8 mg/dL (7-18)
[2021-07-31 10:10] LABS: CALCIUM 9.6 mg/dL (8.5-10.1); CREATININE 1.2 mg/dL (0.55-1.3)
[2021-07-31] MEDS: ACETAMINOPHEN 325 MG TABLET (FP) PO PRN ×2 (12:26→20:57)
[2021-07-31] MEDS: MAG HYDROX/AL HYDROX/SIMETH 30 ML UNIT-DOSE CUP PO PRN (12:28)
[2021-07-31] MEDS: ATORVASTATIN CA 80 MG TABLET (FP) PO SCH (21:07)
[2021-07-31] MEDS: MELATONIN 5 MG TABLETS PO SCH (21:08)
[2021-07-31] MEDS: traZODone HCL 50 MG TABLET (FP) PO SCH (21:08)
[2021-07-31] MEDS: DONEPEZIL HCL 10 MG TABLET (FP) PO SCH (21:08)
[2021-08-01] MEDS ORDERED: AMPICILLIN NA/SULBACTAM NA 3 GM VIAL ONE ×3 (03:09→13:39)
[2021-08-01] MEDS ORDERED: SODIUM CHLORIDE 100 ML IVPB ONE ×3 (03:09→13:39)
[2021-08-01] MEDS: AMPICILLIN NA/SULBACTAM NA 3 GM in SODIUM CHLORIDE 100 ML IVPB SCH ×3 (03:15→13:44)
[2021-08-01] MEDS: ACETAMINOPHEN 325 MG TABLET (FP) PO PRN (07:05)
[2021-08-01] MEDS: INSULIN SLIDING SCALE (NOVOLOG) 1 VIAL SQ SCH ×2 (07:09→12:14)
[2021-08-01] MEDS: FERROUS SO4 325 MG TABLET (FP) PO SCH (12:09)
[2021-08-01] MEDS: LISINOPRIL 10 MG TABLET PO SCH (12:09)
[2021-08-01] MEDS: ASPIRIN 81 MG CHEWABLE TABLETS PO SCH (12:09)
[2021-08-01] MEDS: PARoxetine HCL 20 MG TABLET PO SCH (12:09)
[2021-08-01] MEDS: POLYETHYLENE GLYCOL (HEALTHYLAX) 3350 17 GM PACKET PO SCH (12:10)
[2021-08-01] MEDS: ENOXAPARIN NA (PORCINE) 40 MG/0.4 ML DISP.SYRIN SQ SCH (12:10)
[2021-08-01] MEDS: DICYCLOMINE HCL 10 MG CAPSULE PO SCH (12:11)
[2021-08-01] MEDS: MEMANTINE HCL 5 MG TABLET (UD) PO SCH (12:12)
[2021-08-01] MEDS: PANTOPRAZOLE 40 MG TABLET PO SCH (12:12)
[2021-08-01] MEDS: ASCORBIC ACID 500 MG TABLET (FP) PO SCH (12:13)
[2021-08-01] MEDS: ARTIFICIAL TEARS (POLYVINYL ALCOHOL) OPTH DROPS OU SCH (12:13)
[2021-08-01] MEDS: FLUTICASONE PROP 0.05% 16 GM NASAL SPRAY NS SCH (12:14)
[2021-08-01 12:17] VITALS: BMI 28.6
[2021-08-01] MEDS: MAG HYDROX/AL HYDROX/SIMETH 30 ML UNIT-DOSE CUP PO PRN (12:29)
[2021-08-01 14:07] VITALS: BP 128/80; PULSE 81; TEMP 98.2
[2021-08-02] MEDS ORDERED: ERGOCALCIFEROL (VIT D2) 50,000 UNIT (1.25 MG) CAPSULE PO SCH (10:00)
== END 2021-08-01 18:22 | DRG 392 ==
LOC: JER 15:36 → JERBED 21:17 → J6S 07-30 09:10
PROVIDERS: ADMIT Internal Medicine; ATTEND Internal Medicine
DX: K59.09 Other constipation (principal); I69.354 Hemiplegia and hemiparesis following cerebral infarction affecting left non-dominant side; K21.9 Gastro-esophageal reflux disease without esophagitis; I10 Essential (primary) hypertension; E78.5 Hyperlipidemia, unspecified; F41.8 Other specified anxiety disorders; N32.81 Overactive bladder; I27.20 Pulmonary hypertension, unspecified; F20.9 Schizophrenia, unspecified; K57.90 Diverticulosis of intestine, part unspecified, without perforation or abscess without bleeding; K64.9 Unspecified hemorrhoids; K29.90 Gastroduodenitis, unspecified, without bleeding; D25.9 Leiomyoma of uterus, unspecified; D64.9 Anemia, unspecified; G30.9 Alzheimer's disease, unspecified; F02.80 Dementia in other diseases classified elsewhere, unspecified severity, without behavioral disturbance, psychotic disturbance, mood disturbance, and anxiety; Z86.73 Personal history of transient ischemic attack (TIA), and cerebral infarction without residual deficits; Z87.11 Personal history of peptic ulcer disease; Z66 Do not resuscitate
CPT/HCPCS: 36415; 71046-TC-FY; 74177-TC; 80048; 80053; 81003; 82550; 82962; 83036; 83605; 83690; 83735; 84100; 84484; 85025; 85027; 85610; 85730; 86140; 87045; 87046; 87086; 87205; 87324; 87449; 93005; 93010; 93970-TC; 97116-GP; 97162-GP; 99285-25; C9803; Q9967; U0003; U0005

== ENCOUNTER 2021-08-02 16:50 | Emergency (ER) | payer OTHER ==
[2021-08-02 16:59] VITALS: TEMP 97.8; BMI 28.6
[2021-08-02] MEDS ORDERED: FAMOTIDINE 20 MG/50 ML IVPB 20 MG/50 ML MG IVPB ONE ×2 (18:10→18:13)
[2021-08-02] MEDS ORDERED: MAG HYDROX/AL HYDROX/SIMETH -MYLANTA- ORAL SUSPENSION PO ONE (18:10)
[2021-08-02] MEDS ORDERED: ACETAMINOPHEN 1000 MG/100 ML BAG IVPB ONE (18:10)
[2021-08-02] MEDS ORDERED: MAG HYDROX/AL HYDROX/SIMETH 30 ML UNIT-DOSE CUP ONE (18:13)
[2021-08-02] MEDS ORDERED: ACETAMINOPHEN INJECTION 100 ML IVPB ONE (18:13)
[2021-08-02 18:33] LABS: BASO % 0.4 % (0-2.0); EOS % 0.2 % (0-4.5); HEMATOCRIT 38.4 % (32.4-45.2); HEMOGLOBIN 12.5 GM/dL (10.7-15.3); MCHC 32.6 g/dl (32.0-36.0); MEAN CELL VOLUME 82.9 fl (80-96); MEAN PLT VOLUME 7.8 fl (7.5-11.1); MONO % 7.2 % (3.8-10.2); NEUT % 56.2 % (42.8-82.8); PLATELET COUNT 228 10^3/uL (134-434); RBC 4.63 M/mm3 (3.60-5.2); RDW 13.2 % (11.6-15.6)
[2021-08-02 18:40] LABS: INR 1.06 (0.83-1.09); PROTHROMBIN TIME (PATIENT) 12.2 SEC (9.7-13.0)
[2021-08-02 18:43] LABS: ACTIVATED PTT 30.9 SECONDS (25.2-36.5)
[2021-08-02 18:47] LABS: CHLORIDE 109 mmol/L (98-107); SODIUM 141 mmol/L (136-145)
[2021-08-02 18:50] LABS: ALBUMIN 4.2 g/dl (3.4-5.0); ANION GAP 9 MMOL/L (8-16); BLOOD UREA NITROGEN 24.4 mg/dL (7-18); CO2 24 mmol/L (21-32); LIPASE 194 U/L (73-393); MAGNESIUM 2.5 mg/dL (1.8-2.4)
[2021-08-02 18:51] LABS: GLUCOSE,RANDOM 95 mg/dL (74-106)
[2021-08-02 18:53] LABS: CREATININE 1.3 mg/dL (0.55-1.3); SGOT/AST 24 U/L (15-37); SGPT/ALT 25 U/L (13-61)
[2021-08-02 18:55] LABS: BILIRUBIN,TOTAL 0.4 mg/dL (0.2-1); TOT PROT 7.7 g/dl (6.4-8.2)
[2021-08-02 18:56] LABS: ALK PHOS 65 U/L (45-117)
[2021-08-02] MEDS ORDERED: morphine CARPU-JECT 4 MG/1 ML DISP.SYRIN IVPUSH ONE (21:49)
[2021-08-02] MEDS ORDERED: morphine SULFATE 4 MG/ML VIAL ONE (21:54)
[2021-08-02 22:18] LABS: PH,URINE 8.5 (5.0-8.0); URINE APPEARANCE CLEAR; URINE BILIRUBIN NEGATIVE (NEGATIVE); URINE COLOR YELLOW; URINE GLUCOSE (UA) NEGATIVE (NEGATIVE); URINE KETONE NEGATIVE (NEGATIVE); URINE LEUK ESTERASE NEGATIVE (NEGATIVE); URINE NITRITE NEGATIVE (NEGATIVE); URINE PROTEIN NEGATIVE (NEGATIVE); URINE UROBILINOGEN 0.2 mg/dL (0.2-1.0)
[2021-08-03] MEDS ORDERED: MAG HYDROX/AL HYDROX/SIMETH 30 ML UNIT-DOSE CUP PO ONE (05:42)
[2021-08-03] MEDS ORDERED: ACETAMINOPHEN 1000 MG/100 ML BAG IVPB ONE (05:42)
[2021-08-03] MEDS ORDERED: ACETAMINOPHEN INJECTION 100 ML IVPB ONE (05:43)
[2021-08-03] MEDS ORDERED: MAG HYDROX/AL HYDROX/SIMETH 30 ML UNIT-DOSE CUP ONE (05:45)
[2021-08-03 06:04] VITALS: BP 156/88; PULSE 89
== END 2021-08-03 06:17 ==
LOC: JER 16:50
PROC: 3E0333Z Introduction of Anti-inflammatory into Peripheral Vein, Percutaneous Approach (ICD-10-PCS; principal; 2021-08-02)
PROC: 3E0333Z Introduction of Anti-inflammatory into Peripheral Vein, Percutaneous Approach (ICD-10-PCS; 2021-08-02)
PROC: 3E033GC Introduction of Other Therapeutic Substance into Peripheral Vein, Percutaneous Approach (ICD-10-PCS; 2021-08-02)
PROC: 3E033NZ Introduction of Analgesics, Hypnotics, Sedatives into Peripheral Vein, Percutaneous Approach (ICD-10-PCS; 2021-08-02)
DX: R10.9 Unspecified abdominal pain (principal)
CPT/HCPCS: 36415; 71045-TC-FY; 74177-TC; 80053; 81003; 82550; 82553; 83690; 83735; 84484; 85025; 85610; 85730; 87040; 87086; 93005; 93010; 99285-25; C9803; J0131; Q9967; U0003; U0005

== ENCOUNTER 2021-10-23 09:20 | Day surgery (SDC) | payer OTHER ==
[~2021-10-23 09:20] MED LIST: BUPIVACAINE HCL/PF 0.5% (5 MG/ML) 30 ML VIAL IJ ONE; LIDOCAINE HCL 1%, 10 MG/ML (20ML VIAL) INF ONE
[2021-10-23 09:25] VITALS: BMI 28.6
[2021-10-23] MEDS ORDERED: ACETAMINOPHEN 1000 MG/100 ML BAG IVPB ONE (09:40)
[2021-10-23] MEDS ORDERED: SODIUM CHLORIDE 1,000 ML IV STA (09:40)
[2021-10-23] MEDS ORDERED: ACETAMINOPHEN INJECTION 100 ML IVPB ONE ×2 (10:03→18:17)
[2021-10-23 10:35] LABS: BASO % 0.3 % (0-2.0); EOS % 0.5 % (0-4.5); HEMATOCRIT 35.8 % (32.4-45.2); MCH 27.4 pg (25.7-33.7); MCHC 33.5 g/dl (32.0-36.0); MEAN CELL VOLUME 81.9 fl (80-96); MEAN PLT VOLUME 7.7 fl (7.5-11.1); MONO % 6.3 % (3.8-10.2); NEUT % 62.9 % (42.8-82.8); PLATELET COUNT 203 10^3/uL (134-434); RBC 4.37 M/mm3 (3.60-5.2); RDW 13.3 % (11.6-15.6)
[2021-10-23 10:40] LABS: INR 1.04 (0.83-1.09)
[2021-10-23 10:51] LABS: ALBUMIN 3.8 g/dl (3.4-5.0); BLOOD UREA NITROGEN 23.8 mg/dL (7-18); CALCIUM 9.8 mg/dL (8.5-10.1)
[2021-10-23 10:55] LABS: CREATININE 1.2 mg/dL (0.55-1.3)
[2021-10-23 10:56] LABS: BILIRUBIN,TOTAL 0.4 mg/dL (0.2-1)
[2021-10-23 11:24] LABS: PH,URINE >= 9.0 (5.0-8.0); URINE APPEARANCE CLEAR; URINE BILIRUBIN NEGATIVE (NEGATIVE); URINE COLOR YELLOW; URINE GLUCOSE (UA) NEGATIVE (NEGATIVE); URINE KETONE NEGATIVE (NEGATIVE); URINE LEUK ESTERASE NEGATIVE (NEGATIVE); URINE NITRITE NEGATIVE (NEGATIVE); URINE PROTEIN NEGATIVE (NEGATIVE); URINE UROBILINOGEN 0.2 mg/dL (0.2-1.0)
[2021-10-23] MEDS ORDERED: PIPERACILLIN/TAZOB 3.375 GM 3.375 GM in DEXTROSE 5%-WATER - 50 ML IVPB ONE (12:42)
[2021-10-23] MEDS ORDERED: PIPERACILLIN/TAZOB 3.375 GM 3.375 GM/50 ML BAG IVPB ONE (12:53)
[2021-10-23] MEDS ORDERED: DEXTROSE 5%-LACTATED RINGERS 1,000 ML IV SCH ×2 (13:00→19:51)
[2021-10-23] MEDS ORDERED: ONDANSETRON 4 MG/2 ML VIAL IM PRN (14:29)
[2021-10-23] MEDS ORDERED: SODIUM CHLORIDE 1,000 ML IV SCH ×2 (14:30→19:51)
[2021-10-23] MEDS ORDERED: ACETAMINOPHEN 1000 MG/100 ML BAG IVPB PRN ×2 (14:57→19:51)
[2021-10-23] MEDS ORDERED: PATIENT'S OWN MEDICATION (NON-FORMULARY) (Trazodone Hcl [Trazodone Hcl] 150 MG Tablet) PO SCH (15:30)
[2021-10-23] MEDS ORDERED: INSULIN SLIDING SCALE (NOVOLOG) 1 VIAL SQ SCH (16:30)
[2021-10-23] MEDS ORDERED: PROPOFOL 20 ML ONE (17:15)
[2021-10-23] MEDS ORDERED: ROCURONIUM BROMIDE 50 MG/5 ML SYRINGE ONE (17:16)
[2021-10-23] MEDS ORDERED: LIDOCAINE HCL 1%, 10 MG/ML (20ML VIAL) ONE (17:58)
[2021-10-23] MEDS ORDERED: BUPIVACAINE HCL/PF 0.25% (2.5MG/ML) 10 ML VIAL ONE ×3 (17:58→18:51)
[2021-10-23] MEDS ORDERED: BUPIVACAINE HCL/PF 0.5% (5MG/ML) 10 ML VIAL ONE (17:59)
[2021-10-23] MEDS ORDERED: ONDANSETRON 4 MG/2 ML VIAL IVPUSH PRN (18:15)
[2021-10-23] MEDS ORDERED: MIDAZOLAM HCL 2 MG/2 ML SINGLE DOSE VIAL ONE (18:26)
[2021-10-23] MEDS ORDERED: SUGAMMADEX SODIUM 200 MG/2 ML VIAL ONE (18:51)
[2021-10-23] MEDS ORDERED: NEOSTIGMINE METHYLSULFATE 0.5 MG/1 ML - 10 ML MDV ONE (18:55)
[2021-10-23] MEDS ORDERED: BUPIVACAINE HCL/PF 0.25% (2.5MG/ML) 10 ML VIAL IJ ONE ×2 (18:57)
[2021-10-23] MEDS ORDERED: traMADol HCL 50 MG TABLET PO PRN (19:51)
[2021-10-23] MEDS ORDERED: PIPERACILLIN/TAZOB 2.25 GM 2.25 GM in DEXTROSE 5%-WATER - 50 ML IVPB SCH (20:00)
[2021-10-23] MEDS: INSULIN SLIDING SCALE (NOVOLOG) 1 VIAL SQ SCH (21:46)
[2021-10-23] MEDS: MEMANTINE HCL 5 MG TABLET (UD) PO SCH (21:46)
[2021-10-23] MEDS ORDERED: MEMANTINE HCL 5 MG TABLET (UD) PO SCH (22:00)
[2021-10-23] MEDS ORDERED: QUEtiapine FUMARATE 25 MG TABLET PO SCH ×2 (22:00)
[2021-10-23] MEDS ORDERED: traZODone HCL 50 MG TABLET (FP) PO SCH ×2 (22:00)
[2021-10-23] MEDS ORDERED: ATORVASTATIN CA 80 MG TABLET (FP) PO SCH ×2 (22:00)
[2021-10-24] MEDS ORDERED: INSULIN (NOVOLOG) ASPART 100 UNITS/ML 10ML VIAL ONE (06:18)
[2021-10-24] MEDS: INSULIN SLIDING SCALE (NOVOLOG) 1 VIAL SQ SCH ×3 (06:27→17:13)
[2021-10-24 08:31] LABS: HEMATOCRIT 34.5 % (32.4-45.2); HEMOGLOBIN 11.5 GM/dL (10.7-15.3); MCH 27.5 pg (25.7-33.7); MCHC 33.4 g/dl (32.0-36.0); MEAN CELL VOLUME 82.5 fl (80-96); MEAN PLT VOLUME 7.4 fl (7.5-11.1); PLATELET COUNT 193 10^3/uL (134-434); RBC 4.18 M/mm3 (3.60-5.2); RDW 13.2 % (11.6-15.6); WHITE BLOOD COUNT 8.4 K/mm3 (4.0-10.0)
[2021-10-24 08:56] LABS: BLOOD UREA NITROGEN 12.8 mg/dL (7-18)
[2021-10-24 08:58] LABS: ALBUMIN 3.6 g/dl (3.4-5.0); CALCIUM 9.3 mg/dL (8.5-10.1); MAGNESIUM 2.3 mg/dL (1.8-2.4)
[2021-10-24 08:59] LABS: PHOSPHOROUS 3.4 mg/dL (2.5-4.9)
[2021-10-24 09:01] LABS: BILIRUBIN,TOTAL 0.9 mg/dL (0.2-1)
[2021-10-24 09:03] LABS: TOT PROT 6.5 g/dl (6.4-8.2)
[2021-10-24] MEDS ORDERED: LISINOPRIL 10 MG TABLET PO SCH ×2 (10:00)
[2021-10-24] MEDS ORDERED: OLOPATADINE HCL OU SCH (10:00)
[2021-10-24] MEDS ORDERED: PANTOPRAZOLE 40 MG TABLET PO SCH ×2 (10:00)
[2021-10-24] MEDS ORDERED: DONEPEZIL HCL 10 MG TABLET (FP) PO SCH ×2 (10:00)
[2021-10-24] MEDS ORDERED: PARoxetine HCL 20 MG TABLET PO SCH ×2 (10:00)
[2021-10-24] MEDS: MEMANTINE HCL 5 MG TABLET (UD) PO SCH (10:01)
[2021-10-24] MEDS ORDERED: PIPERACILLIN/TAZOB 2.25 GM 2.25 GM in DEXTROSE 5%-WATER - 50 ML IVPB SCH (13:00)
[2021-10-24 15:05] VITALS: BP 119/67; PULSE 81; TEMP 98.2
== END 2021-10-24 17:52 | disposition home or self-care (01) ==
LOC: JER 09:20 → JERBED 13:51 → SUATTDRO 13:51 → INTOOBSV 13:51 → UNDOADMOB 13:51 → JASUSAT 13:51 → JERBED 17:24 → J8W 17:24 → JASUSAT 10-24 17:52
PROVIDERS: ATTEND Internal Medicine
PROC: 0FT44ZZ Resection of Gallbladder, Percutaneous Endoscopic Approach (ICD-10-PCS; principal; 2021-10-23 18:00)
DX: K81.0 Acute cholecystitis (principal)
CPT/HCPCS: 36415; 76705-TC; 80053; 81003; 82962; 83690; 83735; 84100; 85025; 85027; 85610; 86850; 86900; 86901; 87040; 87086; 88304-TC; 93005; 93010; 94760; 99285-25; C9803-CS; U0003; U0005

== ENCOUNTER 2021-12-24 02:34 | Emergency (ER) | payer OTHER ==
[2021-12-24 03:08] VITALS: BMI 24.9
[2021-12-24] MEDS ORDERED: FAMOTIDINE 20 MG/50 ML IVPB 20 MG/50 ML MG IVPB ONE ×2 (04:04→04:29)
[2021-12-24] MEDS ORDERED: ONDANSETRON 4 MG/2 ML VIAL IVPB ONE (04:04)
[2021-12-24] MEDS ORDERED: ONDANSETRON 4 MG/2 ML VIAL ONE (04:29)
[2021-12-24 04:50] LABS: BASO % 0.4 % (0-2.0); EOS % 1.1 % (0-4.5); HEMOGLOBIN 11.9 GM/dL (10.7-15.3); LYMPH % 42.9 % (8-40); MCH 27.2 pg (25.7-33.7); MCHC 32.9 g/dl (32.0-36.0); MEAN CELL VOLUME 82.6 fl (80-96); MEAN PLT VOLUME 7.3 fl (7.5-11.1); MONO % 8.2 % (3.8-10.2); NEUT % 47.4 % (42.8-82.8); PLATELET COUNT 238 10^3/uL (134-434); RBC 4.36 M/mm3 (3.60-5.2); RDW 13.3 % (11.6-15.6); WHITE BLOOD COUNT 9.5 K/mm3 (4.0-10.0)
[2021-12-24 05:24] LABS: INR 1.01 (0.83-1.09); PROTHROMBIN TIME (PATIENT) 11.6 SEC (9.7-13.0)
[2021-12-24 05:24] LABS: EPI CELLS 4 /uL (0-25.1); HYALINE CASTS 1 /uL (0-3.1); PH,URINE 8.5 (5.0-8.0); URINE APPEARANCE TURBID; URINE BACTERIA 36 /uL (0-1359); URINE BILIRUBIN NEGATIVE (NEGATIVE); URINE COLOR YELLOW; URINE GLUCOSE (UA) NEGATIVE (NEGATIVE); URINE KETONE NEGATIVE (NEGATIVE); URINE LEUK ESTERASE 1+ (NEGATIVE); URINE NITRITE NEGATIVE (NEGATIVE); URINE PROTEIN NEGATIVE (NEGATIVE); URINE RBC 10 /uL (0-23.9); URINE UROBILINOGEN 0.2 mg/dL (0.2-1.0); URINE WBC 37 /uL (0-25.8)
[2021-12-24 05:28] LABS: ACTIVATED PTT 31.9 SECONDS (25.2-36.5)
[2021-12-24 05:55] LABS: ALBUMIN 3.7 g/dl (3.4-5.0); CALCIUM 9.2 mg/dL (8.5-10.1)
[2021-12-24 05:56] VITALS: TEMP 97.9
[2021-12-24 05:56] LABS: BLOOD UREA NITROGEN 23.2 mg/dL (7-18); MAGNESIUM 2.5 mg/dL (1.8-2.4)
[2021-12-24 06:00] LABS: BILIRUBIN,TOTAL 0.4 mg/dL (0.2-1)
[2021-12-24] MEDS ORDERED: PHENAZOPYRIDINE HCL 100 MG TABLET (FP) PO ONE (07:47)
[2021-12-24] MEDS ORDERED: PHENAZOPYRIDINE HCL 100 MG TABLET (FP) ONE (08:28)
[2021-12-24] MEDS ORDERED: CEFTRIAXONE 1 GM in DEXTROSE 5%-WATER - 100 ML IVPB ONE (08:39)
[2021-12-24 08:42] VITALS: PULSE 85
[2021-12-24] MEDS ORDERED: CEFTRIAXONE 1 GM/50 ML BAG ONE (10:14)
[2021-12-24 11:37] VITALS: BP 152/90
== END 2021-12-24 11:30 ==
LOC: JER 02:34
PROC: 3E03329 Introduction of Other Anti-infective into Peripheral Vein, Percutaneous Approach (ICD-10-PCS; principal; 2021-12-24)
PROC: 3E033GC Introduction of Other Therapeutic Substance into Peripheral Vein, Percutaneous Approach (ICD-10-PCS; 2021-12-24)
PROC: 3E033GC Introduction of Other Therapeutic Substance into Peripheral Vein, Percutaneous Approach (ICD-10-PCS; 2021-12-24)
DX: N39.0 Urinary tract infection, site not specified (principal); R10.13 Epigastric pain
CPT/HCPCS: 36415; 71045-TC-FY; 74177-TC; 80053; 81003; 83605; 83690; 83735; 84484; 85025; 85610; 85730; 87086; 93005; 93010; 99285-25; Q9967

== ENCOUNTER 2022-02-06 19:52 | Emergency (ER) | payer OTHER ==
[2022-02-06 20:21] VITALS: PULSE 80; TEMP 97.8; BMI 25.8
[2022-02-06] MEDS ORDERED: MAG HYDROX/AL HYDROX/SIMETH 30 ML UNIT-DOSE CUP PO ONE (20:40)
[2022-02-06] MEDS ORDERED: LIDOCAINE VISCOUS 2% ORAL/TOP 15 ML UNIT-DOSE CUP MM ONE (20:40)
[2022-02-06] MEDS ORDERED: DICYCLOMINE HCL 10 MG CAPSULE PO ONE (20:41)
[2022-02-06] MEDS ORDERED: MAG HYDROX/AL HYDROX/SIMETH 30 ML UNIT-DOSE CUP ONE (21:19)
[2022-02-06] MEDS ORDERED: LIDOCAINE 5% TOPICAL PATCH ONE (21:19)
[2022-02-06] MEDS ORDERED: DICYCLOMINE HCL 10 MG CAPSULE ONE (21:19)
[2022-02-06 21:46] LABS: BASO % 0.6 % (0-2.0); EOS % 0.8 % (0-4.5); HEMOGLOBIN 12.2 GM/dL (10.7-15.3); LYMPH % 38.5 % (8-40); MCH 26.8 pg (25.7-33.7); MEAN CELL VOLUME 81.2 fl (80-96); MEAN PLT VOLUME 7.1 fl (7.5-11.1); MONO % 7.6 % (3.8-10.2); NEUT % 52.5 % (42.8-82.8); PLATELET COUNT 231 10^3/uL (134-434); RBC 4.56 M/mm3 (3.60-5.2); RDW 13.5 % (11.6-15.6); WHITE BLOOD COUNT 9.9 K/mm3 (4.0-10.0)
[2022-02-06 22:10] LABS: ALBUMIN 3.7 g/dl (3.4-5.0); BLOOD UREA NITROGEN 23.2 mg/dL (7-18); CALCIUM 9.4 mg/dL (8.5-10.1)
[2022-02-06 22:13] LABS: CREATININE 1.1 mg/dL (0.55-1.3)
[2022-02-06 22:14] LABS: TOT PROT 7.2 g/dl (6.4-8.2)
[2022-02-06 22:15] LABS: BILIRUBIN,TOTAL 0.3 mg/dL (0.2-1)
[2022-02-07 00:45] VITALS: BP 143/97; RESP 16
== END 2022-02-07 01:12 | disposition home or self-care (01) ==
LOC: JER 19:52
DX: R10.13 Epigastric pain (principal); K21.9 Gastro-esophageal reflux disease without esophagitis
CPT/HCPCS: 36415; 80053; 82272; 83690; 84484; 85025; 93005; 93010; 99284-25

== ENCOUNTER 2022-03-22 13:15 | Inpatient (IN) | payer OTHER ==
[2022-03-22] MEDS ORDERED: ACETAMINOPHEN 1000 MG/100 ML BAG IVPB ONE (13:45)
[2022-03-22] MEDS ORDERED: ONDANSETRON 4 MG/2 ML VIAL IVPUSH ONE (13:45)
[2022-03-22] MEDS ORDERED: ONDANSETRON 4 MG/2 ML VIAL ONE (14:00)
[2022-03-22] MEDS ORDERED: ACETAMINOPHEN INJECTION 100 ML IVPB ONE (14:00)
[2022-03-22] MEDS ORDERED: MAG HYDROX/AL HYDROX/SIMETH 30 ML UNIT-DOSE CUP PO ONE (14:03)
[2022-03-22 14:09] LABS: EPI CELLS 4 /uL (0-25.1); HYALINE CASTS 2 /uL (0-3.1); PH,URINE 8.5 (5.0-8.0); URINE APPEARANCE CLEAR; URINE BACTERIA 3121 /uL (0-1359); URINE BILIRUBIN NEGATIVE (NEGATIVE); URINE COLOR YELLOW; URINE GLUCOSE (UA) NEGATIVE (NEGATIVE); URINE KETONE TRACE (NEGATIVE); URINE LEUK ESTERASE 2+ (NEGATIVE); URINE NITRITE NEGATIVE (NEGATIVE); URINE PROTEIN 1+ (NEGATIVE); URINE UROBILINOGEN 0.2 mg/dL (0.2-1.0); URINE WBC 305 /uL (0-25.8)
[2022-03-22] MEDS ORDERED: MAG HYDROX/AL HYDROX/SIMETH 30 ML UNIT-DOSE CUP ONE (14:20)
[2022-03-22 14:24] LABS: URINE RBC 58.5 /uL (0-23.9)
[2022-03-22 14:37] LABS: BASO % 0.4 % (0-2.0); EOS % 0.2 % (0-4.5); HEMATOCRIT 38.2 % (32.4-45.2); HEMOGLOBIN 12.8 GM/dL (10.7-15.3); LYMPH % 26.7 % (8-40); MCH 27.4 pg (25.7-33.7); MCHC 33.6 g/dl (32.0-36.0); MEAN CELL VOLUME 81.6 fl (80-96); MEAN PLT VOLUME 7.4 fl (7.5-11.1); MONO % 8.5 % (3.8-10.2); NEUT % 64.2 % (42.8-82.8); PLATELET COUNT 249 10^3/uL (134-434); RBC 4.68 M/mm3 (3.60-5.2); RDW 13.5 % (11.6-15.6); WHITE BLOOD COUNT 10.7 K/mm3 (4.0-10.0)
[2022-03-22 14:46] LABS: INR 1.06 (0.83-1.09); PROTHROMBIN TIME (PATIENT) 12.2 SEC (9.7-13.0)
[2022-03-22 14:49] LABS: ACTIVATED PTT 33.5 SECONDS (25.2-36.5)
[2022-03-22 14:52] LABS: ALBUMIN 4.1 g/dl (3.4-5.0); BLOOD UREA NITROGEN 20.6 mg/dL (7-18); CALCIUM 10.1 mg/dL (8.5-10.1); MAGNESIUM 2.6 mg/dL (1.8-2.4)
[2022-03-22 14:55] LABS: CREATININE 1.3 mg/dL (0.55-1.3)
[2022-03-22 14:56] LABS: BILIRUBIN,TOTAL 0.9 mg/dL (0.2-1); TOT PROT 7.8 g/dl (6.4-8.2)
[2022-03-22] MEDS ORDERED: CEFTRIAXONE 1,000 MG in DEXTROSE 5%-WATER - 50 ML IVPB ONE (15:57)
[2022-03-22] MEDS ORDERED: cefTRIAXone SODIUM 1 GM VIAL ONE (16:10)
[2022-03-22] MEDS ORDERED: morphine SULFATE 4 MG/ML VIAL ONE ×2 (16:24→19:12)
[2022-03-22] MEDS ORDERED: morphine CARPU-JECT 4 MG/1 ML DISP.SYRIN IVPUSH ONE ×2 (16:28→18:43)
[2022-03-22] MEDS ORDERED: PANTOPRAZOLE SODIUM 40 MG VIAL IVPUSH ONE (19:39)
[2022-03-22] MEDS ORDERED: PANTOPRAZOLE SODIUM 40 MG VIAL ONE (19:57)
[2022-03-22] MEDS ORDERED: ONDANSETRON 4 MG/2 ML VIAL IVPUSH PRN (20:00)
[2022-03-22] MEDS: SODIUM CHLORIDE 1,000 ML IV SCH (20:11)
[2022-03-22] MEDS ORDERED: MAG HYDROX/AL HYDROX/SIMETH 30 ML UNIT-DOSE CUP PO PRN (21:57)
[2022-03-22] MEDS ORDERED: DOCUSATE SODIUM 100 MG CAPSULE (FP) PO PRN (21:57)
[2022-03-22] MEDS ORDERED: TRIMETHOBENZAMIDE HCL 200MG/2ML INJ IM PRN (22:04)
[2022-03-22] MEDS: INSULIN SLIDING SCALE (NOVOLOG) 1 VIAL SQ SCH (22:18)
[2022-03-22] MEDS: ZOLPIDEM TARTRATE 5 MG TABLET PO PRN (22:26)
[2022-03-22] MEDS: MEMANTINE HCL 5 MG TABLET (UD) PO SCH (22:26)
[2022-03-22] MEDS: QUEtiapine FUMARATE 25 MG TABLET PO SCH (22:26)
[2022-03-22] MEDS: traZODone HCL 50 MG TABLET (FP) PO SCH (22:27)
[2022-03-22 22:55] VITALS: BMI 27.7
[2022-03-22] MEDS ORDERED: ARTIFICIAL TEARS (POLYVINYL ALCOHOL) OPTH DROPS OU PRN (23:05)
[2022-03-23] MEDS ORDERED: ACETAMINOPHEN 1000 MG/100 ML BAG IVPB PRN
[2022-03-23] MEDS: SODIUM CHLORIDE 1,000 ML IV SCH ×2 (06:16→18:46)
[2022-03-23] MEDS: DICYCLOMINE HCL 10 MG CAPSULE PO SCH ×2 (06:16→15:32)
[2022-03-23] MEDS: FAMOTIDINE 20 MG TABLET PO SCH ×2 (06:17→15:32)
[2022-03-23] MEDS: INSULIN SLIDING SCALE (NOVOLOG) 1 VIAL SQ SCH ×4 (06:17→21:30)
[2022-03-23 08:17] LABS: BASO % 0.6 % (0-2.0); EOS % 1.4 % (0-4.5); HEMATOCRIT 36.8 % (32.4-45.2); HEMOGLOBIN 12.3 GM/dL (10.7-15.3); LYMPH % 43.8 % (8-40); MCH 27.5 pg (25.7-33.7); MCHC 33.5 g/dl (32.0-36.0); MEAN CELL VOLUME 82.1 fl (80-96); MEAN PLT VOLUME 7.5 fl (7.5-11.1); MONO % 9.7 % (3.8-10.2); NEUT % 44.5 % (42.8-82.8); PLATELET COUNT 222 10^3/uL (134-434); RBC 4.49 M/mm3 (3.60-5.2); RDW 13.5 % (11.6-15.6); WHITE BLOOD COUNT 9.6 K/mm3 (4.0-10.0)
[2022-03-23 08:36] LABS: CALCIUM 9.4 mg/dL (8.5-10.1)
[2022-03-23 08:38] LABS: BLOOD UREA NITROGEN 17.4 mg/dL (7-18)
[2022-03-23 08:40] LABS: CREATININE 1.1 mg/dL (0.55-1.3); PHOSPHOROUS 4.1 mg/dL (2.5-4.9)
[2022-03-23 08:52] LABS: MAGNESIUM 2.9 mg/dL (1.8-2.4)
[2022-03-23] MEDS: ENOXAPARIN NA (PORCINE) 40 MG/0.4 ML DISP.SYRIN SQ SCH (09:07)
[2022-03-23] MEDS: PARoxetine HCL 20 MG TABLET PO SCH (09:07)
[2022-03-23] MEDS: MEMANTINE HCL 5 MG TABLET (UD) PO SCH ×2 (09:07→21:26)
[2022-03-23] MEDS: PANTOPRAZOLE 40 MG TABLET PO SCH (09:07)
[2022-03-23] MEDS: ASPIRIN COATED 81 MG TABLET.EC PO SCH (09:08)
[2022-03-23] MEDS: LISINOPRIL 10 MG TABLET PO SCH ×2 (09:08→21:27)
[2022-03-23] MEDS: FLUTICASONE PROP 0.05% 16 GM NASAL SPRAY NS SCH (09:08)
[2022-03-23] MEDS: DONEPEZIL HCL 5 MG TABLET (FP) PO SCH (09:08)
[2022-03-23] MEDS: ARTIFICIAL TEARS (POLYVINYL ALCOHOL) OPTH DROPS OU SCH ×2 (09:08→21:27)
[2022-03-23] MEDS: ASCORBIC ACID 500 MG TABLET (FP) PO SCH (09:08)
[2022-03-23] MEDS ORDERED: INSULIN (NOVOLOG) ASPART 100 UNITS/ML 10ML VIAL ONE (11:34)
[2022-03-23] MEDS: CEFTRIAXONE 1 GM in DEXTROSE 5%-WATER - 50 ML IVPB SCH (15:32)
[2022-03-23] MEDS: traZODone HCL 50 MG TABLET (FP) PO SCH (21:25)
[2022-03-23] MEDS: QUEtiapine FUMARATE 25 MG TABLET PO SCH (21:26)
[2022-03-23] MEDS: MELATONIN 5 MG TABLETS PO SCH (21:26)
[2022-03-23] MEDS: ATORVASTATIN CA 80 MG TABLET (FP) PO SCH (21:27)
[2022-03-23] MEDS: ZOLPIDEM TARTRATE 5 MG TABLET PO PRN (21:27)
[2022-03-24] MEDS ORDERED: ACETAMINOPHEN 325 MG TABLET (FP) PO PRN
[2022-03-24] MEDS: FAMOTIDINE 20 MG TABLET PO SCH ×2 (06:46→16:08)
[2022-03-24] MEDS: DICYCLOMINE HCL 10 MG CAPSULE PO SCH ×2 (06:46→16:08)
[2022-03-24] MEDS: INSULIN SLIDING SCALE (NOVOLOG) 1 VIAL SQ SCH ×4 (06:47→22:12)
[2022-03-24 09:20] LABS: BASO % 0.6 % (0-2.0); HEMATOCRIT 37.7 % (32.4-45.2); LYMPH % 35.6 % (8-40); MCH 26.4 pg (25.7-33.7); MCHC 31.8 g/dl (32.0-36.0); MEAN PLT VOLUME 7.6 fl (7.5-11.1); MONO % 9.2 % (3.8-10.2); NEUT % 51.6 % (42.8-82.8); PLATELET COUNT 228 10^3/uL (134-434); RBC 4.54 M/mm3 (3.60-5.2); RDW 13.4 % (11.6-15.6); WHITE BLOOD COUNT 7.1 K/mm3 (4.0-10.0)
[2022-03-24] MEDS: MEMANTINE HCL 5 MG TABLET (UD) PO SCH ×2 (09:38→22:11)
[2022-03-24] MEDS: LISINOPRIL 10 MG TABLET PO SCH ×2 (09:38→22:12)
[2022-03-24] MEDS: ASCORBIC ACID 500 MG TABLET (FP) PO SCH (09:38)
[2022-03-24] MEDS: ASPIRIN COATED 81 MG TABLET.EC PO SCH (09:38)
[2022-03-24] MEDS: PARoxetine HCL 20 MG TABLET PO SCH (09:38)
[2022-03-24] MEDS: ARTIFICIAL TEARS (POLYVINYL ALCOHOL) OPTH DROPS OU SCH ×2 (09:38→22:13)
[2022-03-24] MEDS: ENOXAPARIN NA (PORCINE) 40 MG/0.4 ML DISP.SYRIN SQ SCH (09:38)
[2022-03-24] MEDS: DONEPEZIL HCL 5 MG TABLET (FP) PO SCH (09:38)
[2022-03-24] MEDS: PANTOPRAZOLE 40 MG TABLET PO SCH (09:38)
[2022-03-24] MEDS: FLUTICASONE PROP 0.05% 16 GM NASAL SPRAY NS SCH (09:39)
[2022-03-24 09:45] LABS: CALCIUM 9.1 mg/dL (8.5-10.1)
[2022-03-24 09:46] LABS: BLOOD UREA NITROGEN 12.2 mg/dL (7-18)
[2022-03-24] MEDS: CEFTRIAXONE 1 GM in DEXTROSE 5%-WATER - 50 ML IVPB SCH (16:08)
[2022-03-24] MEDS: ATORVASTATIN CA 80 MG TABLET (FP) PO SCH (22:11)
[2022-03-24] MEDS: QUEtiapine FUMARATE 25 MG TABLET PO SCH (22:11)
[2022-03-24] MEDS: MELATONIN 5 MG TABLETS PO SCH (22:11)
[2022-03-24] MEDS: traZODone HCL 50 MG TABLET (FP) PO SCH (22:12)
[2022-03-24] MEDS: ZOLPIDEM TARTRATE 5 MG TABLET PO PRN (22:33)
[2022-03-25] MEDS: FAMOTIDINE 20 MG TABLET PO SCH ×2 (06:26→16:14)
[2022-03-25] MEDS: DICYCLOMINE HCL 10 MG CAPSULE PO SCH ×2 (06:26→16:15)
[2022-03-25] MEDS: SODIUM CHLORIDE 1,000 ML IV SCH ×2 (06:26→21:46)
[2022-03-25] MEDS: INSULIN SLIDING SCALE (NOVOLOG) 1 VIAL SQ SCH ×4 (06:34→21:55)
[2022-03-25] MEDS ORDERED: CEFUROXIME AXETIL 500 MG TABLET PO SCH (10:00)
[2022-03-25] MEDS: ENOXAPARIN NA (PORCINE) 40 MG/0.4 ML DISP.SYRIN SQ SCH (10:35)
[2022-03-25] MEDS: LISINOPRIL 10 MG TABLET PO SCH ×2 (10:36→21:47)
[2022-03-25] MEDS: CEFUROXIME AXETIL 500 MG TABLET PO SCH ×2 (10:36→21:47)
[2022-03-25] MEDS: DONEPEZIL HCL 5 MG TABLET (FP) PO SCH (10:36)
[2022-03-25] MEDS: MEMANTINE HCL 5 MG TABLET (UD) PO SCH ×2 (10:36→21:47)
[2022-03-25] MEDS: PARoxetine HCL 20 MG TABLET PO SCH (10:36)
[2022-03-25] MEDS: ASPIRIN COATED 81 MG TABLET.EC PO SCH (10:36)
[2022-03-25] MEDS: PANTOPRAZOLE 40 MG TABLET PO SCH (10:36)
[2022-03-25] MEDS: ASCORBIC ACID 500 MG TABLET (FP) PO SCH (10:36)
[2022-03-25] MEDS: FLUTICASONE PROP 0.05% 16 GM NASAL SPRAY NS SCH (10:37)
[2022-03-25] MEDS: ARTIFICIAL TEARS (POLYVINYL ALCOHOL) OPTH DROPS OU SCH ×2 (10:38→21:49)
[2022-03-25] MEDS ORDERED: CEFTRIAXONE 1 GM in DEXTROSE 5%-WATER - 50 ML IVPB SCH (16:00)
[2022-03-25] MEDS ORDERED: INSULIN (NOVOLOG) ASPART 100 UNITS/ML 10ML VIAL ONE (21:26)
[2022-03-25] MEDS: ZOLPIDEM TARTRATE 5 MG TABLET PO PRN (21:47)
[2022-03-25] MEDS: QUEtiapine FUMARATE 25 MG TABLET PO SCH (21:47)
[2022-03-25] MEDS: MELATONIN 5 MG TABLETS PO SCH (21:47)
[2022-03-25] MEDS: ATORVASTATIN CA 80 MG TABLET (FP) PO SCH (21:47)
[2022-03-25] MEDS: traZODone HCL 50 MG TABLET (FP) PO SCH (21:48)
[2022-03-26] MEDS: FAMOTIDINE 20 MG TABLET PO SCH ×2 (06:16→15:29)
[2022-03-26] MEDS: DICYCLOMINE HCL 10 MG CAPSULE PO SCH ×2 (06:17→15:29)
[2022-03-26] MEDS: INSULIN SLIDING SCALE (NOVOLOG) 1 VIAL SQ SCH ×2 (06:27→11:28)
[2022-03-26] MEDS: ENOXAPARIN NA (PORCINE) 40 MG/0.4 ML DISP.SYRIN SQ SCH (09:21)
[2022-03-26] MEDS: PARoxetine HCL 20 MG TABLET PO SCH (09:22)
[2022-03-26] MEDS: MEMANTINE HCL 5 MG TABLET (UD) PO SCH (09:22)
[2022-03-26] MEDS: ASCORBIC ACID 500 MG TABLET (FP) PO SCH (09:22)
[2022-03-26] MEDS: PANTOPRAZOLE 40 MG TABLET PO SCH (09:22)
[2022-03-26] MEDS: CEFUROXIME AXETIL 500 MG TABLET PO SCH (09:22)
[2022-03-26] MEDS: FLUTICASONE PROP 0.05% 16 GM NASAL SPRAY NS SCH (09:23)
[2022-03-26] MEDS: ASPIRIN COATED 81 MG TABLET.EC PO SCH (09:23)
[2022-03-26] MEDS: LISINOPRIL 10 MG TABLET PO SCH (09:23)
[2022-03-26] MEDS: DONEPEZIL HCL 5 MG TABLET (FP) PO SCH (09:23)
[2022-03-26] MEDS: ARTIFICIAL TEARS (POLYVINYL ALCOHOL) OPTH DROPS OU SCH (09:24)
[2022-03-26 10:46] VITALS: RESP 18
[2022-03-26 15:29] VITALS: BP 147/83; PULSE 69; TEMP 98.5
[2022-03-28] MEDS ORDERED: ERGOCALCIFEROL (VIT D2) 50,000 UNIT (1.25 MG) CAPSULE PO SCH (10:00)
== END 2022-03-26 17:50 | disposition home or self-care (01) | DRG 690 ==
LOC: JER 13:15 → JERBED 16:33 → J7W 21:51
PROVIDERS: ADMIT Internal Medicine; ATTEND Internal Medicine
DX: N39.0 Urinary tract infection, site not specified (principal); I10 Essential (primary) hypertension; E78.5 Hyperlipidemia, unspecified; K21.9 Gastro-esophageal reflux disease without esophagitis; F41.8 Other specified anxiety disorders; G47.00 Insomnia, unspecified; B96.20 Unspecified Escherichia coli [E. coli] as the cause of diseases classified elsewhere; E11.9 Type 2 diabetes mellitus without complications; F20.9 Schizophrenia, unspecified; Z66 Do not resuscitate; R32 Unspecified urinary incontinence; R30.0 Dysuria; R10.9 Unspecified abdominal pain; G30.9 Alzheimer's disease, unspecified; F02.80 Dementia in other diseases classified elsewhere, unspecified severity, without behavioral disturbance, psychotic disturbance, mood disturbance, and anxiety
CPT/HCPCS: 36415; 71046-TC-FY; 74177-TC; 80048; 80053; 81003; 82962; 83605; 83690; 83735; 84100; 84484; 85025; 85610; 85730; 87086; 87186; 93005; 93010; 97116-GP; 97161-GP; 99285-25; C9803-CS; Q9967; U0003; U0005

== ENCOUNTER 2022-03-30 16:21 | Observation (INO) | payer OTHER ==
[2022-03-30] MEDS ORDERED: ACETAMINOPHEN 1000 MG/100 ML BAG IVPB ONE (17:24)
[2022-03-30] MEDS ORDERED: FAMOTIDINE 20 MG TABLET PO ONE (17:24)
[2022-03-30] MEDS ORDERED: MAG HYDROX/AL HYDROX/SIMETH 30 ML UNIT-DOSE CUP PO ONE (17:24)
[2022-03-30] MEDS ORDERED: MAG HYDROX/AL HYDROX/SIMETH 30 ML UNIT-DOSE CUP ONE (17:46)
[2022-03-30] MEDS ORDERED: FAMOTIDINE 20 MG TABLET ONE (17:46)
[2022-03-30] MEDS ORDERED: SUCRALFATE 1 GM TABLET (FP) ONE (17:46)
[2022-03-30] MEDS ORDERED: ACETAMINOPHEN INJECTION 100 ML IVPB ONE (17:46)
[2022-03-30] MEDS ORDERED: SUCRALFATE 1 GM TABLET (FP) PO ONE (18:16)
[2022-03-30 19:31] LABS: BASO % 0.4 % (0-2.0); EOS % 1.1 % (0-4.5); HEMOGLOBIN 12.3 GM/dL (10.7-15.3); LYMPH % 34.4 % (8-40); MCH 26.4 pg (25.7-33.7); MCHC 32.3 g/dl (32.0-36.0); MEAN CELL VOLUME 81.7 fl (80-96); MEAN PLT VOLUME 7.9 fl (7.5-11.1); MONO % 7.3 % (3.8-10.2); NEUT % 56.8 % (42.8-82.8); PLATELET COUNT 252 10^3/uL (134-434); RBC 4.64 M/mm3 (3.60-5.2); RDW 13.2 % (11.6-15.6); WHITE BLOOD COUNT 9.7 K/mm3 (4.0-10.0)
[2022-03-30 19:35] LABS: EPI CELLS 5 /uL (0-25.1); HYALINE CASTS 1 /uL (0-3.1); URINE APPEARANCE CLOUDY; URINE BACTERIA 15 /uL (0-1359); URINE BILIRUBIN NEGATIVE (NEGATIVE); URINE COLOR YELLOW; URINE GLUCOSE (UA) NEGATIVE (NEGATIVE); URINE KETONE TRACE (NEGATIVE); URINE LEUK ESTERASE TRACE (NEGATIVE); URINE NITRITE NEGATIVE (NEGATIVE); URINE PROTEIN TRACE (NEGATIVE); URINE RBC 23 /uL (0-23.9); URINE UROBILINOGEN 0.2 mg/dL (0.2-1.0); URINE WBC 35 /uL (0-25.8)
[2022-03-30 19:56] LABS: ALBUMIN 3.8 g/dl (3.4-5.0); BLOOD UREA NITROGEN 20.2 mg/dL (7-18); CALCIUM 9.8 mg/dL (8.5-10.1)
[2022-03-30 20:01] LABS: BILIRUBIN,TOTAL 0.5 mg/dL (0.2-1); TOT PROT 7.1 g/dl (6.4-8.2)
[2022-03-30] MEDS ORDERED: morphine CARPU-JECT 2 MG/1 ML DISP.SYRIN IVPUSH ONE ×2 (20:13→21:54)
[2022-03-31] MEDS ORDERED: ACETAMINOPHEN 1000 MG/100 ML BAG IVPB PRN
[2022-03-31] MEDS ORDERED: MELATONIN 5 MG TABLETS PO ONE (02:47)
[2022-03-31] MEDS ORDERED: FAMOTIDINE 20 MG/50 ML IVPB 20 MG/50 ML MG IVPB ONE ×2 (08:25→09:00)
[2022-03-31] MEDS ORDERED: morphine CARPU-JECT 2 MG/1 ML DISP.SYRIN IVPUSH PRN (08:25)
[2022-03-31] MEDS ORDERED: ASPIRIN COATED 81 MG TABLET.EC ONE (08:59)
[2022-03-31] MEDS ORDERED: LISINOPRIL 10 MG TABLET ONE (08:59)
[2022-03-31] MEDS ORDERED: PANTOPRAZOLE 40 MG TABLET PO ONE (08:59)
[2022-03-31] MEDS ORDERED: DICYCLOMINE HCL 10 MG CAPSULE ONE (08:59)
[2022-03-31] MEDS: DICYCLOMINE HCL 10 MG CAPSULE PO SCH ×2 (09:07→22:29)
[2022-03-31] MEDS: LISINOPRIL 10 MG TABLET PO SCH ×2 (09:07→21:11)
[2022-03-31] MEDS: ASPIRIN COATED 81 MG TABLET.EC PO SCH (09:07)
[2022-03-31 09:46] LABS: BASO % 0.5 % (0-2.0); EOS % 1.1 % (0-4.5); HEMATOCRIT 35.7 % (32.4-45.2); LYMPH % 30.4 % (8-40); MCH 27.5 pg (25.7-33.7); MCHC 33.7 g/dl (32.0-36.0); MEAN CELL VOLUME 81.5 fl (80-96); MEAN PLT VOLUME 7.4 fl (7.5-11.1); MONO % 7.6 % (3.8-10.2); NEUT % 60.4 % (42.8-82.8); PLATELET COUNT 235 10^3/uL (134-434); RBC 4.38 M/mm3 (3.60-5.2); RDW 13.2 % (11.6-15.6); WHITE BLOOD COUNT 7.8 K/mm3 (4.0-10.0)
[2022-03-31] MEDS ORDERED: SUCRALFATE 1 GM TABLET (FP) PO SCH (10:00)
[2022-03-31] MEDS ORDERED: PANTOPRAZOLE 40 MG TABLET PO SCH (10:00)
[2022-03-31] MEDS: MEMANTINE HCL 5 MG TABLET (UD) PO SCH ×2 (10:02→21:11)
[2022-03-31 10:10] LABS: CALCIUM 9.5 mg/dL (8.5-10.1)
[2022-03-31 10:11] LABS: BLOOD UREA NITROGEN 16.4 mg/dL (7-18)
[2022-03-31 11:30] VITALS: RESP 18
[2022-03-31] MEDS ORDERED: ZOLPIDEM TARTRATE 5 MG TABLET PO PRN (14:07)
[2022-03-31 14:09] VITALS: BMI 25.4
[2022-03-31] MEDS: PANTOPRAZOLE SODIUM 40 MG VIAL IVPUSH SCH (21:12)
[2022-03-31] MEDS ORDERED: DOCUSATE SODIUM 100 MG CAPSULE (FP) PO SCH (22:00)
[2022-03-31] MEDS ORDERED: ATORVASTATIN CA 80 MG TABLET (FP) PO SCH (22:00)
[2022-03-31] MEDS ORDERED: QUEtiapine FUMARATE 25 MG TABLET PO SCH (22:00)
[2022-03-31] MEDS ORDERED: traZODone HCL 50 MG TABLET (FP) PO SCH (22:00)
[2022-03-31] MEDS ORDERED: DONEPEZIL HCL 10 MG TABLET (FP) PO SCH (22:00)
[2022-03-31] MEDS ORDERED: MELATONIN 5 MG TABLETS PO SCH (22:00)
[2022-04-01 09:05] VITALS: PULSE 83; TEMP 97.4
[2022-04-01] MEDS: LISINOPRIL 10 MG TABLET PO SCH (09:22)
[2022-04-01] MEDS: ASPIRIN COATED 81 MG TABLET.EC PO SCH (09:22)
[2022-04-01] MEDS: DICYCLOMINE HCL 10 MG CAPSULE PO SCH (09:22)
[2022-04-01] MEDS: MEMANTINE HCL 5 MG TABLET (UD) PO SCH (09:22)
[2022-04-01] MEDS: PANTOPRAZOLE SODIUM 40 MG VIAL IVPUSH SCH (09:22)
[2022-04-01 09:25] VITALS: BP 137/78
[2022-04-01] MEDS ORDERED: FAMOTIDINE 20 MG TABLET PO SCH (10:00)
== END 2022-04-01 14:07 | disposition home or self-care (01) ==
LOC: JER 16:21 → JERBED 21:51 → J6S 03-31 12:06
PROVIDERS: ADMIT Internal Medicine; ATTEND Internal Medicine
PROC: 3E033NZ Introduction of Analgesics, Hypnotics, Sedatives into Peripheral Vein, Percutaneous Approach (ICD-10-PCS; principal; 2022-03-30)
PROC: 3E033GC Introduction of Other Therapeutic Substance into Peripheral Vein, Percutaneous Approach (ICD-10-PCS; 2022-03-30)
PROC: 3E033NZ Introduction of Analgesics, Hypnotics, Sedatives into Peripheral Vein, Percutaneous Approach (ICD-10-PCS; 2022-03-30)
DX: E78.5 Hyperlipidemia, unspecified (principal); E11.9 Type 2 diabetes mellitus without complications; K21.00 Gastro-esophageal reflux disease with esophagitis, without bleeding; I27.20 Pulmonary hypertension, unspecified; K27.9 Peptic ulcer, site unspecified, unspecified as acute or chronic, without hemorrhage or perforation; F20.9 Schizophrenia, unspecified; F41.8 Other specified anxiety disorders; R19.7 Diarrhea, unspecified; Z86.73 Personal history of transient ischemic attack (TIA), and cerebral infarction without residual deficits; F03.90 Unspecified dementia, unspecified severity, without behavioral disturbance, psychotic disturbance, mood disturbance, and anxiety; R82.998 Other abnormal findings in urine
CPT/HCPCS: 36415; 71046-TC-FY; 74177-TC; 80048; 80053; 81003; 83690; 84484; 85025; 87086; 93005; 93010; 96365; 96375; 96376; 99285-25; C9803-CS; G0378; Q9967; U0003; U0005

== ENCOUNTER 2022-04-07 19:15 | Emergency (ER) | payer OTHER ==
[2022-04-07 20:19] VITALS: BMI 25.8
[2022-04-07] MEDS ORDERED: morphine SULFATE 4 MG/ML VIAL IVPUSH ONE (21:00)
[2022-04-07] MEDS ORDERED: FAMOTIDINE 20 MG/50 ML IVPB 20 MG/50 ML MG IVPB ONE ×2 (21:00→21:29)
[2022-04-07] MEDS ORDERED: MAG HYDROX/AL HYDROX/SIMETH -MYLANTA- ORAL SUSPENSION PO ONE (21:00)
[2022-04-07] MEDS ORDERED: MAG HYDROX/AL HYDROX/SIMETH 30 ML UNIT-DOSE CUP ONE (21:29)
[2022-04-07 21:55] LABS: BASO % 0.4 % (0-2.0); EOS % 0.6 % (0-4.5); HEMOGLOBIN 12.6 GM/dL (10.7-15.3); LYMPH % 27.7 % (8-40); MCH 26.5 pg (25.7-33.7); MCHC 32.3 g/dl (32.0-36.0); MEAN PLT VOLUME 7.7 fl (7.5-11.1); MONO % 13.4 % (3.8-10.2); NEUT % 57.9 % (42.8-82.8); PLATELET COUNT 237 10^3/uL (134-434); RBC 4.76 M/mm3 (3.60-5.2); RDW 13.4 % (11.6-15.6)
[2022-04-07 22:01] LABS: EPI CELLS >36 /uL (0-25.1); HYALINE CASTS 7 /uL (0-3.1); URINE APPEARANCE CLEAR; URINE BACTERIA 382 /uL (0-1359); URINE BILIRUBIN NEGATIVE (NEGATIVE); URINE COLOR DK YELLOW; URINE GLUCOSE (UA) NEGATIVE (NEGATIVE); URINE KETONE 1+ (NEGATIVE); URINE LEUK ESTERASE 2+ (NEGATIVE); URINE NITRITE NEGATIVE (NEGATIVE); URINE PROTEIN 2+ (NEGATIVE); URINE RBC 102 /uL (0-23.9); URINE WBC 57 /uL (0-25.8)
[2022-04-07] MEDS ORDERED: CEFTRIAXONE 1 GM in DEXTROSE 5%-WATER - 100 ML IVPB ONE (22:02)
[2022-04-07 22:17] LABS: BLOOD UREA NITROGEN 22.1 mg/dL (7-18)
[2022-04-07] MEDS ORDERED: CEFTRIAXONE 1 GM/50 ML BAG ONE (22:17)
[2022-04-07 22:20] LABS: CREATININE 1.2 mg/dL (0.55-1.3)
[2022-04-07 22:21] LABS: BILIRUBIN,TOTAL 0.8 mg/dL (0.2-1)
[2022-04-07 22:22] LABS: TOT PROT 7.8 g/dl (6.4-8.2)
[2022-04-07] MEDS ORDERED: POTASSIUM CHLORIDE ORAL LIQUID 20 MEQ/15 ML PO ONE (22:34)
[2022-04-07] MEDS ORDERED: ACETAMINOPHEN 1000 MG/100 ML BAG IVPB ONE (22:45)
[2022-04-07] MEDS ORDERED: POTASSIUM CHLORIDE ORAL LIQUID 20 MEQ/15 ML ONE (22:45)
[2022-04-07] MEDS ORDERED: PANTOPRAZOLE SODIUM 40 MG VIAL IVPUSH ONE (22:45)
[2022-04-07] MEDS ORDERED: SUCRALFATE 1 GM TABLET (FP) PO ONE (22:45)
[2022-04-07] MEDS ORDERED: SUCRALFATE 1 GM TABLET (FP) ONE (22:54)
[2022-04-07] MEDS ORDERED: PANTOPRAZOLE SODIUM 40 MG VIAL ONE (22:55)
[2022-04-07] MEDS ORDERED: ACETAMINOPHEN INJECTION 100 ML IVPB ONE (22:55)
[2022-04-08] MEDS ORDERED: SUCRALFATE 1 GM TABLET (FP) PO ONE (02:51)
[2022-04-08] MEDS ORDERED: MAG HYDROX/AL HYDROX/SIMETH -MYLANTA- ORAL SUSPENSION PO ONE (02:51)
[2022-04-08] MEDS ORDERED: LIDOCAINE VISCOUS 2% ORAL/TOP 15 ML UNIT-DOSE CUP MM ONE (02:51)
[2022-04-08] MEDS ORDERED: SUCRALFATE 1 GM TABLET (FP) ONE (03:03)
[2022-04-08] MEDS ORDERED: LIDOCAINE VISCOUS 2% ORAL/TOP 15 ML UNIT-DOSE CUP ONE (03:03)
[2022-04-08] MEDS ORDERED: MAG HYDROX/AL HYDROX/SIMETH 30 ML UNIT-DOSE CUP ONE (03:04)
[2022-04-08 04:54] VITALS: BP 138/81; PULSE 75; RESP 16; TEMP 97.6
== END 2022-04-08 05:29 | disposition home or self-care (01) ==
LOC: JER 19:15
PROC: 3E0333Z Introduction of Anti-inflammatory into Peripheral Vein, Percutaneous Approach (ICD-10-PCS; principal; 2022-04-07)
PROC: 3E03329 Introduction of Other Anti-infective into Peripheral Vein, Percutaneous Approach (ICD-10-PCS; 2022-04-07)
PROC: 3E033GC Introduction of Other Therapeutic Substance into Peripheral Vein, Percutaneous Approach (ICD-10-PCS; 2022-04-07)
PROC: 3E033NZ Introduction of Analgesics, Hypnotics, Sedatives into Peripheral Vein, Percutaneous Approach (ICD-10-PCS; 2022-04-07)
PROC: 3E033GC Introduction of Other Therapeutic Substance into Peripheral Vein, Percutaneous Approach (ICD-10-PCS; 2022-04-07)
DX: U07.1 COVID-19 (principal); E87.6 Hypokalemia; N39.0 Urinary tract infection, site not specified
CPT/HCPCS: 36415; 71045-TC-FY; 80053; 81003; 83605; 83690; 84484; 85025; 87086; 93005; 93010; 99285-25; C9803-CS; U0003; U0005

== ENCOUNTER 2022-08-02 00:05 | Emergency (ER) | payer OTHER ==
[2022-08-02 00:27] VITALS: BMI 25.9
[2022-08-02] MEDS ORDERED: KETOROLAC TROMETHAMINE 15 MG/ML VIAL IVPUSH ONE (01:36)
[2022-08-02] MEDS ORDERED: SODIUM CHLORIDE 500 ML IV STA (01:36)
[2022-08-02] MEDS ORDERED: KETOROLAC TROMETHAMINE 15 MG/ML VIAL ONE (02:16)
[2022-08-02 02:18] LABS: BASO % 0.3 % (0-2.0); EOS % 0.6 % (0-4.5); HEMATOCRIT 39.8 % (32.4-45.2); HEMOGLOBIN 12.8 GM/dL (10.7-15.3); LYMPH % 15.2 % (8-40); MCH 26.6 pg (25.7-33.7); MCHC 32.2 g/dl (32.0-36.0); MEAN CELL VOLUME 82.7 fl (80-96); MEAN PLT VOLUME 7.5 fl (7.5-11.1); MONO % 6.2 % (3.8-10.2); NEUT % 77.7 % (42.8-82.8); PLATELET COUNT 230 10^3/uL (134-434); RBC 4.81 M/mm3 (3.60-5.2); RDW 13.9 % (11.6-15.6); WHITE BLOOD COUNT 10.1 K/mm3 (4.0-10.0)
[2022-08-02 02:36] LABS: CALCIUM 9.7 mg/dL (8.5-10.1)
[2022-08-02 02:37] LABS: BLOOD UREA NITROGEN 32.6 mg/dL (7-18); MAGNESIUM 2.6 mg/dL (1.8-2.4)
[2022-08-02 02:40] LABS: CREATININE 1.2 mg/dL (0.55-1.3)
[2022-08-02 02:41] LABS: BILIRUBIN,TOTAL 0.5 mg/dL (0.2-1); TOT PROT 7.6 g/dl (6.4-8.2)
[2022-08-02 04:13] LABS: EPI CELLS 21 /uL (0-25.1); HYALINE CASTS 5 /uL (0-3.1); PH,URINE 5.5 (5.0-8.0); URINE APPEARANCE CLOUDY; URINE BACTERIA 53 /uL (0-1359); URINE BILIRUBIN NEGATIVE (NEGATIVE); URINE COLOR YELLOW; URINE GLUCOSE (UA) NEGATIVE (NEGATIVE); URINE KETONE TRACE (NEGATIVE); URINE LEUK ESTERASE 1+ (NEGATIVE); URINE NITRITE NEGATIVE (NEGATIVE); URINE PROTEIN 1+ (NEGATIVE); URINE WBC 120 /uL (0-25.8)
[2022-08-02] MEDS ORDERED: ACETAMINOPHEN 1000 MG/100 ML BAG IVPB ONE (05:06)
[2022-08-02] MEDS ORDERED: CEFTRIAXONE 1,000 MG in DEXTROSE 5%-WATER - 50 ML IVPB ONE (05:06)
[2022-08-02] MEDS ORDERED: morphine CARPU-JECT 2 MG/1 ML DISP.SYRIN IVPUSH ONE (05:12)
[2022-08-02] MEDS ORDERED: CEFTRIAXONE 1 GM/50 ML BAG ONE (05:26)
[2022-08-02] MEDS ORDERED: ACETAMINOPHEN INJECTION 100 ML IVPB ONE (05:26)
[2022-08-02 07:04] VITALS: RESP 16
[2022-08-02 12:27] VITALS: BP 126/74; PULSE 78; TEMP 98.2
== END 2022-08-02 12:27 | disposition home or self-care (01) ==
LOC: JER 00:05
PROC: 3E0333Z Introduction of Anti-inflammatory into Peripheral Vein, Percutaneous Approach (ICD-10-PCS; principal; 2022-08-02)
PROC: 3E03329 Introduction of Other Anti-infective into Peripheral Vein, Percutaneous Approach (ICD-10-PCS; 2022-08-02)
PROC: 3E0333Z Introduction of Anti-inflammatory into Peripheral Vein, Percutaneous Approach (ICD-10-PCS; 2022-08-02)
PROC: 3E033NZ Introduction of Analgesics, Hypnotics, Sedatives into Peripheral Vein, Percutaneous Approach (ICD-10-PCS; 2022-08-02)
PROC: 3E0337Z Introduction of Electrolytic and Water Balance Substance into Peripheral Vein, Percutaneous Approach (ICD-10-PCS; 2022-08-02)
DX: K52.9 Noninfective gastroenteritis and colitis, unspecified (principal)
CPT/HCPCS: 71045-TC-FY; 74177-TC; 80053; 81003; 83605; 83690; 83735; 84484; 85025; 87086; 93005; 93010; 99285-25; Q9967

== ENCOUNTER 2022-08-07 20:41 | Observation (INO) | payer OTHER ==
[2022-08-07] MEDS ORDERED: FAMOTIDINE 20 MG/50 ML IVPB 20 MG/50 ML MG IVPB ONE ×2 (22:03→22:32)
[2022-08-07] MEDS ORDERED: ACETAMINOPHEN 1000 MG/100 ML BAG IVPB ONE (22:03)
[2022-08-07] MEDS ORDERED: ACETAMINOPHEN INJECTION 100 ML IVPB ONE (22:32)
[2022-08-07 22:38] LABS: BASO % 1.2 % (0-2.0); EOS % 0.2 % (0-4.5); HEMATOCRIT 35.3 % (32.4-45.2); HEMOGLOBIN 11.8 GM/dL (10.7-15.3); MCH 27.2 pg (25.7-33.7); MCHC 33.4 g/dl (32.0-36.0); MEAN CELL VOLUME 81.6 fl (80-96); MEAN PLT VOLUME 7.4 fl (7.5-11.1); MONO % 7.4 % (3.8-10.2); NEUT % 58.2 % (42.8-82.8); PLATELET COUNT 235 10^3/uL (134-434); RBC 4.32 M/mm3 (3.60-5.2); RDW 13.5 % (11.6-15.6)
[2022-08-07 22:47] LABS: INR 1.1 (0.83-1.09); PROTHROMBIN TIME (PATIENT) 12.8 SEC (9.7-13.0)
[2022-08-07 22:50] LABS: ACTIVATED PTT 30.3 SECONDS (25.2-36.5)
[2022-08-07 22:59] LABS: CALCIUM 9.7 mg/dL (8.5-10.1)
[2022-08-07 23:00] LABS: ALBUMIN 3.6 g/dl (3.4-5.0); BLOOD UREA NITROGEN 25.2 mg/dL (7-18); MAGNESIUM 2.3 mg/dL (1.8-2.4)
[2022-08-07 23:03] LABS: CREATININE 1.1 mg/dL (0.55-1.3)
[2022-08-07 23:04] LABS: BILIRUBIN,TOTAL 0.5 mg/dL (0.2-1)
[2022-08-08] MEDS ORDERED: ZOLPIDEM TARTRATE 5 MG TABLET PO ONE (03:05)
[2022-08-08] MEDS ORDERED: SUCRALFATE 1 GM TABLET (FP) PO ONE (03:05)
[2022-08-08] MEDS ORDERED: MAG HYDROX/AL HYDROX/SIMETH -MYLANTA- ORAL SUSPENSION PO ONE (03:05)
[2022-08-08] MEDS ORDERED: MAG HYDROX/AL HYDROX/SIMETH 30 ML UNIT-DOSE CUP ONE (03:08)
[2022-08-08] MEDS ORDERED: ZOLPIDEM TARTRATE 5 MG TABLET ONE (03:08)
[2022-08-08] MEDS ORDERED: SUCRALFATE 1 GM TABLET (FP) ONE (03:08)
[2022-08-08 03:32] LABS: URINE APPEARANCE CLEAR; URINE BILIRUBIN NEGATIVE (NEGATIVE); URINE COLOR YELLOW; URINE GLUCOSE (UA) NEGATIVE (NEGATIVE); URINE KETONE NEGATIVE (NEGATIVE); URINE LEUK ESTERASE NEGATIVE (NEGATIVE); URINE NITRITE NEGATIVE (NEGATIVE); URINE PROTEIN NEGATIVE (NEGATIVE); URINE UROBILINOGEN 0.2 mg/dL (0.2-1.0)
[2022-08-08 09:19] VITALS: RESP 18; BMI 29.9
[2022-08-08] MEDS ORDERED: SUCRALFATE 1 GM TABLET (FP) PO SCH (10:00)
[2022-08-08] MEDS ORDERED: PANTOPRAZOLE 40 MG TABLET PO SCH (10:00)
[2022-08-08] MEDS: MEMANTINE HCL 5 MG TABLET (UD) PO SCH ×2 (10:35→22:23)
[2022-08-08 11:26] LABS: BASO % 0.7 % (0-2.0); EOS % 0.6 % (0-4.5); HEMATOCRIT 35.5 % (32.4-45.2); HEMOGLOBIN 11.8 GM/dL (10.7-15.3); LYMPH % 36.4 % (8-40); MCH 27.6 pg (25.7-33.7); MCHC 33.4 g/dl (32.0-36.0); MEAN CELL VOLUME 82.6 fl (80-96); MEAN PLT VOLUME 7.7 fl (7.5-11.1); MONO % 7.1 % (3.8-10.2); NEUT % 55.2 % (42.8-82.8); PLATELET COUNT 237 10^3/uL (134-434); RDW 13.5 % (11.6-15.6); WHITE BLOOD COUNT 7.7 K/mm3 (4.0-10.0)
[2022-08-08 11:48] LABS: CALCIUM 9.4 mg/dL (8.5-10.1)
[2022-08-08 11:49] LABS: BLOOD UREA NITROGEN 19.3 mg/dL (7-18)
[2022-08-08] MEDS: POLYETHYLENE GLYCOL (HEALTHYLAX) 3350 17 GM PACKET PO SCH ×2 (12:41→22:23)
[2022-08-08] MEDS: ARTIFICIAL TEARS (POLYVINYL ALCOHOL) OPTH DROPS OU SCH ×2 (12:41→23:33)
[2022-08-08] MEDS ORDERED: POLYETHYLENE GLYCOL (HEALTHYLAX) 3350 17 GM PACKET PO SCH (15:00)
[2022-08-08] MEDS ORDERED: ACETAMINOPHEN 1000 MG/100 ML BAG IVPB PRN (20:31)
[2022-08-08] MEDS ORDERED: MELATONIN 5 MG TABLETS PO SCH (22:00)
[2022-08-08] MEDS ORDERED: ATORVASTATIN CA 80 MG TABLET (FP) PO SCH (22:00)
[2022-08-08] MEDS ORDERED: DOCUSATE SODIUM 100 MG CAPSULE (FP) PO SCH (22:00)
[2022-08-09 01:32] VITALS: BP 145/92; PULSE 67; TEMP 98.1
[2022-08-09] MEDS ORDERED: ACETAMINOPHEN 325 MG TABLET (FP) PO ONE (01:56)
== END 2022-08-09 02:05 | disposition home or self-care (01) ==
LOC: JER 20:41 → JERBED 08-08 04:03 → J5S 08-08 06:39 → J6S 08-08 15:36
PROVIDERS: ADMIT Internal Medicine; ATTEND Internal Medicine
PROC: 3E033NZ Introduction of Analgesics, Hypnotics, Sedatives into Peripheral Vein, Percutaneous Approach (ICD-10-PCS; principal; 2022-08-08)
PROC: 3E033GC Introduction of Other Therapeutic Substance into Peripheral Vein, Percutaneous Approach (ICD-10-PCS; 2022-08-08)
DX: R10.9 Unspecified abdominal pain (principal); I27.20 Pulmonary hypertension, unspecified; E78.5 Hyperlipidemia, unspecified; E11.9 Type 2 diabetes mellitus without complications; K21.00 Gastro-esophageal reflux disease with esophagitis, without bleeding; F03.90 Unspecified dementia, unspecified severity, without behavioral disturbance, psychotic disturbance, mood disturbance, and anxiety; K59.00 Constipation, unspecified; F41.8 Other specified anxiety disorders; F20.9 Schizophrenia, unspecified; M19.90 Unspecified osteoarthritis, unspecified site; K27.9 Peptic ulcer, site unspecified, unspecified as acute or chronic, without hemorrhage or perforation; F32.9 Major depressive disorder, single episode, unspecified; Z86.73 Personal history of transient ischemic attack (TIA), and cerebral infarction without residual deficits
CPT/HCPCS: 0241U-QW; 36415; 71045-TC-FY; 74177-TC; 80048; 80053; 81003; 83605; 83690; 83735; 84484; 85025; 85610; 85730; 87040; 87086; 93005; 93010; 96365; 96374; 96376; 99285-25; G0378; Q9967

== ENCOUNTER 2022-08-09 15:43 | Emergency (ER) | payer OTHER ==
[2022-08-09 16:00] VITALS: BMI 31.7
[2022-08-09] MEDS ORDERED: FAMOTIDINE 10 MG TABLET PO ONE (16:08)
[2022-08-09] MEDS ORDERED: ACETAMINOPHEN 500 MG TABLET (FP) PO ONE (16:08)
[2022-08-09] MEDS ORDERED: MAG HYDROX/AL HYDROX/SIMETH -MYLANTA- ORAL SUSPENSION PO ONE (16:09)
[2022-08-09] MEDS ORDERED: MAG HYDROX/AL HYDROX/SIMETH 30 ML UNIT-DOSE CUP ONE (16:23)
[2022-08-09] MEDS ORDERED: ACETAMINOPHEN 325 MG TABLET (FP) ONE (16:23)
[2022-08-09] MEDS ORDERED: FAMOTIDINE 20 MG TABLET ONE (16:23)
[2022-08-09] MEDS ORDERED: HYDROCORTISONE ACETATE 25 MG/SUPP.RECT PR ONE (17:09)
[2022-08-09] MEDS ORDERED: SUCRALFATE 1 GM TABLET (FP) PO ONE (17:10)
[2022-08-09] MEDS ORDERED: SUCRALFATE 1 GM TABLET (FP) ONE (17:13)
[2022-08-09 20:52] VITALS: BP 151/89; PULSE 85; RESP 16; TEMP 98.8
== END 2022-08-09 20:53 | disposition home or self-care (01) ==
LOC: JER 15:43
DX: K27.3 Acute peptic ulcer, site unspecified, without hemorrhage or perforation (principal); K21.00 Gastro-esophageal reflux disease with esophagitis, without bleeding; K29.70 Gastritis, unspecified, without bleeding; R10.13 Epigastric pain
CPT/HCPCS: 93005; 93010; 99283-25

== ENCOUNTER 2022-08-11 21:17 | Emergency (ER) | payer OTHER ==
[2022-08-11 21:45] VITALS: BP 128/79; PULSE 83; RESP 19; TEMP 98.5; BMI 29.9
[2022-08-11] MEDS ORDERED: FAMOTIDINE 20 MG TABLET PO ONE (22:25)
[2022-08-11] MEDS ORDERED: MAG HYDROX/AL HYDROX/SIMETH 30 ML UNIT-DOSE CUP PO ONE (22:25)
[2022-08-11] MEDS ORDERED: ACETAMINOPHEN 325 MG TABLET (FP) PO ONE (22:25)
[2022-08-11] MEDS ORDERED: FAMOTIDINE 20 MG TABLET ONE (22:32)
[2022-08-11] MEDS ORDERED: MAG HYDROX/AL HYDROX/SIMETH 30 ML UNIT-DOSE CUP ONE ×2 (22:32→22:59)
[2022-08-11] MEDS ORDERED: ACETAMINOPHEN 325 MG TABLET (FP) ONE (22:32)
[2022-08-11] MEDS ORDERED: LIDOCAINE VISCOUS 2% ORAL/TOP 15 ML UNIT-DOSE CUP MM PRN (22:58)
[2022-08-11] MEDS ORDERED: LIDOCAINE VISCOUS 2% ORAL/TOP 15 ML UNIT-DOSE CUP ONE (22:59)
[2022-08-12] MEDS ORDERED: SUCRALFATE 1 GM TABLET (FP) PO ONE (00:10)
[2022-08-12] MEDS ORDERED: QUEtiapine FUMARATE 25 MG TABLET PO ONE (00:11)
[2022-08-12] MEDS ORDERED: SUCRALFATE 1 GM TABLET (FP) ONE (00:11)
[2022-08-12] MEDS ORDERED: traZODone HCL 50 MG TABLET (FP) PO ONE (00:11)
[2022-08-12] MEDS ORDERED: QUEtiapine FUMARATE 25 MG TABLET ONE (00:32)
== END 2022-08-12 02:33 ==
LOC: JER 21:17
DX: F41.9 Anxiety disorder, unspecified (principal); R10.84 Generalized abdominal pain; Z87.19 Personal history of other diseases of the digestive system
CPT/HCPCS: 93005; 93010; 99283-25

== ENCOUNTER 2022-11-21 23:05 | Emergency (ER) | payer OTHER ==
[2022-11-21 23:29] VITALS: RESP 18; BMI 25.7
[2022-11-21] MEDS ORDERED: KETOROLAC TROMETHAMINE 15 MG/ML VIAL IVPUSH ONE (23:36)
[2022-11-21] MEDS ORDERED: SODIUM CHLORIDE 500 ML IV STA (23:37)
[2022-11-21] MEDS ORDERED: ONDANSETRON 4 MG/2 ML VIAL IVPUSH ONE (23:37)
[2022-11-21] MEDS ORDERED: SUCRALFATE 1 GM/10 ML UNIT DOSE CUPS PO SCH (23:45)
[2022-11-21] MEDS ORDERED: FAMOTIDINE 20 MG/50 ML IVPB 20 MG/50 ML MG IVPB ONE (23:54)
[2022-11-22] MEDS ORDERED: SUCRALFATE 1 GM TABLET (FP) PO ONE
[2022-11-22] MEDS ORDERED: FAMOTIDINE 20 MG TABLET ONE (01:51)
[2022-11-22] MEDS ORDERED: SUCRALFATE 1 GM TABLET (FP) ONE (01:51)
[2022-11-22] MEDS ORDERED: KETOROLAC TROMETHAMINE 15 MG/ML VIAL ONE (01:52)
[2022-11-22 01:57] LABS: INR 1.03 (0.83-1.09)
[2022-11-22 02:00] LABS: ACTIVATED PTT 34.8 SECONDS (25.2-36.5)
[2022-11-22 02:05] LABS: HEMATOCRIT 36.4 % (32.4-45.2); HEMOGLOBIN 11.9 GM/dL (10.7-15.3); MCH 26.8 pg (25.7-33.7); MCHC 32.6 g/dl (32.0-36.0); MEAN CELL VOLUME 82.2 fl (80-96); RBC 4.42 M/mm3 (3.60-5.2); WHITE BLOOD COUNT 8.9 K/mm3 (4.0-10.0)
[2022-11-22 02:06] LABS: BASO % 0.3 % (0-2.0); EOS % 0.9 % (0-4.5); LYMPH % 39.5 % (8-40); MEAN PLT VOLUME 7.4 fl (7.5-11.1); MONO % 8.2 % (3.8-10.2); NEUT % 51.1 % (42.8-82.8); PLATELET COUNT 219 10^3/uL (134-434); RDW 14.4 % (11.6-15.6)
[2022-11-22 02:14] LABS: CALCIUM 9.6 mg/dL (8.5-10.1)
[2022-11-22 02:15] LABS: BLOOD UREA NITROGEN 28.7 mg/dL (7-18)
[2022-11-22 02:17] LABS: CREATININE 1.1 mg/dL (0.55-1.3)
[2022-11-22 02:19] LABS: BILIRUBIN,TOTAL 0.4 mg/dL (0.2-1); TOT PROT 7.4 g/dl (6.4-8.2)
[2022-11-22 10:20] VITALS: BP 135/85; PULSE 99; TEMP 97.5
[2022-11-22] MEDS ORDERED: MAG HYDROX/AL HYDROX/SIMETH 30 ML UNIT-DOSE CUP ONE (11:14)
== END 2022-11-22 11:50 | disposition home or self-care (01) ==
LOC: JER 23:05
PROC: 3E033GC Introduction of Other Therapeutic Substance into Peripheral Vein, Percutaneous Approach (ICD-10-PCS; principal; 2022-11-21)
PROC: 3E0233Z Introduction of Anti-inflammatory into Muscle, Percutaneous Approach (ICD-10-PCS; 2022-11-21)
DX: R10.84 Generalized abdominal pain (principal); R10.13 Epigastric pain; Z20.822 Contact with and (suspected) exposure to COVID-19
CPT/HCPCS: 0241U-QW; 36415; 74177-TC; 80053; 83605; 83690; 84484; 85025; 85610; 85730; 86850; 86900; 86901; 93005; 93010; 99285-25; Q9967